=== PATIENT | female | born 1945 | race Caucasian/White ===

== ENCOUNTER → 2017-05-19 10:35 | Outpatient (CLI) | payer MEDICARE, OTHER, SELFPAY ==
[2017-05-19 11:31] LABS: Albumin, Serum 3.4 g/dL (3.2-5.0); BUN 19 mg/dL (7-18); BUN/Creat Ratio 17.6 RATIO (10-20); Calcium,Total 8.8 mg/dL (8.5-10.1); Chloride 105 mmol/L (98-107); Creatinine, Serum 1.08 mg/dL (0.55-1.02); EST Glomerular Filtration Rate 53 mL/min (>60); Est Glom Filt Rate - Afr Amer 64 mL/min (>60); Glucose 89 mg/dL (74-106); Phosphorus 2.8 mg/dL (2.5-4.9); Potassium 3.6 mmol/L (3.5-5.1); Sodium Level 141 mmol/L (136-145)
== END ==
PROVIDERS: Family Provider Family Medicine; PCP Family Medicine; Visit Provider Internal Medicine Nephrology
DX: N18.3 Chronic kidney disease, stage 3 (moderate) (principal)
CPT/HCPCS: 36415; 80069

== ENCOUNTER → 2017-07-27 12:55 | Outpatient (CLI) | payer MEDICARE, OTHER, SELFPAY ==
--- NOTE | 2017-07-27 12:57 | CDU_ITS ---
Reason For Study: Vertigo Rt. Velocities/BP Lt. Velocities/BP Prox CCA 97/12 cm/sec. Prox CCA 133/19 cm/sec. Mid CCA 104/16 cm/sec. Mid CCA 112/21 cm/sec. Dist CCA 87/12 cm/sec. Dist CCA 98/19 cm/sec. Prox ICA 96/22 cm/sec. Prox ICA 87/21 cm/sec. Mid ICA 103/24 cm/sec. Mid ICA 93/21 cm/sec. Dist ICA 129/38 cm/sec. Dist ICA 125/33 cm/sec. Rt. ICA/CCA = 1.24. Lt. ICA/CCA = 1.11. Prox ECA 140/8 cm/sec. Prox ECA 128/14 cm/sec. Rt. Vert. 48/9 cm/sec. Lt. Vert. 79/20 cm/sec. Right Extracranial There is heterogeneous, irregular atherosclerotic plaque noted in the right common carotid artery. There is heterogeneous, irregular atherosclerotic plaque noted in the right internal carotid artery. There is no significant atherosclerotic plaque noted in the right external carotid artery. Antegrade flow is noted in the right vertebral artery. Left Extracranial There is homogeneous, smooth atherosclerotic plaque noted in the left common carotid artery. There is heterogeneous, irregular atherosclerotic plaque noted in the left internal carotid artery. There is no significant atherosclerotic plaque noted in the left external carotid artery. Antegrade flow is noted in the left vertebral artery. Procedure Carotid Duplex [id number]. Exam performed in department. Interpretation Summary Minimal irregular calcific plague at the proximal right internal carotid with 50-69% stenosis, likely closer to 50%. Minimal irregular calcific plague at the proximal left internal carotid with <50% stenosis. Normal flow bilateral external carotids Patent and antegrade vertebrals bilaterally. Ordering Physician: Alexa Jack Referring Physician: Donny Herndon Performed By: Linda Walter, RDCS, RVT
[2017-07-27 15:31] LABS: Anion Gap 8 (5-15); BUN 24 mg/dL (7-18); BUN/Creat Ratio 18.3 RATIO (10-20); Calcium,Total 9.1 mg/dL (8.5-10.1); Chloride 106 mmol/L (98-107); Creatinine, Serum 1.31 mg/dL (0.55-1.02); EST Glomerular Filtration Rate 43 mL/min (>60); Est Glom Filt Rate - Afr Amer 51 mL/min (>60); Glucose 90 mg/dL (74-106); Potassium 3.6 mmol/L (3.5-5.1); Sodium Level 142 mmol/L (136-145)
== END ==
PROVIDERS: Family Provider Family Medicine; PCP Family Medicine; Visit Provider Physician Assistant Medical
DX: R42 Dizziness and giddiness (principal); R94.4 Abnormal results of kidney function studies
CPT/HCPCS: 36415; 80048; 93880

== ENCOUNTER → 2017-08-05 10:29 | Outpatient (CLI) | payer MEDICARE, OTHER, SELFPAY ==
[2017-08-05 10:34] LABS: Bacteria 0 SEEN /hpf (None Seen); Mucous, Urine 0 SEEN /hpf (<or=2+); Red Blood Cells-Urine 0 SEEN /hpf (0-5)
[2017-08-05 11:53] LABS: Color, Urine Yellow (Yellow); Glucose, Dipstick Normal (Normal); Ketone-Dipstick Negative (Negative); Leukocyte Esterase-Dipstick 500 /ul (Negative); Nitrite-Dipstick Negative (Negative); Occult Blood-Urine 10 /ul (Negative); Protein-Dipstick Negative (Negative); Urine Bilirubin Dipstick Negative (Negative); Urine Clarity Clear (Clear); Urine Urobilinogen Normal (Normal); Urine pH 6.5 (5.0 - 8.0)
[2017-08-05 11:56] LABS: Absolute Lymphocyte Count 1.93 X10^3/ul (0.83-4.51); Absolute Neutrophil Count 5.9 X10^3/uL (2.0-7.7); Basophil# 0.02 X10^3/uL; Basophil% 0.2 % (0-1); Eosinophil# 0.23 X10^3/uL; Eosinophils% 2.7 % (0-5); Hematocrit 41.2 % (37-47); Hemoglobin 13.1 g/dl (12.0-15.0); Lymphocyte # 1.93 X10^3/ul (4.0); Lymphocyte % 22.6 % (19-41); Mean Corp Hgb Conc 31.8 g/gl (32-36); Mean Corpuscular Volume 91.4 fL (81-99); Mean Platelet Vol. 9.8 fl (6.2-12.0); Monocyte# 0.41 X10^3/uL; Monocyte% 4.8 % (0-10); Neutrophil # 5.94 X10^3/uL (2.7-7.7); Neutrophil % 69.6 % (47-70); Platelet Count 280 K/mm3 (150-450); RBC Distribution Width CV 13.8 % (11.6-14.6); RBC Distribution Width SD 45.4 fl (35.1-43.9); Red Blood Count 4.51 M/mm3 (4.2-5.4); White Blood Count 8.5 K/mm3 (4.4-11.0)
[2017-08-05 11:58] LABS: POSITIVE COUNT NO; POSITIVE DIFFERENTIAL NO; POSITIVE MORPHOLOGY NO
[2017-08-05 12:14] LABS: Hemoglobin A1c 5.7 % (4.2-6.3)
[2017-08-05 12:19] LABS: Squamous Epithelial Cells - UA 0-5 SEEN /hpf (5-10); White Blood Cells 0-5 SEEN /hpf (0-5)
[2017-08-05 12:28] LABS: ALB/GLOB Ratio 0.9 RATIO (0.9-2.4); AST(SGOT) 11 U/L (15-37); Alanine Aminotransfer ALT/SGPT 21 U/L (13-56); Albumin, Serum 3.5 g/dL (3.2-5.0); Alkaline Phosphatase 111 U/L (45-117); Anion Gap 9 (5-15); BUN 19 mg/dL (7-18); BUN/Creat Ratio 16.2 RATIO (10-20); Calcium,Total 8.8 mg/dL (8.5-10.1); Chloride 107 mmol/L (98-107); Cholesterol 159 mg/dL (200); Creatinine, Serum 1.17 mg/dL (0.55-1.02); EST Glomerular Filtration Rate 48 mL/min (>60); Est Glom Filt Rate - Afr Amer 59 mL/min (>60); Globulin 3.8 g/dL (2.2-4.2); Glucose 89 mg/dL (74-106); High Density Lipoprotein 56 mg/dL; Potassium 3.9 mmol/L (3.5-5.1); Protein, Total 7.3 g/dL (6.4-8.2); Sodium Level 140 mmol/L (136-145); Triglycerides 177 mg/dL; Very Low Density Lipoprotein 35 mg/dL (5-40)
[2017-08-05 12:35] LABS: Protein, Urine (Random) 12.7 mg/dL (<11.9); Protein:Creat Ratio 141 mg/g CRE (0-200)
[2017-08-05 12:47] LABS: Vitamin D,25 Hydroxy 26.7 ng/mL (29.95-100.01)
[2017-08-05 12:49] LABS: Digoxin Level 1.22 ng/mL (0.80-2.00)
== END ==
PROVIDERS: Family Provider Family Medicine; PCP Family Medicine; Visit Provider Family Medicine
DX: I12.9 Hypertensive chronic kidney disease with stage 1 through stage 4 chronic kidney disease, or unspecified chronic kidney disease (principal); N18.3 Chronic kidney disease, stage 3 (moderate); R73.02 Impaired glucose tolerance (oral); E78.5 Hyperlipidemia, unspecified
CPT/HCPCS: 36415; 80053; 80061; 80162; 81001; 82306; 82570; 83036; 84156; 85025

== ENCOUNTER → 2017-11-23 11:08 | Outpatient (CLI) | payer MEDICARE, OTHER, SELFPAY ==
[2017-11-23 12:49] LABS: Protein, Urine (Random) < 6.0 mg/dL (<11.9)
[2017-11-23 13:14] LABS: Albumin, Serum 3.6 g/dL (3.2-5.0); BUN 19 mg/dL (7-18); BUN/Creat Ratio 17.8 RATIO (10-20); Calcium,Total 9.3 mg/dL (8.5-10.1); Chloride 105 mmol/L (98-107); Creatinine, Serum 1.07 mg/dL (0.55-1.02); EST Glomerular Filtration Rate 54 mL/min (>60); Est Glom Filt Rate - Afr Amer 65 mL/min (>60); Glucose 101 mg/dL (74-106); Potassium 3.7 mmol/L (3.5-5.1); Sodium Level 140 mmol/L (136-145)
== END ==
PROVIDERS: Family Provider Family Medicine; PCP Family Medicine; Visit Provider Internal Medicine Nephrology
DX: N18.3 Chronic kidney disease, stage 3 (moderate) (principal)
CPT/HCPCS: 36415; 80069; 82570; 84156

== ENCOUNTER → 2017-12-08 10:28 | Outpatient (CLI) | payer MEDICARE, OTHER, SELFPAY ==
[2017-12-08 10:31] LABS: Bacteria 0 SEEN /hpf (None Seen); Mucous, Urine 0 SEEN /hpf (<or=2+); Red Blood Cells-Urine 0 SEEN /hpf (0-5)
[2017-12-08 12:15] LABS: Glucose, Dipstick Normal (Normal); Ketone-Dipstick Negative (Negative); Leukocyte Esterase-Dipstick 25 /ul (Negative); Nitrite-Dipstick Negative (Negative); Occult Blood-Urine Negative /ul (Negative); Protein-Dipstick Negative (Negative); Urine Bilirubin Dipstick Negative (Negative); Urine Urobilinogen Normal (Normal)
[2017-12-08 12:21] LABS: Color, Urine Yellow (Yellow); Urine Clarity Clear (Clear)
[2017-12-08 12:29] LABS: AST(SGOT) 18 U/L (15-37); Alanine Aminotransfer ALT/SGPT 27 U/L (13-56); Albumin, Serum 3.8 g/dL (3.2-5.0); Alkaline Phosphatase 108 U/L (45-117); Anion Gap 11 (5-15); BUN 23 mg/dL (7-18); BUN/Creat Ratio 17.6 RATIO (10-20); Calcium,Total 9.1 mg/dL (8.5-10.1); Chloride 104 mmol/L (98-107); Cholesterol 144 mg/dL (200); Creatinine, Serum 1.31 mg/dL (0.55-1.02); EST Glomerular Filtration Rate 42 mL/min (>60); Est Glom Filt Rate - Afr Amer 51 mL/min (>60); Globulin 3.9 g/dL (2.2-4.2); Glucose 96 mg/dL (74-106); High Density Lipoprotein 53 mg/dL; Potassium 3.7 mmol/L (3.5-5.1); Protein, Total 7.7 g/dL (6.4-8.2); Sodium Level 138 mmol/L (136-145); Squamous Epithelial Cells - UA 0-5 SEEN /hpf (5-10); Triglycerides 134 mg/dL; Very Low Density Lipoprotein 27 mg/dL (5-40); White Blood Cells 0-5 SEEN /hpf (0-5)
[2017-12-08 12:46] LABS: Hemoglobin A1c 5.4 % (4.2-6.3)
[2017-12-08 15:22] LABS: Absolute Lymphocyte Count 1.66 X10^3/ul (0.83-4.51); Basophil# 0.02 X10^3/uL; Basophil% 0.2 % (0-1); Eosinophil# 0.21 X10^3/uL; Eosinophils% 2.5 % (0-5); Hematocrit 42.3 % (37-47); Hemoglobin 13.7 g/dl (12.0-15.0); Lymphocyte # 1.66 X10^3/ul (4.0); Lymphocyte % 19.9 % (19-41); Mean Corp Hgb Conc 32.4 g/gl (32-36); Mean Corpuscular Hgb 29.6 pg (27.0-32.0); Mean Corpuscular Volume 91.4 fL (81-99); Mean Platelet Vol. 9.9 fl (6.2-12.0); Monocyte# 0.49 X10^3/uL; Monocyte% 5.9 % (0-10); Neutrophil # 5.96 X10^3/uL (2.7-7.7); Neutrophil % 71.4 % (47-70); POSITIVE COUNT NO; POSITIVE DIFFERENTIAL NO; POSITIVE MORPHOLOGY NO; Platelet Count 297 K/mm3 (150-450); RBC Distribution Width CV 14.2 % (11.6-14.6); Red Blood Count 4.63 M/mm3 (4.2-5.4); White Blood Count 8.4 K/mm3 (4.4-11.0)
[2017-12-09 09:53] LABS: Vitamin D,25 Hydroxy 45.3 ng/mL (29.95-100.01)
== END ==
PROVIDERS: Family Provider Family Medicine; PCP Family Medicine; Visit Provider Family Medicine
DX: I10 Essential (primary) hypertension (principal); E55.9 Vitamin D deficiency, unspecified; R73.02 Impaired glucose tolerance (oral); E78.5 Hyperlipidemia, unspecified
CPT/HCPCS: 36415; 80053; 80061; 81001; 82306; 83036; 85025

== ENCOUNTER → 2018-04-07 10:40 | Outpatient (CLI) | payer MEDICARE, OTHER, SELFPAY ==
[2017-07-15 13:31] VITALS: BMI 33.0
[2018-04-07 12:31] LABS: Absolute Lymphocyte Count 1.81 X10^3/ul (0.83-4.51); Absolute Neutrophil Count 5.5 X10^3/uL (2.0-7.7); Basophil# 0.02 X10^3/uL; Basophil% 0.2 % (0-1); Eosinophil# 0.28 X10^3/uL; Eosinophils% 3.5 % (0-5); Hematocrit 42.7 % (37-47); Hemoglobin 13.9 g/dl (12.0-15.0); Lymphocyte # 1.81 X10^3/ul (4.0); Lymphocyte % 22.5 % (19-41); Mean Corp Hgb Conc 32.6 g/gl (32-36); Mean Corpuscular Hgb 29.9 pg (27.0-32.0); Mean Corpuscular Volume 91.8 fL (81-99); Mean Platelet Vol. 9.7 fl (6.2-12.0); Monocyte# 0.44 X10^3/uL; Monocyte% 5.5 % (0-10); Neutrophil # 5.47 X10^3/uL (2.7-7.7); Neutrophil % 68.1 % (47-70); Platelet Count 297 K/mm3 (150-450); RBC Distribution Width CV 14.4 % (11.6-14.6); RBC Distribution Width SD 47.2 fl (35.1-43.9); Red Blood Count 4.65 M/mm3 (4.2-5.4)
[2018-04-07 12:33] LABS: POSITIVE COUNT NO; POSITIVE DIFFERENTIAL NO; POSITIVE MORPHOLOGY NO
[2018-04-07 12:48] LABS: Hemoglobin A1c 5.9 % (4.2-6.3)
[2018-04-07 12:49] LABS: AST(SGOT) 16 U/L (15-37); Alanine Aminotransfer ALT/SGPT 26 U/L (13-56); Albumin, Serum 3.6 g/dL (3.2-5.0); Alkaline Phosphatase 121 U/L (45-117); Anion Gap 9 (5-15); BUN 17 mg/dL (7-18); BUN/Creat Ratio 14.7 RATIO (10-20); Chloride 106 mmol/L (98-107); Cholesterol 206 mg/dL (200); Creatinine, Serum 1.16 mg/dL (0.55-1.02); EST Glomerular Filtration Rate 49 mL/min (>60); Est Glom Filt Rate - Afr Amer 59 mL/min (>60); Globulin 3.6 g/dL (2.2-4.2); Glucose 89 mg/dL (74-106); High Density Lipoprotein 59 mg/dL; Protein, Total 7.2 g/dL (6.4-8.2); Sodium Level 142 mmol/L (136-145); Triglycerides 184 mg/dL; Very Low Density Lipoprotein 37 mg/dL (5-40)
[2018-04-07 13:05] LABS: Vitamin D,25 Hydroxy 39.4 ng/mL (29.95-100.01)
== END ==
PROVIDERS: Family Provider Family Medicine; PCP Family Medicine; Visit Provider Family Medicine
DX: E55.9 Vitamin D deficiency, unspecified (principal); I10 Essential (primary) hypertension; R73.02 Impaired glucose tolerance (oral)
CPT/HCPCS: 36415; 80053; 80061; 82306; 83036; 85025

== ENCOUNTER → 2018-05-06 12:09 | Outpatient (CLI) | payer MEDICARE, OTHER, SELFPAY ==
[2017-07-15 13:31] VITALS: BMI 33.0
== END ==
LOC: MFPLAB 12:10 → LABSPEC 12:10
PROVIDERS: Family Provider Family Medicine; PCP Family Medicine; Visit Provider Family Medicine
DX: N39.0 Urinary tract infection, site not specified (principal)
CPT/HCPCS: 87086; 87088; 87186

== ENCOUNTER → 2018-07-13 09:52 | Outpatient (CLI) | payer MEDICARE, OTHER, SELFPAY ==
[2018-06-21 14:02] VITALS: BMI 36.1
[2018-07-13 11:23] LABS: Albumin, Serum 3.6 g/dL (3.2-5.0); BUN 18 mg/dL (7-18); Calcium,Total 8.9 mg/dL (8.5-10.1); Chloride 105 mmol/L (98-107); Creatinine, Serum 1.06 mg/dL (0.55-1.02); EST Glomerular Filtration Rate 54 mL/min (>60); Est Glom Filt Rate - Afr Amer 66 mL/min (>60); Glucose 91 mg/dL (74-106); Sodium Level 140 mmol/L (136-145)
== END ==
PROVIDERS: Family Provider Family Medicine; PCP Family Medicine; Referring Provider Internal Medicine Nephrology; Visit Provider Internal Medicine Nephrology
DX: N17.9 Acute kidney failure, unspecified (principal)
CPT/HCPCS: 36415; 80069

== ENCOUNTER → 2018-07-29 11:33 | Outpatient (CLI) | payer MEDICARE, OTHER, SELFPAY ==
[2018-06-21 14:02] VITALS: BMI 36.1
[2018-07-29 15:37] LABS: Absolute Lymphocyte Count 1.74 X10^3/ul (0.83-4.51); Absolute Neutrophil Count 6.7 X10^3/uL (2.0-7.7); Basophil# 0.02 X10^3/uL; Basophil% 0.2 % (0-1); Eosinophil# 0.21 X10^3/uL; Eosinophils% 2.3 % (0-5); Hematocrit 44.3 % (37-47); Hemoglobin 14.2 g/dl (12.0-15.0); Lymphocyte # 1.74 X10^3/ul (4.0); Lymphocyte % 18.9 % (19-41); Mean Corp Hgb Conc 32.1 g/gl (32-36); Mean Corpuscular Hgb 29.3 pg (27.0-32.0); Mean Corpuscular Volume 91.3 fL (81-99); Mean Platelet Vol. 9.9 fl (6.2-12.0); Monocyte% 5.4 % (0-10); Neutrophil # 6.69 X10^3/uL (2.7-7.7); Neutrophil % 72.9 % (47-70); Platelet Count 304 K/mm3 (150-450); RBC Distribution Width CV 14.7 % (11.6-14.6); RBC Distribution Width SD 47.9 fl (35.1-43.9); Red Blood Count 4.85 M/mm3 (4.2-5.4); White Blood Count 9.2 K/mm3 (4.4-11.0)
[2018-07-29 15:39] LABS: POSITIVE COUNT NO; POSITIVE DIFFERENTIAL NO; POSITIVE MORPHOLOGY NO
[2018-07-29 15:53] LABS: ALB/GLOB Ratio 1.2 RATIO (0.9-2.4); AST(SGOT) 21 U/L (15-37); Alanine Aminotransfer ALT/SGPT 29 U/L (13-56); Albumin, Serum 3.8 g/dL (3.2-5.0); Alkaline Phosphatase 121 U/L (45-117); Anion Gap 10 (5-15); BUN 21 mg/dL (7-18); BUN/Creat Ratio 17.6 RATIO (10-20); Calcium,Total 9.3 mg/dL (8.5-10.1); Chloride 106 mmol/L (98-107); Cholesterol 176 mg/dL (200); Creatinine, Serum 1.19 mg/dL (0.55-1.02); EST Glomerular Filtration Rate 47 mL/min (>60); Est Glom Filt Rate - Afr Amer 57 mL/min (>60); Globulin 3.1 g/dL (2.2-4.2); Glucose 108 mg/dL (74-106); High Density Lipoprotein 55 mg/dL; Potassium 4.1 mmol/L (3.5-5.1); Protein, Total 6.9 g/dL (6.4-8.2); Sodium Level 143 mmol/L (136-145); Triglycerides 270 mg/dL; Very Low Density Lipoprotein 54 mg/dL (5-40)
[2018-07-29 16:08] LABS: Hemoglobin A1c 5.9 % (4.2-6.3)
[2018-07-29 16:52] LABS: Vitamin D,25 Hydroxy 29.9 ng/mL (29.95-100.01)
== END ==
PROVIDERS: Family Provider Family Medicine; PCP Family Medicine; Referring Provider Family Medicine; Visit Provider Family Medicine
DX: I10 Essential (primary) hypertension (principal); E78.5 Hyperlipidemia, unspecified; E55.9 Vitamin D deficiency, unspecified; R73.02 Impaired glucose tolerance (oral)
CPT/HCPCS: 36415; 80053; 80061; 82306; 83036; 85025

== ENCOUNTER → 2018-10-27 09:34 | Outpatient (CLI) | payer MEDICARE, OTHER, SELFPAY ==
[2018-06-21 14:02] VITALS: BMI 36.1
--- NOTE | 2018-10-27 09:39 | BD_ITS ---
STUDY: DUAL ENERGY X-RAY ABSORPTIOMETRY / DXA REASON FOR EXAM: Female, 73 years old. The patient is postmenopausal. Loss of eye. TECHNIQUE: Bone Mineral Density (BMD) measurements of lumbar spine and bilateral hips were obtained. COMPARISON: None. FINDINGS: Lumbar Spine (L1-L4): g/cm2 (1.088) / T-score (-0.7) / Z-score (1.0) Findings are suggestive of normal bone density with a low fracture risk. Left Femur Total: g/cm2 (0.966) / T-score (-0.3) / Z-score (1.3) Left Femoral Neck: g/cm2 (0.830) / T-score (-1.5) / Z-score (0.3) Right Femur Total: g/cm2 (0.972) / T-score (-0.3) / Z-score (1.3) Right Femoral Neck: g/cm2 (0.869) / T-score (-1.2) / Z-score (0.6) BD/Dexa Bone Density Study IMPRESSION: The patient is considered osteopenic as outlined below according to World [employer] Organization (WHO) criteria with a low fracture risk. Reference Information: The T-score is the number of standard deviations above or below the standard which is normal for young adults at their peak bone mineral density. The World Health Organization (WHO) interprets the T-scores as follows: Above -1 Normal bone density Between -1 and -2.5 Osteopenia Equal to / or below -2.5 Osteoporosis As a practical clinical guideline, osteopenia may be graded as follows: Mild -1 through -1.5 Moderate -1.6 through -2.0 Severe -2.1 through -2.4 The Z-score is the number of standard deviations above or below age-matched controls. A Z-score of less than -1.5 would be considered abnormal. References: 1. NIH Osteoporosis and Related Bone Diseases http://www.osteo.org 2. International Society for Clinical Densitometry http://www.iscd.org 3. National Osteoporosis Foundation http://www.nof.org Electronically Signed: Parish Dhillon, at 11:05 EDT , Service support ,
== END ==
PROVIDERS: Family Provider Family Medicine; PCP Family Medicine; Referring Provider Family Medicine; Visit Provider Family Medicine
DX: Z13.820 Encounter for screening for osteoporosis (principal); Z78.0 Asymptomatic menopausal state
CPT/HCPCS: 77080

== ENCOUNTER → 2018-11-09 15:29 | Outpatient (CLI) | payer MEDICARE, OTHER, SELFPAY ==
[2018-06-21 14:02] VITALS: BMI 36.1
--- NOTE | 2018-11-09 15:31 | BI_ITS ---
MAMMOGRAPHY - BILATERAL SCREENING REASON FOR EXAM: Female, 73 years old. Routine annual screening examination. PERTINENT HISTORY: Non-contributory. TECHNIQUE: Digital bilateral breast brandt (3D mammographic acquisition) in the CC and MLO projections. 2-D mediolateral oblique (MLO) and craniocaudad (CC) views of both breasts were obtained. CAD: Full Field Digital Mammography with Computer Added Detection was performed. COMPARISON: Comparison is made with prior examination dated September 05, 2016. FINDINGS: Breast Composition: The breasts are heterogeneously dense, which may obscure small masses. Stable subcentimeter well-defined nodules in the central aspect of the left breast suggestive of small cysts. Correlation with ultrasound is recommended. Stable appearance of the densely calcified nodule in the inferior medial aspect of the right breast in keeping with a calcifying fibroadenoma. No other significant abnormalities are identified. There has been no significant change since the prior study. BI/SCREEN MAMM (CAD) W/BRANDT BILAT IMPRESSION: Stable bilateral screening mammogram. Correlation with ultrasound of the left breast is recommended to assess the subcentimeters nodules most likely representing cysts. ASSESSMENT CATEGORY: BIRADS Category 0: Incomplete. Need additional imaging evaluation. A letter regarding these results will be sent to the patient by the facility within 30 days. Approximately 10% of breast cancers are not detected by mammography. A normal mammogram should not delay biopsy of a clinically suspicious abnormality. [id number] Electronically Signed: Parish Dhillon, at 9:14 EDT , Service support ,
== END ==
PROVIDERS: Family Provider Family Medicine; PCP Family Medicine; Referring Provider Family Medicine; Visit Provider Family Medicine
DX: Z12.31 Encounter for screening mammogram for malignant neoplasm of breast (principal)
CPT/HCPCS: 77063; 77067

== ENCOUNTER → 2018-11-12 09:54 | Outpatient (CLI) | payer MEDICARE, OTHER, SELFPAY ==
[2018-06-21 14:02] VITALS: BMI 36.1
--- NOTE | 2018-11-12 09:57 | US_ITS ---
STUDY: ULTRASOUND BREAST - LEFT REASON FOR EXAM: Female, 73 years old. Abnormal screening mammogram. TECHNIQUE: Axial and longitudinal images of the LEFT breast were performed with a high resolution ultrasound transducer. COMPARISON: Comparison is made with prior mammogram dated November 09, 2018. FINDINGS: LEFT Breast: The mammographic abnormality correspond to multiple small cysts. The largest cyst measures 7 mm x 6 mm x 5 mm. This is at the 7:00 position of the breast at 3 cm from the nipple. US/Breast Limited Unilateral IMPRESSION: Multiple small cysts. Routine annual mammographic follow-up is recommended. ASSESSMENT CATEGORY: BIRADS Category 2: Benign. A letter regarding these results will be sent to the patient by the facility within 30 days. Electronically Signed: Parish Dhillon, at 11:09 EDT , Service support ,
== END ==
PROVIDERS: Family Provider Family Medicine; PCP Family Medicine; Referring Provider Family Medicine; Visit Provider Family Medicine
DX: R92.8 Other abnormal and inconclusive findings on diagnostic imaging of breast (principal)
CPT/HCPCS: 76642

== ENCOUNTER → 2018-12-14 11:05 | Outpatient (CLI) | payer MEDICARE, OTHER, SELFPAY ==
[2018-06-21 14:02] VITALS: BMI 36.1
[2018-12-14 12:33] LABS: Absolute Lymphocyte Count 1.45 X10^3/uL (0.83-4.51); Absolute Neutrophil Count 7.4 X10^3/uL (2.0-7.7); Basophil# 0.05 X10^3/uL; Basophil% 0.5 % (0-1); Eosinophil# 0.36 X10^3/uL; Eosinophils% 3.6 % (0-5); Hematocrit 42.3 % (37-47); Hemoglobin 13.4 g/dL (12.0-15.0); Lymphocyte # 1.45 X10^3/ul (4.0); Lymphocyte % 14.5 % (19-41); Mean Corp Hgb Conc 31.7 g/dL (32-36); Mean Corpuscular Hgb 29.1 pg (27.0-32.0); Mean Platelet Vol. 9.6 fl (6.2-12.0); Monocyte# 0.65 X10^3/uL; Monocyte% 6.5 % (0-10); NRBC Flagged by Analyzer 0 % (0-5); Neutrophil # 7.44 X10^3/uL (2.7-7.7); Neutrophil % 74.6 % (47-70); Platelet Count 303 K/mm3 (150-450); RBC Distribution Width CV 14.3 % (11.6-14.6); RBC Distribution Width SD 47.8 fl (35.1-43.9)
[2018-12-14 12:45] LABS: Hemoglobin A1c 5.6 % (4.2-6.3)
[2018-12-14 12:50] LABS: ALB/GLOB Ratio 0.9 RATIO (0.9-2.4); AST(SGOT) 18 U/L (15-37); Alanine Aminotransfer ALT/SGPT 24 U/L (13-56); Albumin, Serum 3.5 g/dL (3.2-5.0); Alkaline Phosphatase 112 U/L (45-117); Anion Gap 8 (5-15); BUN 25 mg/dL (7-18); BUN/Creat Ratio 22.5 RATIO (10-20); Calcium,Total 9.4 mg/dL (8.5-10.1); Chloride 106 mmol/L (98-107); Cholesterol 152 mg/dL (200); Creatinine, Serum 1.11 mg/dL (0.55-1.02); EST Glomerular Filtration Rate 51 mL/min (>60); Est Glom Filt Rate - Afr Amer 62 mL/min (>60); Globulin 3.7 g/dL (2.2-4.2); Glucose 89 mg/dL (74-106); High Density Lipoprotein 52 mg/dL; Magnesium 1.9 mg/dL (1.6-2.6); Potassium 3.8 mmol/L (3.5-5.1); Protein, Total 7.2 g/dL (6.4-8.2); Sodium Level 141 mmol/L (136-145); Triglycerides 201 mg/dL; Very Low Density Lipoprotein 40 mg/dL (5-40)
[2018-12-14 13:12] LABS: Vitamin D,25 Hydroxy 49.8 ng/mL (29.95-100.01)
== END ==
PROVIDERS: Family Provider Family Medicine; PCP Family Medicine; Referring Provider Family Medicine; Visit Provider Family Medicine
DX: E55.9 Vitamin D deficiency, unspecified (principal); I10 Essential (primary) hypertension; E78.5 Hyperlipidemia, unspecified; R73.02 Impaired glucose tolerance (oral); I47.1 Supraventricular tachycardia
CPT/HCPCS: 36415; 80053; 80061; 82306; 83036; 83735; 85025

== ENCOUNTER → 2018-12-28 09:08 | Outpatient (CLI) | payer MEDICARE, OTHER, SELFPAY ==
[2018-06-21 14:02] VITALS: BMI 36.1
--- NOTE | 2018-12-28 09:09 | RAD_ITS ---
STUDY: X-RAY - ESOPHAGUS (BARIUM SWALLOW) WITH FLUOROSCOPY REASON FOR EXAM: Female, 73 years old. Worsening dysphagia in the lower esophagus. TECHNIQUE: 15 view(s) of the esophagus were obtained following swallowing of barium. FLUOROSCOPY TIME (if supplied): (0:30) minutes/seconds COMPARISON: None. FINDINGS: There is no demonstrated esophageal foreign body. There is no demonstrated stricture or mucosal abnormality. There is a small hiatal hernia of the fundus of the stomach. Mild degree of gastroesophageal reflux. The patient ingested a 12 mm tablet of barium. The tablet history at the gastroesophageal junction. There is atherosclerotic calcification of the aortic arch with tortuosity of the descending aorta. Normal visualized pulmonary parenchyma. There are diffuse degenerative changes of the visualized thoracic spine. RAD/Esophagus Only IMPRESSION: Small sliding hiatal hernia with mild degree of gastroesophageal reflux. The ingested 12 mm tablet of barium is trapped at the gastroesophageal junction. Electronically Signed: Parish Dhillon, at 9:32 EDT , Service support ,
== END ==
PROVIDERS: Family Provider Family Medicine; PCP Family Medicine; Referring Provider Family Medicine; Visit Provider Family Medicine
DX: R13.10 Dysphagia, unspecified (principal)
CPT/HCPCS: 74220

== ENCOUNTER → 2019-02-01 13:34 | Outpatient (CLI) | payer MEDICARE, OTHER, SELFPAY ==
[2019-01-04 13:00] VITALS: BMI 36.2
== END ==
PROVIDERS: Family Provider Family Medicine; PCP Family Medicine; Referring Provider Family Medicine; Visit Provider Family Medicine
DX: N39.0 Urinary tract infection, site not specified (principal)
CPT/HCPCS: 87086; 87088; 87186

== ENCOUNTER 2019-02-04 08:49 | Day surgery (SDC) | payer MEDICARE, OTHER, SELFPAY ==
--- NOTE | 2019-02-02 01:35 | HP_ITS ---
Intake Vital Signs 02/02/19 Body Mass Index (BMI) 36.2 02/02/19 Height 5 ft 5 in 02/02/19 Weight: 210 lb 02/02/19 Body Mass Index (BMI) 34.9 02/02/19 Blood Pressure 154/80 H 02/02/19 Blood Pressure Location Rt brachial 02/02/19 Blood Pressure Position Sitting 02/02/19 Respiratory Rate 18 Intake Visit Reasons: Dysphagia Service Planner Required: No Is patient in pain?: No Allergies No Known Allergies Allergy (Verified 02/02/19 10:04) Medications lactobacillus combination no.8 3 billion cell capsule 3,000 mmu cells PO QDAY 04/20/17 [History Confirmed 02/02/19] magnesium 400 mg (as magnesium oxide) capsule 400 mg PO QDAY cap 04/20/17 [History Confirmed 02/02/19] metoprolol succinate ER 100 mg tablet,extended release 24 hr 100 mg PO QDAY tab 04/20/17 [History Confirmed 02/02/19] multivitamin tablet 1 tab PO QDAY 04/20/17 [History Confirmed 02/02/19] triamterene 37.5 mg-hydrochlorothiazide 25 mg capsule 1 cap PO QDAY 04/20/17 [History Confirmed 02/02/19] aspirin 81 mg tablet,delayed release 81 mg PO QDAY 11/25/17 [History Confirmed 02/02/19] coenzyme Q10 100 mg capsule 100 mg PO QDAY #1 cap 11/25/17 [Rx Confirmed 02/02/19] cholecalciferol (vitamin D3) 4,000 unit capsule 4,000 unit PO DAILY 06/21/18 [History Confirmed 02/02/19] omega-3 fatty acids 1,000 mg capsule 1,000 mg PO DAILY 06/21/18 [History Confirmed 02/02/19] turmeric 400 mg capsule mg PO BID cap 06/21/18 [History Confirmed 02/02/19] flecainide 50 mg tablet 50 mg PO Q12H #180 tab 12/31/18 [Rx Confirmed 02/02/19] calcium carbonate 600 mg calcium (1,500 mg) tablet 600 mg PO DAILY 01/04/19 [History Confirmed 02/02/19] digoxin 125 mcg tablet 125 mcg PO QDAY #90 tab 01/04/19 [Rx Confirmed 02/02/19] potassium chloride ER 10 mEq tablet,extended release(part/cryst) 10 meq PO .every other day #15 tab 01/10/19 [Rx Confirmed 02/02/19] rosuvastatin 10 mg tablet 20 mg PO QDAY tab 02/02/19 [History Confirmed 02/02/19] PFSH Medical History Hypertension (Chronic) Paroxysmal SVT (supraventricular tachycardia) (Chronic) Hyperlipidemia (Acute) Obesity (Acute) CKD (chronic kidney disease) stage 3, GFR 30-59 ml/min (Chronic) Surgical History History of cholecystectomy (Resolved) Hx of appendectomy (Resolved) Family History Mother CAD (coronary artery disease) Brother Aortic aneurysm Father CAD (coronary artery disease) Social History (Updated 02/02/19 @ 13:35 by Rubén Hansen MD) Smoking Status: Former smoker alcohol intake: current alcohol intake frequency: holidays/special occasions only Alcohol type: hard liquor substance use type: does not use caffeine: Yes Type: tea what type of physical activity do you participate in: none seatbelt use: always do you feel safe at home: Yes HPI HPI HPI: KEERTHI CONDE, is a 73 F who presents to the office today for HPI HPI Surgical H&P: Yes HPI: KEERTHI CONDE, is a 73 F who presents to the office today for surgical consultation regarding intermittent esophageal food bolus obstruction.. The patient is referred by Dr. Donny Moncada and a written copy of my surgical consult recommendations will be returned to him. The patient states that occasionally intermittently when she eats particular foods she will get a horrible pain in her retrosternal area and will have saliva and bubbles until it passes. She says sometimes taking sugar and lemon will help break up the lodging. She has not had an upper endoscopy for this problem. For over 10 years she had has the symptoms. She states her brother who is now had to take pills 30 minutes before meals to relax muscles. She has a past history of heavy tobacco use a 2 pack/day. She claims she quit 20 years ago. She denies personal family history of Vásquez's esophagus. She states that she does not experience reflux symptoms. She has not been taking any type of acid reducing medication. She denies bright red blood per rectum or melena. She has not had any weight loss and actually slightly progressive weight gain. Her most recent colonoscopy was in 2011. She was told next routine exam in 10 years. She does see Dr. Prabhjot Krishnamurthy because she has paroxysmal supraventricular tachycardia. She also notes that she has a known history of extracranial carotid artery occlusive disease. We have records dated July 18, 2016 carotid duplex exam performed at the [facility] demonstrating 20 to 39% stenosis of the right internal carotid. Bidirectional flow in the right vertebral consistent with incomplete subclavian steal. 50 to 99% stenosis of the right subclavian. 40 to 59% stenosis of the left internal carotid. Patent antegrade left vertebral. To help evaluate her swallowing problems on December 28, 2018 at the [facility] the patient had barium swallow. This demonstrated no foreign body at that time. Small hiatal hernia. Mild degree of reflux. The 12 mm barium tablet became lodged at the EG junction. As of July 29, 2018 hemoglobin was 14.2 with hematocrit of 44.3 and platelet count 304,000. BUN is 21 creatinine 1.19. ROS General General: Yes weight change; no appetite, fatigue, colon cancer, breast cancer or weakness HEENT HEENT: Yes difficulty swallowing; no eye injury, eye surgery, swollen glands or hoarseness Endo Endocrine: No thyroid disease, diabetes mellitus, thyroid cancer, Hair loss, heat intolerance or cold intolerance Skin Skin: No rash or changing moles Breast Breast: No left breast lump, right breast lump, nipple discharge, breast pain, abnormal mammogram, abnormal US or breast enlargement Musc Musculoskeletal: Yes arthritis; no back problems, rheumatoid arthritis, gout or joint pain Cardio Cardiovascular: Yes murmur, atrial fibrillation and high blood pressure; no pacemaker, heart disease, heart attack, heart stent, palpitations, shortness of breat with exertion or chest pain Psych Psychiatric: No depression, anxiety or hearing voices Resp Respiratory: No shortness of breath, No sleep apnea, No cough, No COPD, No asthma, No emphysema, No wheezing Gastro Gastrointestinal: No abdominal pain, No nausea or vomiting, No diarrhea, No constipation, No blood in stool, No acid reflux, No hemorrhoids, No ulcers, Yes gallbladder problem, No black,tarry stools Tan Hematologic: No blood thinners, No blood disorders, No bleeding, No anemia, No blood clots Neuro Neurologic: No system reviewed and no additional complaints, except as docu, No as per HPI, No abnormal walking, No abnormal hearing, No abnormal movements, No abnormal speech, No behavioral changes, No burning sensations, No confusion, No seizure-like activity, No unsteadiness, No dizziness, No localized weakness, No frequent falls, No headache(s), No lack of coordination, No loss of vision, No memory loss, No numbness, No other visual disturbances, No radiating pain, No restless legs, No sensory deficit, No fainting, No tingling, No tremor(s), No weakness, No other Exam Const General: cooperative, comfortable, no acute distress Nutritional Appearance: obese Orientation: alert, awake HENNE Head: normal to inspection Chest Breast Palpation: No nipple discharge Other: Mild kyphosis noted Resp Effort & Inspection: normal respiratory effort Auscultation: clear to auscultation bilaterally Cardio Rhythm: regular rhythm Heart Sounds: murmur Other: Bilateral radials and brachials are 3+ Bilateral carotids 3+. Soft 1/6 bruit inferior right neck occasional ectopic beat noted GI Inspection: obesity Palpation: soft, no hepatosplenomegaly Auscultation: normal bowel sounds Skin General: no rashes or lesions noted Neuro Cognition: normal cognition Extrem General: no calf tenderness bilaterally Psych Affect: normal affect Assessment & Plan Problems 1. Hiatal hernia with gastroesophageal reflux K21.9; K44.9 2. 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 T18.108A 3. Stenosis of left carotid artery I65.22 Plan Findings are consistent with episodes of distal esophageal food bolus esophageal obstruction. Adarsh appears to be a primary culprit. Barium swallow demonstrates a small hiatal hernia with reflux disease. She may very well have silent reflux problems. She may have a Schatzki ring I am recommending the patient a esophagogastroduodenoscopy with biopsy and if need be distal esophageal dilatation. In great detail with her present I have described the technique, benefits, risks, alternatives. She has had an opportunity to ask and have questions answered. We will utilize monitored anesthesia care. Regarding her asymptomatic extracranial carotid artery occlusive disease we will obtain carotid duplex imaging. It appears from previous imaging that the patient had evolving right subclavian steal phenomena I very much appreciate the kind opportunity of assisting with her surgical care. CC: Dr Donny Hansen M.D., F.A.C.S. Coding Level of Care Code 87428 Diagnoses Hiatal hernia with gastroesophageal reflux K21.9; K44.9 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 T18.108A Stenosis of left carotid artery I65.22 ??Carotid artery disease type: stenosis 02/02/19 1335 <Electronically signed by Rubén mayo MD> Date _ Rubén Hansen MD I have re-examined the patient. There are no clinical changes since date of exam.
[2019-02-02 10:05] VITALS: BMI 36.2
--- NOTE | 2019-02-04 | IMM_PTH ---
PATIENT: KEERTHI CONDE LOC: EN U#:[id number] AGE/SX: 73/F ROOM: RE02/04/[address]: Dr. Rubén Hansen MD : 1945 BED: DIS: 02/04/2019 SPEC #: [id number] RECD: 02/07/19 10:22 STATUS: ARMANDO REQ #: [id number] LEBRON: 02/04/19 00:[address]: Rubén Hansen DEPT: IMMUNOHISTOCHEMISTRY RECD BY: Emely Wilde ENTERED: 02/07/19 10:22 SP TYPE: IMMUNO OTHR DR: Dr. Donny Herndon MD Tissues: A - Stomach, NOS Procedures: H Pylori (initial) PHYSICIAN & INSTITUTION [place] [id number] SPECIMEN INFORMATION: Tissue Source: A - Antrum biopsy Clinical Info: Dysphagia Specimen Number: [id number] CPT code: 37510 METHODOLOGY: Deparaffinized sections of prefer/formalin-fixed tissue or PAP/DQ stained slides are incubated with monoclonal/polyclonal antibodies/oligonucleotide probes. Localization is made via biotin free immunoperoxidase method. Appropriate controls are performed and reacted as expected. Results on target cell population are indicated in the following table: RESULTS: ANTIBODY / CLONE RESULT Block A H Pylori (polyclonal) negative These tests were developed and their performance characteristics determined by [facility]. They may not have been cleared or approved by the U.S. Food and Drug Administration. The FDA has determined that such clearance or approval is not necessary. The above immunohistochemical/dualISH markers are ordered and reviewed by the Pathologist. INTERPRETATION: A. Antrum biopsy: Negative for Helicobacter pylori organisms. SJ:janice 02/07/19
[2019-02-04 09:24] VITALS: BP 137/48; PULSE 66; RESP 16; TEMP 36.3; O2SAT 96; BMI 36.3
[2019-02-04] MEDS: Lactated Ringers 1,000 ML 100 ML IV (09:35)
--- NOTE | 2019-02-04 10:00 | EGD_PTH ---
PATIENT: KEERTHI CONDE LOC: EN U#:[id number] AGE/SX: 73/F ROOM: RE02/04/[address]: Dr. Rubén Hansen MD : 1945 BED: DIS: 02/04/2019 SPEC #: [id number] RECD: 02/04/19 12:43 STATUS: ARMANDO CHRYSTAL #: [id number] LEBRON: 02/04/19 10:[address]: Rubén Hansen DEPT: SURGICAL PATHOLOGY RECD BY: Isael Graf ENTERED: 02/04/19 13:10 SP TYPE: EGD BIOPSY OT DR: Dr. Donny Herndon MD Tissues: A - Gastric mucous membrane B - Esophageal mucous membrane Procedures: Special Stain Group II Surgery Specimen Level IV Alcian Blue/PAS (control) HEADER OPERATION: EGD ([facility] [place]), possible dilation PRE-OP DIAGNOSIS: Dysphagia TISSUE SUBMITTED: A - Antrum biopsy, B - Schatzki ring biopsy MICROSCOPIC DIAGNOSIS A. Antrum biopsy: Mild gastritis. See microscopic description and comment. B. Schatzki ring biopsy: A fragment of gastroesophageal mucosa with moderate chronic inflammation and changes consistent with gastroesophageal reflux disease. Intestinal metaplasia (goblet cell metaplasia) is not identified. See comment. SJ:rg 02/07/19 COMMENT A. The results of immunohistochemistry for Helicobacter pylori will be reported separately ([id number]). B. Alcian blue/PAS stain with matched control is used in the evaluation of the specimen. MICROSCOPIC DESCRIPTION Slides are reviewed. A. The specimen shows fragments of gastric mucosa with chronic inflammatory cell infiltrates in the lamina propria consisting of lymphocytes and plasma cells, consistent with mild chronic gastritis. GROSS DESCRIPTION A - Received in fixative is one container labeled with the patient's name and designated antrum biopsy. The specimen consists of two irregular fragments of light rod soft tissue that in aggregate measure 0.6 x 0.5 x 0.2 cm. The specimen is totally submitted in one cassette. B - Received in fixative is one container labeled with the patient's name and designated Schatzki ring biopsy. The specimen consists of one irregular fragment of light rod soft tissue that measures 0.6 x 0.3 x 0.1 cm. The specimen is totally submitted in one cassette. / ROSEANNE:janice 02/04/19 TC:3 CPT: 61927 x2, 11548
[2019-02-04 10:46] VITALS: BP 137/48; BP 90/39; PULSE 59; RESP 16; TEMP 36.3; O2SAT 92
--- NOTE | 2019-02-04 10:48 | OP.ENDO_ITS ---
02/04/2019 Donny Herndon [address] [place] [address] Re : Upper GI endoscopy procedure for Catherine Cabral Dear Dr. Herndon This procedure was performed on Monday, February 04, 2019. My impressions and recommendations are as follows: Impressions : Recommendations : - Discharge patient to home. - Resume previous diet. - Continue present medications. - Use Prilosec (omeprazole) 40 mg PO daily. - Return to my office in 2 weeks. My findings are described in the full procedure note, which is enclosed. If I can be of further assistance, please feel free to contact me at Doctor phone number(s): Work: . Sincerely, Rubén Hansen MD 02/04/2019 10:48:06 AM This report has been signed electronically.
[2019-02-04 10:50] VITALS: BP 116/50; BP 137/48; PULSE 54; RESP 16; O2SAT 95
[2019-02-04 10:55] VITALS: BP 119/47; BP 137/48; PULSE 52; RESP 16; O2SAT 95
[2019-02-04 11:12] VITALS: BP 117/42; BP 137/48; PULSE 56; RESP 18; TEMP 36.6; O2SAT 95
[2019-02-04 11:49] VITALS: BP 137/48
== END 2019-02-04 11:52 | disposition home or self-care (01) ==
LOC: EN 08:49 → AC 09:09
PROVIDERS: Family Provider Family Medicine; PCP Family Medicine; Referring Provider Family Medicine; Visit Provider Surgery
PROC: 0DJ08ZZ Inspection of Upper Intestinal Tract, Via Natural or Artificial Opening Endoscopic (ICD-10-PCS; CPT 43235; principal; 2019-02-04 09:55)
DX: K29.50 Unspecified chronic gastritis without bleeding (principal); R13.10 Dysphagia, unspecified; T18.108A Unspecified foreign body in esophagus causing other injury, initial encounter; I47.1 Supraventricular tachycardia; K21.9 Gastro-esophageal reflux disease without esophagitis; K44.9 Diaphragmatic hernia without obstruction or gangrene; I65.22 Occlusion and stenosis of left carotid artery; E78.5 Hyperlipidemia, unspecified; N18.3 Chronic kidney disease, stage 3 (moderate); I12.9 Hypertensive chronic kidney disease with stage 1 through stage 4 chronic kidney disease, or unspecified chronic kidney disease; Z90.49 Acquired absence of other specified parts of digestive tract; Z79.82 Long term (current) use of aspirin; Z87.891 Personal history of nicotine dependence; Z79.899 Other long term (current) drug therapy
CPT/HCPCS: 43239; 43249; 88305; 88313; 88342; J7120; J2405

== ENCOUNTER → 2019-02-15 09:42 | Outpatient (CLI) | payer MEDICARE, OTHER, SELFPAY ==
[2019-02-02 10:05] VITALS: BMI 36.2
[2019-02-04 09:24] VITALS: BMI 36.3
--- NOTE | 2019-02-15 09:43 | CDU_ITS ---
Reason For Study: carotid stenosis Rt. Velocities/BP Lt. Velocities/BP Prox CCA 104.7/12.1 cm/sec. Prox CCA 113.4/15.1 cm/sec. Mid CCA 94.3/13.4 cm/sec. Mid CCA 108.4/18.8 cm/sec. Dist CCA 83.9/17.3 cm/sec. Dist CCA 103.5/20.0 cm/sec. Prox ICA 100.8/18.6 cm/sec. Prox ICA 91.3/18.8 cm/sec. Mid ICA 93.0/21.3 cm/sec. Mid ICA 119.3/27.9 cm/sec. Dist ICA 123.1/10.8 cm/sec. Dist ICA 127.9/20.6 cm/sec. Rt. ICA/CCA = 1.3. Lt. ICA/CCA = 1.2. Prox ECA 117.8/10.8 cm/sec. Prox ECA 143/20.6 cm/sec. Rt. Vert. 28.9/6.9 cm/sec. Lt. Vert. 93.7/17.0 cm/sec. Right Extracranial There is homogeneous, smooth atherosclerotic plaque noted in the right common carotid artery. There is heterogeneous, irregular atherosclerotic plaque noted in the right internal carotid artery. The right internal carotid artery is very tortuous. There is intimal thickening but no significant atherosclerotic plaque noted in the right external carotid artery. Abnormal waveform morphology noted in the right vertebral artery. Left Extracranial There is homogeneous, smooth atherosclerotic plaque noted in the left common carotid artery. There is heterogeneous, irregular atherosclerotic plaque noted in the left internal carotid artery. The left internal carotid artery is very tortuous. There is intimal thickening but no significant atherosclerotic plaque noted in the left external carotid artery. Antegrade flow is noted in the left vertebral artery. Procedure Carotid Duplex [id number]. The exam was diagnostic. Exam performed in department. Interpretation Summary Mild irregular plague at the proximal right internal carotid artery with <50% stenosis <50% stenosis right external carotid Mild irregular plague at the proximal left internal carotid with 50-69% stenosis, far closer to 50%. <50% stenosis left external carotid Patent, antegrade vertebrals bilaterally. Velocity on the left slightly elevated. No significant change since 07/27/17 Ordering Physician: Rubén Hansen Performed By: Calos Stokes RVT
== END ==
PROVIDERS: Family Provider Family Medicine; PCP Family Medicine; Referring Provider Surgery; Visit Provider Surgery
DX: I65.22 Occlusion and stenosis of left carotid artery (principal)
CPT/HCPCS: 93880

== ENCOUNTER → 2019-04-18 10:27 | Outpatient (CLI) | payer MEDICARE, OTHER, SELFPAY ==
[2019-04-18 12:58] LABS: Hemoglobin A1c 5.6 % (4.2-6.3); Vitamin D,25 Hydroxy 59.8 ng/mL (29.95-100.01)
[2019-04-18 13:11] LABS: ALB/GLOB Ratio 1.1 RATIO (0.9-2.4); AST(SGOT) 21 U/L (15-37); Alanine Aminotransfer ALT/SGPT 34 U/L (13-56); Albumin, Serum 3.9 g/dL (3.2-5.0); Alkaline Phosphatase 114 U/L (45-117); Anion Gap 8 (5-15); BUN 26 mg/dL (7-18); BUN/Creat Ratio 22.6 RATIO (10-20); Calcium,Total 9.3 mg/dL (8.5-10.1); Chloride 101 mmol/L (98-107); Creatinine, Serum 1.15 mg/dL (0.55-1.02); EST Glomerular Filtration Rate 49 mL/min (>60); Est Glom Filt Rate - Afr Amer 60 mL/min (>60); Globulin 3.7 g/dL (2.2-4.2); Glucose 101 mg/dL (74-106); Phosphorus 3.1 mg/dL (2.5-4.9); Potassium 3.5 mmol/L (3.5-5.1); Protein, Total 7.6 g/dL (6.4-8.2); Sodium Level 136 mmol/L (136-145)
== END ==
PROVIDERS: Family Provider Family Medicine; PCP Family Medicine; Visit Provider Family Medicine
DX: I10 Essential (primary) hypertension (principal); E55.9 Vitamin D deficiency, unspecified; R73.02 Impaired glucose tolerance (oral); M85.80 Other specified disorders of bone density and structure, unspecified site
CPT/HCPCS: 36415; 80053; 82306; 83036; 84100

== ENCOUNTER → 2019-10-06 09:21 | Outpatient (CLI) | payer MEDICARE, OTHER, SELFPAY ==
[2019-06-24 11:01] VITALS: BMI 38.0
--- NOTE | 2019-10-06 09:27 | BI_ITS ---
MAMMOGRAPHY - BILATERAL DIAGNOSTIC REASON FOR EXAM: Female, 74 years old. BILAT DX FOR RT DISCHARGE - NO FA M HX - NO PREV AMITA G''S - DISCHARGE 10/01/19 RED-BROWN IN COLOR PERTINENT HISTORY: Right nipple discharge TECHNIQUE: Digital examination. Mediolateral oblique (MLO) and craniocaudad (CC) views of both breasts were obtained, along with 3-D tomosynthesis. CAD: CAD was performed on this study. COMPARISON: 11/09/2018 FINDINGS: Breast Composition: The breasts are heterogeneously dense, which may obscure small masses. Multiple stable appearing subcentimeter nodules in both breasts with partially calcified likely fibroadenoma in the lower inner right breast. No suspicious mammographic findings. However, because the patient complains of right nipple discharge, further evaluation of the right breast with ultrasound is recommended. BI/DIAG MAMM W/CAD, BILAT IMPRESSION: Further ultrasonographic evaluation recommended, as described above. Recall Side: Right Breast ASSESSMENT CATEGORY: BIRADS Category 0: Incomplete. Need additional imaging evaluation. A letter regarding these results will be sent to the patient by the facility within 30 days. FOLLOW UP RECOMMENDATION: Ultrasound Recommended. (I) Approximately 10% of breast cancers are not detected by mammography. A normal mammogram should not delay biopsy of a clinically suspicious abnormality. Electronically Signed: Chuck Livingston MD at 10:43 EDT , Service support ,
--- NOTE | 2019-10-06 09:27 | US_ITS ---
STUDY: ULTRASOUND BREAST - RIGHT REASON FOR EXAM: Female, 74 years old. Nipple discharge TECHNIQUE: Axial and longitudinal images of the RIGHT breast were performed with a high resolution ultrasound transducer. # OF IMAGES: 51 COMPARISON: None. FINDINGS: RIGHT Breast: Sonographic evaluation of the upper outer and inner quadrants of the right breast shows normal dense fibroglandular tissue. There are a few scattered dilated ducts but no sonographic evidence of papilloma or inflammatory process. No suspicious shadowing solid lesion or architectural distortion. US/Breast Limited Unilateral IMPRESSION: No suspicious sonographic findings, nonspecifically dilated retroareolar ducts noted. ASSESSMENT CATEGORY: BIRADS Category 2: Benign. A letter regarding these results will be sent to the patient by the facility within 30 days. Electronically Signed: Chuck Livingston MD at 11:20 EDT , Service support ,
== END ==
PROVIDERS: PCP Family Medicine; Referring Provider Family Medicine; Visit Provider Family Medicine
DX: N64.52 Nipple discharge (principal)
CPT/HCPCS: 76642; 77062; 77066; G0279

== ENCOUNTER → 2019-10-21 11:01 | Outpatient (CLI) | payer MEDICARE, OTHER, SELFPAY ==
[2019-10-13 14:19] VITALS: BMI 36.3
[2019-10-21 12:58] LABS: Absolute Lymphocyte Count 1.74 X10^3/uL (0.83-4.51); Absolute Neutrophil Count 6.1 X10^3/uL (2.0-7.7); Basophil# 0.04 X10^3/uL; Basophil% 0.5 % (0-1); Eosinophil# 0.22 X10^3/uL; Eosinophils% 2.5 % (0-5); Hematocrit 43.1 % (37-47); Hemoglobin 13.8 g/dL (12.0-15.0); Lymphocyte # 1.74 X10^3/ul (4.0); Lymphocyte % 20.1 % (19-41); Mean Corpuscular Hgb 30.5 pg (27.0-32.0); Mean Corpuscular Volume 95.1 fL (81-99); Mean Platelet Vol. 9.7 fl (6.2-12.0); Monocyte# 0.47 X10^3/uL; Monocyte% 5.4 % (0-10); NRBC Flagged by Analyzer 0 % (0-5); Neutrophil # 6.14 X10^3/uL (2.7-7.7); Neutrophil % 71.2 % (47-70); Platelet Count 278 K/mm3 (150-450); RBC Distribution Width CV 14.4 % (11.6-14.6); RBC Distribution Width SD 49.1 fl (35.1-43.9); Red Blood Count 4.53 M/mm3 (4.2-5.4); White Blood Count 8.6 K/mm3 (4.4-11.0)
[2019-10-21 13:00] LABS: Vitamin D,25 Hydroxy 73.2 ng/mL
[2019-10-21 13:01] LABS: AST(SGOT) 18 U/L (15-37); Alanine Aminotransfer ALT/SGPT 26 U/L (13-56); Albumin, Serum 3.5 g/dL (3.2-5.0); Alkaline Phosphatase 105 U/L (45-117); Anion Gap 6 (5-15); BUN 21 mg/dL (7-18); BUN/Creat Ratio 18.3 RATIO (10-20); Calcium,Total 9.2 mg/dL (8.5-10.1); Chloride 106 mmol/L (98-107); Cholesterol 143 mg/dL (200); Creatinine, Serum 1.15 mg/dL (0.55-1.02); EST Glomerular Filtration Rate 49 mL/min (>60); Est Glom Filt Rate - Afr Amer 59 mL/min (>60); Globulin 3.4 g/dL (2.2-4.2); Glucose 97 mg/dL (74-106); High Density Lipoprotein 52 mg/dL; Potassium 3.9 mmol/L (3.5-5.1); Protein, Total 6.9 g/dL (6.4-8.2); Sodium Level 139 mmol/L (136-145); Triglycerides 146 mg/dL; Very Low Density Lipoprotein 29 mg/dL (5-40)
[2019-10-21 13:38] LABS: Hemoglobin A1c 5.8 % (3.8-5.6)
== END ==
PROVIDERS: PCP Family Medicine; Referring Provider Family Medicine; Visit Provider Family Medicine
DX: E78.5 Hyperlipidemia, unspecified (principal); I10 Essential (primary) hypertension; R73.02 Impaired glucose tolerance (oral); E83.42 Hypomagnesemia; E55.9 Vitamin D deficiency, unspecified
CPT/HCPCS: 36415; 80053; 80061; 82306; 83036; 83735; 85025

== ENCOUNTER → 2019-11-16 09:57 | Outpatient (CLI) | payer MEDICARE, OTHER, SELFPAY ==
[2019-10-13 14:19] VITALS: BMI 36.3
[2019-11-16 12:17] LABS: Albumin, Serum 3.6 g/dL (3.2-5.0); BUN 22 mg/dL (7-18); BUN/Creat Ratio 21.4 RATIO (10-20); Calcium,Total 9.3 mg/dL (8.5-10.1); Chloride 108 mmol/L (98-107); Creatinine, Serum 1.03 mg/dL (0.55-1.02); EST Glomerular Filtration Rate 56 mL/min (>60); Est Glom Filt Rate - Afr Amer 67 mL/min (>60); Glucose 102 mg/dL (74-106); Phosphorus 3.3 mg/dL (2.5-4.9); Potassium 3.7 mmol/L (3.5-5.1); Sodium Level 141 mmol/L (136-145)
[2019-11-16 12:22] LABS: AST(SGOT) 16 U/L (15-37); Alanine Aminotransfer ALT/SGPT 27 U/L (13-56); Albumin, Serum 3.6 g/dL (3.2-5.0); Alkaline Phosphatase 96 U/L (45-117); Bilirubin, Direct 0.17 mg/dL (0.00-0.30); Cholesterol 133 mg/dL (200); Globulin 3.6 g/dL (2.2-4.2); High Density Lipoprotein 53 mg/dL; Protein, Total 7.2 g/dL (6.4-8.2); Triglycerides 147 mg/dL; Very Low Density Lipoprotein 29 mg/dL (5-40)
[2019-11-16 12:22] LABS: Protein, Urine (Random) 10.6 mg/dL (<11.9); Protein:Creat Ratio 149 mg/g CRE (0-200)
== END ==
PROVIDERS: Internal Medicine Nephrology; PCP Family Medicine; Referring Provider Family Medicine; Visit Provider Internal Medicine Cardiovascular Disease
DX: N18.3 Chronic kidney disease, stage 3 (moderate) (principal); E78.00 Pure hypercholesterolemia, unspecified
CPT/HCPCS: 36415; 80061; 80069; 80076; 82570; 84156

== ENCOUNTER → 2020-02-20 09:52 | Outpatient (CLI) | payer MEDICARE, OTHER, SELFPAY ==
[2019-12-27 11:12] VITALS: BMI 38.2
--- NOTE | 2020-02-20 09:53 | CDU_ITS ---
Reason For Study: CAROTID STENOSIS Rt. Velocities/BP Lt. Velocities/BP Prox CCA 116.4/20.0 cm/sec. Prox CCA 100.3/21.7 cm/sec. Mid CCA 119.1/18.6 cm/sec. Mid CCA 100.3/16.3 cm/sec. Dist CCA 95.6/14.7 cm/sec. Dist CCA 131.3/19.9 cm/sec. Prox ICA 121.0/31.6 cm/sec. Prox ICA 123.3/28.5 cm/sec. Mid ICA 112.4/24.8 cm/sec. Mid ICA 103.3/24.8 cm/sec. Dist ICA 183.0/48.0 cm/sec. Dist ICA 257.2/44.8 cm/sec. Rt. ICA/CCA = 183.0/119.1=1.5. Lt. ICA/CCA = 257.2/131.3=1.9. Prox ECA 143.0/13.3 cm/sec. Prox ECA 256.3/10.7 cm/sec. Rt. Vert. 23.3/11.2 cm/sec. Lt. Vert. 84.2/21.5 cm/sec. Right Extracranial There is homogeneous, smooth atherosclerotic plaque noted in the right common carotid artery. There is heterogeneous, irregular atherosclerotic plaque noted in the right internal carotid artery. There is homogeneous, smooth atherosclerotic plaque noted in the right external carotid artery. The right external carotid artery is tortuous. Abnormal waveform morphology noted in the right vertebral artery. There is heterogeneous, irregular atherosclerotic plaque noted in the right bulb. Left Extracranial There is homogeneous, smooth atherosclerotic plaque noted in the left common carotid artery. There is heterogeneous, irregular atherosclerotic plaque noted in the left internal carotid artery. The tortuous nature of the left internal carotid artery may result in flow velocities overestimating the degree of stenosis. There is homogeneous, smooth atherosclerotic plaque noted in the left external carotid artery. Antegrade flow is noted in the left vertebral artery. There is homogeneous, smooth atherosclerotic plaque noted in the left bulb. Procedure Carotid Duplex 53665. The exam was diagnostic. The study was technically difficult. Exam performed in department. Interpretation Summary Irregular calcific plaque with shadowing at the proximal right internal carotid with 50 to 69% stenosis. <50% stenosis right external carotid Irregular calcific plaque with shadowing at the proximal left internal and external carotid arteries. Less than 50% stenosis of the proximal left internal carotid. Velocities are elevated in the distal left internal carotid at 257.2 cm/s peak systolic flow however this is an area of significant tortuosity and likely is artificially elevated. >50% stenosis left external carotid Prestenotic flow right vertebral. Patent antegrade flow left vertebral. Possible progression of disease bilaterally compared to February 15, 2019. Challenging examination. Ordering Physician: Rubén Hansen Referring Physician: Donny Herndon Performed By: Syl Mora, JACINTO, RVT
== END ==
PROVIDERS: PCP Family Medicine; Referring Provider Surgery; Visit Provider Surgery
DX: I65.23 Occlusion and stenosis of bilateral carotid arteries (principal)
CPT/HCPCS: 93880

== ENCOUNTER → 2020-05-07 10:41 | Outpatient (CLI) | payer MEDICARE, OTHER, SELFPAY ==
[2020-03-13 14:28] VITALS: BMI 38.2
[2020-05-07 12:44] LABS: Absolute Lymphocyte Count 1.75 X10^3/uL (0.83-4.51); Absolute Neutrophil Count 5.7 X10^3/uL (2.0-7.7); Basophil# 0.04 X10^3/uL; Basophil% 0.5 % (0-1); Eosinophil# 0.66 X10^3/uL; Eosinophils% 7.7 % (0-5); Hematocrit 45.8 % (37-47); Hemoglobin 14.9 g/dL (12.0-15.0); Lymphocyte # 1.75 X10^3/ul (4.0); Lymphocyte % 20.4 % (19-41); Mean Corp Hgb Conc 32.5 g/dL (32-36); Mean Corpuscular Volume 92.2 fL (81-99); Mean Platelet Vol. 10.2 fl (6.2-12.0); Monocyte# 0.41 X10^3/uL; Monocyte% 4.8 % (0-10); NRBC Flagged by Analyzer 0 % (0-5); Neutrophil % 66.4 % (47-70); Platelet Count 285 K/mm3 (150-450); RBC Distribution Width CV 14.1 % (11.6-14.6); RBC Distribution Width SD 47.7 fl (35.1-43.9); Red Blood Count 4.97 M/mm3 (4.2-5.4); White Blood Count 8.6 K/mm3 (4.4-11.0)
[2020-05-07 12:52] LABS: Vitamin D,25 Hydroxy 56.8 ng/mL
[2020-05-07 12:53] LABS: Hemoglobin A1c 5.6 % (3.8-5.6)
[2020-05-07 12:55] LABS: AST(SGOT) 14 U/L (15-37); Alanine Aminotransfer ALT/SGPT 25 U/L (13-56); Albumin, Serum 3.5 g/dL (3.2-5.0); Alkaline Phosphatase 120 U/L (45-117); Anion Gap 9 (5-15); BUN 22 mg/dL (7-18); BUN/Creat Ratio 18.2 RATIO (10-20); Calcium,Total 8.9 mg/dL (8.5-10.1); Chloride 105 mmol/L (98-107); Cholesterol 126 mg/dL (200); Creatinine, Serum 1.21 mg/dL (0.55-1.02); EST Glomerular Filtration Rate 46 mL/min (>60); Est Glom Filt Rate - Afr Amer 56 mL/min (>60); Globulin 3.5 g/dL (2.2-4.2); Glucose 120 mg/dL (74-106); High Density Lipoprotein 55 mg/dL; Potassium 3.6 mmol/L (3.5-5.1); Sodium Level 140 mmol/L (136-145); Triglycerides 167 mg/dL; Very Low Density Lipoprotein 33 mg/dL (5-40)
[2020-05-07 13:52] LABS: Protein, Urine (Random) 11.8 mg/dL (<11.9); Protein:Creat Ratio 109 mg/g CRE (0-200)
== END ==
PROVIDERS: PCP Family Medicine; Visit Provider Family Medicine
DX: N18.30 Chronic kidney disease, stage 3 unspecified (principal); E78.5 Hyperlipidemia, unspecified; R73.02 Impaired glucose tolerance (oral); E83.42 Hypomagnesemia
CPT/HCPCS: 36415; 80053; 80061; 82306; 82570; 83036; 83735; 84156; 85025

== ENCOUNTER 2020-06-19 08:23 | Outpatient (RCR) | payer MEDICARE, OTHER, SELFPAY ==
[2020-03-13 14:28] VITALS: BMI 38.2
[2020-06-19] MEDS: COVID-19 VACC, MRNA(PFIZER)/PF 30 MCG/0.3 ML SYRINGE IM (10:51)
[2020-07-10] MEDS: COVID-19 VACC, MRNA(PFIZER)/PF 30 MCG/0.3 ML SYRINGE IM (10:39)
== END 2020-09-18 23:59 ==
LOC: IMMUN 08:23
PROVIDERS: PCP Family Medicine; Visit Provider Family Medicine
DX: Z23 Encounter for immunization (principal)
CPT/HCPCS: 0001A; 0002A; 91300

== ENCOUNTER 2020-06-26 06:23 | Day surgery (SDC) | payer MEDICARE, OTHER, SELFPAY ==
[2020-03-13 14:28] VITALS: BMI 38.2
[2020-06-26] VITALS (7 sets, daily range): BP systolic 106–144; BP diastolic 43–55; PULSE 60–65; RESP 16; TEMP 37.1–37.6; O2SAT 92–97; BMI 36.8
--- NOTE | 2020-06-26 | EGD_PTH ---
PATIENT: KEERTHI CONDE LOC: EN U#:[id number] AGE/SX: 75/F ROOM: RE06/26/[address]: Dr. Rubén Hansen MD : 1945 BED: DIS: 06/26/2020 SPEC #: [id number] RECD: 06/26/20 11:40 STATUS: ARMANDO REBrigida #: [id number] LEBRON: 06/26/20 00:[address]: Rubén Hansen DEPT: SURGICAL PATHOLOGY RECD BY: Isael Graf ENTERED: 06/26/20 11:40 SP TYPE: EGD BIOPSY OT DR: Dr. Donny Herndon MD Tissues: A - Duodenum, NOS B - Gastric mucous membrane C - Gastric mucous membrane D - Esophageal mucous membrane Procedures: Special Stain Group II Surgery Specimen Level IV Alcian Blue/PAS (control) HEADER OPERATION: EGD ([facility] [place]) PRE-OP DIAGNOSIS: Hiatal hernia with GERD and esophagitis TISSUE SUBMITTED: A - Biopsy of duodenum, B - Biopsy of antrum for H. pylori and path, C - Biopsy of GE junction, D - Mid esophagus biopsy MICROSCOPIC DIAGNOSIS A. Duodenum, biopsy: No pathologic change. B. Gastric antrum, biopsy: Mild chronic gastritis. C. Gastroesophageal junction, biopsy: Chronic inflammation. Focal changes of reflux. No evidence of goblet cell metaplasia. D. Mid esophagus, biopsy: Fragment of benign squamous mucosa. No evidence of inflammation. AM:janice 06/27/2020 COMMENT B. The results of immunohistochemistry for Helicobacter pylori will be reported separately ([id number]). C. Alcian blue/PAS stain with matched control supports the above diagnosis. MICROSCOPIC DESCRIPTION Slides are reviewed. GROSS DESCRIPTION A - Received in fixative is one container labeled with the patient's name and designated duodenum biopsy. The specimen consists of one irregular fragment of light rod soft tissue that measures 0.3 x 0.3 x 0.1 cm. The specimen is totally submitted in one cassette. B - Received in fixative is one container labeled with the patient's name and designated gastric antrum biopsy. The specimen consists of one irregular fragment of light rod soft tissue that measures 0.3 x 0.3 x 0.1 cm. The specimen is totally submitted in one cassette. C - Received in fixative is one container labeled with the patient's name and designated GE junction biopsy. The specimen consists of multiple irregular fragments of light rod soft tissue that in aggregate measure 1 x 0.2 x 0.1 cm. The specimen is totally submitted in one cassette. D - Received in fixative is one container labeled with the patient's name and designated mid esophagus biopsy. The specimen consists of one irregular fragment of light rod soft tissue that measures 0.6 x 0.2 x <0.1 cm. The specimen is totally submitted in one cassette. / AM:janice 06/26/20 TC:3 CPT: 57434 x4, 42541
[2020-06-26] MEDS: Lactated Ringers 1,000 ML 100 ML IV (06:51)
--- NOTE | 2020-06-26 06:59 | PCM.HP.STD ---
Problem List (1) Hiatal hernia with GERD and esophagitis Status: Acute History of Present Illness Date of Admission: 06/26/20 The patient is a 75 year old F who presents for evaluation of medication dependent gastroesophageal reflux disease and hiatal hernia. The patient recently has been seen for extracranial carotid artery occlusive disease. Fortunately that remains asymptomatic and stable. She does require famotidine for her reflux. She intermittently has breakthrough. Past Medical History Past Medical History (Chronic Problems): Chronic Problems (Last Reviewed 03/13/20 @ 14:28 by Sandy Israel) Essential hypertension (Chronic) Left-sided carotid artery disease (Chronic) Paroxysmal SVT (supraventricular tachycardia) (Chronic) Hyperlipidemia (Chronic) Medical History: Medical History (Last Reviewed 03/13/20 @ 14:28 by Sandy Israel) Bilateral carotid artery stenosis without cerebral infarction (Acute) I65.23 Essential hypertension (Chronic) I10 Hiatal hernia with GERD and esophagitis (Acute) K44.9, K21.0 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 (Acute) T18.108A Hiatal hernia with gastroesophageal reflux (Acute) K21.9, K44.9 Dizziness (Resolved) R42 Paroxysmal SVT (supraventricular tachycardia) (Chronic) I47.1 Hyperlipidemia (Chronic) E78.5 Obesity E66.9 CKD (chronic kidney disease) stage 3, GFR 30-59 ml/min N18.3 Allergies No Known Allergies Allergy (Verified 06/26/20 06:27) Home Medications: Ambulatory Orders Medication Instructions Recorded magnesium oxide 400 mg PO QDAY cap 04/20/17 triamterene 37.5 1 cap PO QDAY 04/20/17 mg-hydrochlorothiazide 25 mg capsule aspirin 81 mg tablet,delayed 81 mg PO QDAY 11/25/17 release coenzyme Q10 100 mg capsule 100 mg PO QDAY #1 cap 11/25/17 turmeric 400 mg capsule 2,250 mg PO BID cap 06/21/18 rosuvastatin 10 mg tablet 20 mg PO QDAY tab 02/02/19 Calcium Carbonate/Vitamin D3 1 ea PO DAILY 02/03/19 [Calcium 600 + Vit D 400 Tablet] Cholecalciferol (Vitamin D3) 5,000 unit PO DAILY 02/03/19 [Vitamin D3] cyanocobalamin (vitamin B-12) 5,000 mcg PO DAILY 06/24/19 5,000 mcg capsule estradiol 1 g VAGINAL QWEEK 06/24/19 famotidine 20 mg tablet See Rx Instructions .ROUTE 06/27/19 .COMPLEX #60 tab digoxin 125 mcg (0.125 mg) tablet 125 mcg PO QDAY #90 tab 12/12/19 flecainide 50 mg tablet 50 mg PO Q12H #180 tab 01/13/20 metoprolol succinate 100 mg 100 mg PO QDAY #90 tab 06/06/20 tablet,extended release 24 hr potassium chloride 10 mEq 10 meq PO .every other day #45 tab 06/06/20 tablet,extended release(part/cryst) Surgical History: Surgical History (Last Reviewed 03/13/20 @ 14:28 by Sandy Israel) History of cholecystectomy Z98.890, Z90.49 Hx of appendectomy Z98.890, Z90.49 Smoking Status: Former smoker Review of Systems Constitutional: Denies: Fever Cardiovascular: Denies: Chest Pain Respiratory: Denies: Shortness of Breath Gastrointestinal: Denies: Abdominal Pain, Hematochezia, Melena Endocrine: Denies: Change in Body Habitus VTE Information - Inpt Only VTE Present on Admission: No - Physical Exam Vitals/I&O's: Vital Signs Temp Pulse Resp BP Pulse Ox 98.7 F 63 16 144/52 H 97 06/26/20 06:47 06/26/20 06:47 06/26/20 06:47 06/26/20 06:47 06/26/20 06:47 Oxygen Delivery Method Room Air Weight: 221 lb 9.033 oz Body Mass Index (BMI) 36.8 General: Alert, Oriented x3, Cooperative, No apparent distress HEENT: Atraumatic Oral: Moist Mucosa Lungs: Clear to auscultation, Normal air movement Cardiovascular: Regular rate, Regular Rhythm Abdomen: Bowel Sounds Present, Soft, Non Tender Extremities: No Calf Tenderness Psych/Mental Status: Normal Affect Microbiology Past 72 Hours 06/25/20 10:00 Interface Orders SARS-CoV-2 Antigen (Rapid) - Final Current Medications Lactated Ringer's () 1,000 mls @ 100 mls/hr IV .Q10H DANIEL Last Admin: 06/26/20 06:51 Dose: 100 mls/hr Documented by: Assessment/Plan All Active Problems (Last Reviewed 03/13/20 @ 14:28 by Sandy Israel) Bilateral carotid artery stenosis without cerebral infarction (Acute) Hiatal hernia with GERD and esophagitis (Acute) 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 (Acute) Hiatal hernia with gastroesophageal reflux (Acute) Dizziness (Resolved) Plan to proceed with a esophagogastroduodenoscopy with possible biopsy or polypectomy as indicated. The patient is aware of the technique benefits risk complications alternatives. We will proceed as noted. The patient presents via open access. Rubén Hansen M.D., F.A.C.S.
--- NOTE | 2020-06-26 07:30 | IMM_PTH ---
PATIENT: KEERTHI CONDE LOC: EN U#:[id number] AGE/SX: 75/F ROOM: RE06/26/[address]: Dr. Rubén Hansen MD : 1945 BED: DIS: 06/26/2020 SPEC #: [id number] RECD: 06/26/20 12:44 STATUS: ARMANDO REQ #: [id number] LEBRON: 06/26/20 07:[address]: Rubén Hansen DEPT: IMMUNOHISTOCHEMISTRY RECD BY: Emely Wilde ENTERED: 06/26/20 12:44 SP TYPE: IMMUNO OTHR DR: Dr. Donny Herndon MD Tissues: B - Stomach, NOS Procedures: H Pylori (initial) PHYSICIAN & INSTITUTION [facility] [id number] SPECIMEN INFORMATION: Tissue Source: B - Antrum Clinical Info: Hiatal hernia, GERD, esophagitis Specimen Number: [id number] CPT code: 29960 METHODOLOGY: Deparaffinized sections of prefer/formalin-fixed tissue or PAP/DQ stained slides are incubated with monoclonal/polyclonal antibodies/oligonucleotide probes. Localization is made via biotin free immunoperoxidase method. Appropriate controls are performed and reacted as expected. Results on target cell population are indicated in the following table: RESULTS: ANTIBODY / CLONE RESULT Block B H Pylori (polyclonal) negative These tests were developed and their performance characteristics determined by [facility]. They may not have been cleared or approved by the U.S. Food and Drug Administration. The FDA has determined that such clearance or approval is not necessary. INTERPRETATION: B. Antrum, biopsy: Negative for Helicobacter pylori organisms. AM:janice 06/27/2020
--- NOTE | 2020-06-26 07:50 | OP.CCLET_ITS ---
06/26/2020 Donny Herndon [address] [place] [address] Re : Upper GI endoscopy procedure for Catherine Cabral Dear Dr. Herndon This procedure was performed on Friday, June 26, 2020. My impressions and recommendations are as follows: Impressions : - LA Grade A reflux esophagitis. Biopsied. - Mild Schatzki ring. - Medium-sized hiatal hernia. - Erythematous mucosa in the antrum. Biopsied. - Normal examined duodenum. Biopsied. - Normal middle third of esophagus. Biopsied. Recommendations : - Discharge patient to home. - Resume previous diet. - Continue present medications. - Telephone my office for pathology results in 1 week. Schatzki ring non-obstructing. Hiatal hernia. Reflux. Ongoing medical treatment My findings are described in the full procedure note, which is enclosed. If I can be of further assistance, please feel free to contact me at Doctor phone number(s): Work: . Sincerely, Rubén Hansen MD 06/26/2020 7:49:46 AM This report has been signed electronically.
--- NOTE | 2020-06-26 07:50 | OP.EGD_ITS ---
Patient Name: Catherine Cabral Procedure Date: 06/26/2020 7:29 AM Date of : 1945 Age: 75 Procedure: Upper GI endoscopy Indications: Esophageal reflux Providers: Rubén Hansen MD Referring MD: Donny Herndon Medicines: See the Anesthesia note for documentation of the administered medications Complications: No immediate complications. Procedure: Pre-Anesthesia Assessment: - Prior to the procedure, a History and Physical was performed, and patient medications and allergies were reviewed. The patient's tolerance of previous anesthesia was also reviewed. The risks and benefits of the procedure and the sedation options and risks were discussed with the patient. All questions were answered, and informed consent was obtained. Prior Anticoagulants: The patient has taken no previous anticoagulant or antiplatelet agents. ASA Grade Assessment: II - A patient with mild systemic disease. After reviewing the risks and benefits, the patient was deemed in satisfactory condition to undergo the procedure. After obtaining informed consent, the endoscope was passed under direct vision. Throughout the procedure, the patient's blood pressure, pulse, and oxygen saturations were monitored continuously. The gastroscope was introduced through the mouth, and advanced to the second part of duodenum. The upper GI endoscopy was accomplished without difficulty. The patient tolerated the procedure well. Scope In: 7:38:08 AM Scope Out: 7:44:23 AM Total Procedure Duration Time 0 hours 6 minutes 15 seconds Findings: LA Grade A (one or more mucosal breaks less than 5 mm, not extending between tops of 2 mucosal folds) esophagitis with no bleeding was found 38 cm from the incisors. Biopsies were taken with a cold forceps for histology. A mild Schatzki ring was found at the gastroesophageal junction. A medium-sized hiatal hernia was present. Diffuse mildly erythematous mucosa without bleeding was found in the gastric antrum. Biopsies were taken with a cold forceps for histology. The examined duodenum was normal. Biopsies were taken with a cold forceps for histology. The middle third of the esophagus was normal. Biopsies were taken with a cold forceps for histology. Impression: - LA Grade A reflux esophagitis. Biopsied. - Mild Schatzki ring. - Medium-sized hiatal hernia. - Erythematous mucosa in the antrum. Biopsied. - Normal examined duodenum. Biopsied. - Normal middle third of esophagus. Biopsied. Recommendation: - Discharge patient to home. - Resume previous diet. - Continue present medications. - Telephone my office for pathology results in 1 week. Schatzki ring non-obstructing. Hiatal hernia. Reflux. Ongoing medical treatment Procedure Code(s): --- Professional --- 96805, Esophagogastroduodenoscopy, flexible, transoral; with biopsy, single or multiple Diagnosis Code(s): --- Professional --- K21.0, Gastro-esophageal reflux disease with esophagitis K22.2, Esophageal obstruction K44.9, Diaphragmatic hernia without obstruction or gangrene K31.89, Other diseases of stomach and duodenum CPT copyright 2017 [employer]. All rights reserved. The codes documented in this report are preliminary and upon mechanical project manager review may be revised to meet current compliance requirements. Rubén Hansen MD 06/26/2020 7:49:46 AM This report has been signed electronically. Number of Addenda: 0 Note Initiated On: 06/26/2020 7:29 AM
== END 2020-06-26 08:26 | disposition home or self-care (01) ==
LOC: EN 06:24 → AC 06:24
PROVIDERS: PCP Family Medicine; Referring Provider Family Medicine; Visit Provider Surgery
PROC: 0DJ08ZZ Inspection of Upper Intestinal Tract, Via Natural or Artificial Opening Endoscopic (ICD-10-PCS; CPT 43235; principal; 2020-06-26 07:25)
DX: K21.00 Gastro-esophageal reflux disease with esophagitis, without bleeding (principal); K22.2 Esophageal obstruction; K44.9 Diaphragmatic hernia without obstruction or gangrene; K31.89 Other diseases of stomach and duodenum; K29.50 Unspecified chronic gastritis without bleeding; E78.5 Hyperlipidemia, unspecified; I12.9 Hypertensive chronic kidney disease with stage 1 through stage 4 chronic kidney disease, or unspecified chronic kidney disease; N18.30 Chronic kidney disease, stage 3 unspecified; E66.9 Obesity, unspecified; I65.23 Occlusion and stenosis of bilateral carotid arteries; Z79.82 Long term (current) use of aspirin; Z87.891 Personal history of nicotine dependence; Z79.899 Other long term (current) drug therapy
CPT/HCPCS: 43239; 87426; 88305; 88313; 88342; C9803; J7120

== ENCOUNTER → 2020-09-04 14:59 | Outpatient (CLI) | payer MEDICARE, OTHER, SELFPAY ==
[2020-07-09 15:41] VITALS: BMI 37.3
[2020-09-04 11:39] LABS: Mucous, Urine 0 SEEN /hpf (<or=2+); Red Blood Cells-Urine 0 SEEN /hpf (0-5)
[2020-09-04 16:00] LABS: Color, Urine Yellow (Yellow); Glucose, Dipstick Normal (Normal); Ketone-Dipstick Negative (Negative); Leukocyte Esterase-Dipstick 500 /ul (Negative); Nitrite-Dipstick Negative (Negative); Occult Blood-Urine 50 /ul (Negative); Protein-Dipstick 30 mg/dl (Negative); Urine Bilirubin Dipstick Negative (Negative); Urine Clarity Cloudy (Clear); Urine Urobilinogen Normal (Normal)
[2020-09-04 16:15] LABS: Absolute Lymphocyte Count 2.34 X10^3/uL (0.83-4.51); Absolute Neutrophil Count 8.1 X10^3/uL (2.0-7.7); Basophil# 0.05 X10^3/uL; Basophil% 0.4 % (0-1); Eosinophil# 0.31 X10^3/uL; Eosinophils% 2.7 % (0-5); Hematocrit 44.6 % (37-47); Hemoglobin 14.4 g/dL (12.0-15.0); Lymphocyte # 2.34 X10^3/ul (0.83-4.51); Lymphocyte % 20.3 % (19-41); Mean Corp Hgb Conc 32.3 g/dL (32-36); Mean Corpuscular Hgb 29.8 pg (27.0-32.0); Mean Corpuscular Volume 92.3 fL (81-99); Mean Platelet Vol. 10.3 fl (6.2-12.0); Monocyte% 6.1 % (0-10); NRBC Flagged by Analyzer 0 % (0-5); Neutrophil # 8.06 X10^3/uL (2.7-7.7); Neutrophil % 70.2 % (47-70); Platelet Count 304 K/mm3 (150-450); RBC Distribution Width CV 14.2 % (11.6-14.6); RBC Distribution Width SD 47.8 fl (35.1-43.9); Red Blood Count 4.83 M/mm3 (4.2-5.4); White Blood Count 11.5 K/mm3 (4.4-11.0)
[2020-09-04 16:23] LABS: AST(SGOT) 19 U/L (15-37); Alanine Aminotransfer ALT/SGPT 23 U/L (13-56); Albumin, Serum 3.7 g/dL (3.2-5.0); Alkaline Phosphatase 106 U/L (45-117); Anion Gap 6 (5-15); BUN 23 mg/dL (7-18); BUN/Creat Ratio 20.9 RATIO (10-20); Calcium,Total 9.4 mg/dL (8.5-10.1); Chloride 106 mmol/L (98-107); Cholesterol 157 mg/dL (200); EST Glomerular Filtration Rate 52 mL/min (>60); Est Glom Filt Rate - Afr Amer 62 mL/min (>60); Globulin 3.7 g/dL (2.2-4.2); Glucose 106 mg/dL (74-106); High Density Lipoprotein 62 mg/dL; Magnesium 2.1 mg/dL (1.6-2.6); Potassium 3.9 mmol/L (3.5-5.1); Protein, Total 7.4 g/dL (6.4-8.2); Sodium Level 138 mmol/L (136-145); Triglycerides 195 mg/dL; Very Low Density Lipoprotein 39 mg/dL (5-40)
[2020-09-04 16:37] LABS: Protein, Urine (Random) 25.4 mg/dL (<11.9); Protein:Creat Ratio 330 mg/g CRE (0-200)
[2020-09-04 16:43] LABS: Bacteria 1+ /hpf (None Seen); Squamous Epithelial Cells - UA 0-5 SEEN /hpf (5-10); White Blood Cells >100 SEEN /hpf (0-5)
[2020-09-04 17:15] LABS: Hemoglobin A1c 5.7 % (3.8-5.6)
[2020-09-05 08:10] LABS: PTHIN 89.3 pg/mL (18.4-80.1)
[2020-09-06 12:57] LABS: Vitamin D,25 Hydroxy 66.6 ng/mL
== END ==
PROVIDERS: PCP Family Medicine; Referring Provider Family Medicine; Visit Provider Family Medicine
DX: N18.30 Chronic kidney disease, stage 3 unspecified (principal); E78.5 Hyperlipidemia, unspecified; E55.9 Vitamin D deficiency, unspecified; I47.1 Supraventricular tachycardia; R73.02 Impaired glucose tolerance (oral)
CPT/HCPCS: 36415; 80053; 80061; 81001; 82306; 82570; 83036; 83735; 83970; 84100; 84156; 85025

== ENCOUNTER → 2020-09-05 17:37 | Outpatient (CLI) | payer MEDICARE, OTHER, SELFPAY ==
[2020-07-09 15:41] VITALS: BMI 37.3
== END ==
PROVIDERS: PCP Family Medicine; Referring Provider Family Medicine; Visit Provider Family Medicine
DX: N39.0 Urinary tract infection, site not specified (principal)
CPT/HCPCS: 87086; 87088; 87186

== ENCOUNTER → 2020-11-15 11:39 | Outpatient (CLI) | payer MEDICARE, OTHER, SELFPAY ==
[2019-10-13 14:19] VITALS: BMI 36.3
[2020-07-09 15:41] VITALS: BMI 37.3
[2020-11-15 11:46] LABS: Bacteria 0 SEEN /hpf (None Seen); Mucous, Urine 0 SEEN /hpf (<or=2+); Red Blood Cells-Urine 0 SEEN /hpf (0-5)
[2020-11-15 15:03] LABS: Absolute Lymphocyte Count 2.03 X10^3/uL (0.83-4.51); Absolute Neutrophil Count 6.5 X10^3/uL (2.0-7.7); Basophil# 0.04 X10^3/uL; Basophil% 0.4 % (0-1); Eosinophil# 0.23 X10^3/uL; Eosinophils% 2.5 % (0-5); Hematocrit 44.3 % (37-47); Hemoglobin 14.2 g/dL (12.0-15.0); Lymphocyte # 2.03 X10^3/ul (0.83-4.51); Lymphocyte % 21.7 % (19-41); Mean Corp Hgb Conc 32.1 g/dL (32-36); Mean Corpuscular Volume 93.7 fL (81-99); Mean Platelet Vol. 10.1 fl (6.2-12.0); Monocyte# 0.52 X10^3/uL; Monocyte% 5.6 % (0-10); NRBC Flagged by Analyzer 0 % (0-5); Neutrophil % 69.4 % (47-70); Platelet Count 309 K/mm3 (150-450); RBC Distribution Width CV 14.2 % (11.6-14.6); RBC Distribution Width SD 48.9 fl (35.1-43.9); Red Blood Count 4.73 M/mm3 (4.2-5.4); White Blood Count 9.4 K/mm3 (4.4-11.0)
[2020-11-15 15:23] LABS: Color, Urine Yellow (Yellow); Glucose, Dipstick Normal (Normal); Ketone-Dipstick Negative (Negative); Leukocyte Esterase-Dipstick 25 /ul (Negative); Nitrite-Dipstick Negative (Negative); Occult Blood-Urine Negative /ul (Negative); Protein-Dipstick 15 mg/dl (Negative); Urine Bilirubin Dipstick Negative (Negative); Urine Clarity Clear (Clear); Urine Urobilinogen Normal (Normal)
[2020-11-15 15:29] LABS: AST(SGOT) 18 U/L (15-37); Alanine Aminotransfer ALT/SGPT 32 U/L (13-56); Albumin, Serum 3.6 g/dL (3.2-5.0); Alkaline Phosphatase 106 U/L (45-117); Anion Gap 10 (5-15); BUN 24 mg/dL (7-18); BUN/Creat Ratio 17.9 RATIO (10-20); Calcium,Total 9.1 mg/dL (8.5-10.1); Chloride 105 mmol/L (98-107); Cholesterol 156 mg/dL (200); Creatinine, Serum 1.34 mg/dL (0.55-1.02); EST Glomerular Filtration Rate 41 mL/min (>60); Est Glom Filt Rate - Afr Amer 50 mL/min (>60); Globulin 3.6 g/dL (2.2-4.2); Glucose 116 mg/dL (74-106); High Density Lipoprotein 54 mg/dL; Magnesium 2.1 mg/dL (1.6-2.6); Phosphorus 3.9 mg/dL (2.5-4.9); Potassium 3.7 mmol/L (3.5-5.1); Protein, Total 7.2 g/dL (6.4-8.2); Sodium Level 140 mmol/L (136-145); Triglycerides 242 mg/dL; Very Low Density Lipoprotein 48 mg/dL (5-40)
[2020-11-15 15:30] LABS: Hemoglobin A1c 5.6 % (3.8-5.6)
[2020-11-15 15:34] LABS: Vitamin D,25 Hydroxy 64.7 ng/mL
[2020-11-15 15:42] LABS: Squamous Epithelial Cells - UA 10-25 SEEN /hpf (5-10)
[2020-11-15 15:43] LABS: Renal Epithelial Cells 0-5 SEEN /hpf (0-5); White Blood Cells 0-5 SEEN /hpf (0-5)
[2020-11-16 07:38] LABS: PTHIN 103.7 pg/mL (18.4-80.1)
== END ==
PROVIDERS: PCP Family Medicine; Visit Provider Internal Medicine Nephrology
DX: N18.30 Chronic kidney disease, stage 3 unspecified (principal); E55.9 Vitamin D deficiency, unspecified; I47.1 Supraventricular tachycardia; E78.5 Hyperlipidemia, unspecified; R73.02 Impaired glucose tolerance (oral)
CPT/HCPCS: 36415; 80053; 80061; 81001; 82306; 83036; 83735; 83970; 84100; 85025

== ENCOUNTER → 2020-12-31 11:00 | Outpatient (CLI) | payer MEDICARE, OTHER, SELFPAY ==
[2020-12-31 15:21] LABS: Albumin, Serum 3.7 g/dL (3.2-5.0); Anion Gap 8 (5-15); BUN 18 mg/dL (7-18); BUN/Creat Ratio 16.4 RATIO (10-20); Calcium,Total 9.6 mg/dL (8.5-10.1); Chloride 105 mmol/L (98-107); EST Glomerular Filtration Rate 52 mL/min (>60); Est Glom Filt Rate - Afr Amer 62 mL/min (>60); Glucose 82 mg/dL (74-106); Phosphorus 3.3 mg/dL (2.5-4.9); Potassium 3.9 mmol/L (3.5-5.1); Sodium Level 138 mmol/L (136-145)
== END ==
PROVIDERS: PCP Family Medicine; Referring Provider Internal Medicine Nephrology; Visit Provider Internal Medicine Nephrology
DX: N18.30 Chronic kidney disease, stage 3 unspecified (principal)
CPT/HCPCS: 36415; 80048; 82040; 84100

== ENCOUNTER → 2021-02-14 12:46 | Outpatient (CLI) | payer MEDICARE, OTHER, SELFPAY ==
--- NOTE | 2021-02-14 12:48 | CDU_ITS ---
Reason For Study: Carotid stenosis, bilateral Rt. Velocities/BP Lt. Velocities/BP Prox CCA 111.2/20 cm/sec. Prox CCA 90/16.3 cm/sec. Mid CCA 116.5/16 cm/sec. Mid CCA 94.9/16.3 cm/sec. Dist CCA 86.5/18.6 cm/sec. Dist CCA 85.1/13.9 cm/sec. Prox ICA 102.8/18.8 cm/sec. Prox ICA 113.8/18.8 cm/sec. Mid ICA 93.7/18.8 cm/sec. Mid ICA 119.3/15.2 cm/sec. Dist ICA 115.6/22.5 cm/sec. Dist ICA 79.2/13.6 cm/sec. Rt. ICA/CCA = 1.04. Lt. ICA/CCA = 1.26. Prox ECA 144.8/11.5 cm/sec. Prox ECA 172.2/13.3 cm/sec. Rt. Vert. 26.4/6.5 cm/sec. Lt. Vert. 71.8/16.8 cm/sec. Right Extracranial There is homogeneous, smooth atherosclerotic plaque noted in the right common carotid artery. There is heterogeneous, irregular atherosclerotic plaque noted in the right internal carotid artery. There is homogeneous, smooth atherosclerotic plaque noted in the right external carotid artery. Bidirectional flow is noted in the right vertebral artery. Left Extracranial There is homogeneous, smooth atherosclerotic plaque noted in the left common carotid artery. There is heterogeneous, irregular atherosclerotic plaque noted in the left internal carotid artery. There is heterogeneous, irregular atherosclerotic plaque noted in the left external carotid artery. Antegrade flow is noted in the left vertebral artery. Procedure Carotid Duplex 63809. This is a Carotid Duplex examination using B-mode, color flow and specral Doppler. Exam performed in department. VL/Carotid Duplex Ultrasound Interpretation Summary Calcific plaque with shadowing at the proximal right internal carotid artery wi th less than 50% stenosis Less than 50% stenosis right external carotid artery Irregular calcific plaque at the proximal left internal carotid artery with a l ess than 50% stenosis Less than 50% stenosis left external carotid artery Patent antegrade vertebral arteries bilaterally Elevated velocities noted in bilateral distal internal carotid arteries on the previous examination of February 20, 2020 are not duplicated on today's examination Ordering Physician: Rubén Hansen Referring Physician: Donny Herndon Performed By: Audra Zabala RVT
== END ==
PROVIDERS: PCP Family Medicine; Referring Provider Surgery; Visit Provider Surgery
DX: I65.23 Occlusion and stenosis of bilateral carotid arteries (principal)
CPT/HCPCS: 93880

== ENCOUNTER → 2021-03-14 11:52 | Outpatient (CLI) | payer MEDICARE, OTHER, SELFPAY ==
--- NOTE | 2021-03-14 11:56 | BI_ITS ---
MAMMOGRAPHY - BILATERAL SCREENING REASON FOR EXAM: Female, 76 years old. Routine annual screening examination. PERTINENT HISTORY: Non-contributory. TECHNIQUE: Digital bilateral breast brandt (3D mammographic acquisition) in the CC and MLO projections. 2-D mediolateral oblique (MLO) and craniocaudad (CC) views of both breasts were obtained. CAD: Full Field Digital Mammography with Computer Added Detection was performed. COMPARISON: Comparison is made with prior study dated 10/06/2019 and 11/09/2018. FINDINGS: Breast Composition: The breasts are heterogeneously dense, which may obscure small masses. There are no dominant masses or suspicious calcifications. Stable calcified fibroadenoma in the lower inner aspect of the right breast. No other significant abnormalities are identified. There has been no significant change since the prior study. BI/SCRN MAMM (CAD)W/BRANDT BILAT IMPRESSION: Stable bilateral screening mammogram. Yearly follow-up mammogram recommended. (A) ASSESSMENT CATEGORY: BIRADS Category 2: Benign. A letter regarding these results will be sent to the patient by the facility within 30 days. Approximately 10% of breast cancers are not detected by mammography. A normal mammogram should not delay biopsy of a clinically suspicious abnormality. [id number] Electronically Signed: Parish Dhillon MD at 13:26 EST , Service support ,
--- NOTE | 2021-03-14 12:20 | BD_ITS ---
STUDY: DUAL ENERGY X-RAY ABSORPTIOMETRY / DXA REASON FOR EXAM: Female, 76 years old. 733.90OsteopeniaBONE DENSITY REASON FOR EXAM TECHNIQUE: Bone Mineral Density (BMD) measurements of lumbar spine and bilateral hips were obtained. COMPARISON: Comparison is made with prior study dated 10/27/2018. FINDINGS: Lumbar Spine (L1-L4): g/cm2 (0.974) / T-score (-0.5) / Z-score (1.8) Findings are suggestive of normal bone density with a low fracture risk. Left Femur Total: g/cm2 (0.853) / T-score (-0.7) / Z-score (1.1) Left Femoral Neck: g/cm2 (0.673) / T-score (-1.6) / Z-score (0.5) Right Femur Total: g/cm2 (0.892) / T-score (-0.4) / Z-score (1.4) Right Femoral Neck: g/cm2 (0.655) / T-score (-1.7) / Z-score (0.3) The T-Scores on the most recent prior examination were: Lumbar Spine (L1-L4): There has been improvement of bone density since the previous examination. Left Femur Total: which represents a worsening of 5.3%. Right Femur Total: which represents a worsening of 1.6%. BD/Dexa Bone Density Study IMPRESSION: The patient is considered osteopenic as outlined below according to World [employer] Organization (WHO) criteria with a moderate fracture risk. There has been worsening of bone density since the previous examination. Reference Information: The T-score is the number of standard deviations above or below the standard which is normal for young adults at their peak bone mineral density. The World Health Organization (WHO) interprets the T-scores as follows: Above -1 Normal bone density Between -1 and -2.5 Osteopenia Equal to / or below -2.5 Osteoporosis As a practical clinical guideline, osteopenia may be graded as follows: Mild -1 through -1.5 Moderate -1.6 through -2.0 Severe -2.1 through -2.4 The Z-score is the number of standard deviations above or below age-matched controls. A Z-score of less than -1.5 would be considered abnormal. References: 1. NIH Osteoporosis and Related Bone Diseases www osteo.org 2. International Society for Clinical Densitometry www iscd.org 3. National Osteoporosis Foundation www nof.org Electronically Signed: Parish Dhillon MD at 8:36 EST , Service support ,
== END ==
PROVIDERS: PCP Family Medicine; Visit Provider Family Medicine
DX: Z12.31 Encounter for screening mammogram for malignant neoplasm of breast (principal); M85.862 Other specified disorders of bone density and structure, left lower leg; M85.861 Other specified disorders of bone density and structure, right lower leg; M85.88 Other specified disorders of bone density and structure, other site; M81.0 Age-related osteoporosis without current pathological fracture
CPT/HCPCS: 77063; 77067; 77080

== ENCOUNTER 2021-05-22 10:13 | Outpatient (CLI) | payer MEDICARE, OTHER, SELFPAY ==
[2021-05-22 10:25] LABS: Mucous, Urine 0 SEEN /hpf (<or=2+); Red Blood Cells-Urine 0 SEEN /hpf (0-5); White Blood Cells 0 SEEN /hpf (0-5)
[2021-05-22 12:26] LABS: Absolute Lymphocyte Count 1.75 X10^3/uL (0.83-4.51); Absolute Neutrophil Count 6.1 X10^3/uL (2.0-7.7); Basophil# 0.05 X10^3/uL; Basophil% 0.6 % (0-1); Eosinophil# 0.28 X10^3/uL; Eosinophils% 3.2 % (0-5); Hematocrit 44.3 % (37-47); Hemoglobin 14.8 g/dL (12.0-15.0); Lymphocyte # 1.75 X10^3/ul (0.83-4.51); Lymphocyte % 19.8 % (19-41); Mean Corp Hgb Conc 33.4 g/dL (32-36); Mean Corpuscular Hgb 31.2 pg (27.0-32.0); Mean Corpuscular Volume 93.3 fL (81-99); Mean Platelet Vol. 9.8 fl (6.2-12.0); Monocyte% 6.8 % (0-10); NRBC Flagged by Analyzer 0 % (0-5); Neutrophil # 6.11 X10^3/uL (2.7-7.7); Neutrophil % 69.3 % (47-70); Platelet Count 277 K/mm3 (150-450); RBC Distribution Width CV 13.9 % (11.6-14.6); RBC Distribution Width SD 47.3 fl (35.1-43.9); Red Blood Count 4.75 M/mm3 (4.2-5.4); White Blood Count 8.8 K/mm3 (4.4-11.0)
[2021-05-22 12:31] LABS: Color, Urine Yellow (Yellow); Glucose, Dipstick Normal (Normal); Ketone-Dipstick Negative (Negative); Leukocyte Esterase-Dipstick Negative /ul (Negative); Nitrite-Dipstick Negative (Negative); Occult Blood-Urine Negative /ul (Negative); Protein-Dipstick Negative (Negative); Urine Bilirubin Dipstick Negative (Negative); Urine Clarity Clear (Clear); Urine Urobilinogen Normal (Normal)
[2021-05-22 12:44] LABS: Bacteria RARE /hpf (None Seen); Squamous Epithelial Cells - UA 0-5 SEEN /hpf (5-10)
[2021-05-22 12:46] LABS: Vitamin D,25 Hydroxy 58.9 ng/mL
[2021-05-22 13:00] LABS: AST(SGOT) 16 U/L (15-37); Alanine Aminotransfer ALT/SGPT 24 U/L (13-56); Albumin, Serum 3.6 g/dL (3.2-5.0); Alkaline Phosphatase 103 U/L (45-117); Anion Gap 8 (5-15); BUN 20 mg/dL (7-18); BUN/Creat Ratio 17.1 RATIO (10-20); Calcium,Total 9.5 mg/dL (8.5-10.1); Chloride 106 mmol/L (98-107); Cholesterol 134 mg/dL (200); Creatinine, Serum 1.17 mg/dL (0.55-1.02); EST Glomerular Filtration Rate 48 mL/min (>60); Est Glom Filt Rate - Afr Amer 58 mL/min (>60); Globulin 3.6 g/dL (2.2-4.2); Glucose 107 mg/dL (74-106); High Density Lipoprotein 57 mg/dL; Phosphorus 3.1 mg/dL (2.5-4.9); Potassium 3.9 mmol/L (3.5-5.1); Protein, Total 7.2 g/dL (6.4-8.2); Sodium Level 139 mmol/L (136-145); Triglycerides 172 mg/dL; Very Low Density Lipoprotein 34 mg/dL (5-40)
[2021-05-22 13:01] LABS: PTHIN 75.8 pg/mL (18.4-80.1)
[2021-05-22 13:11] LABS: Protein, Urine (Random) 13.9 mg/dL (<11.9); Protein:Creat Ratio 138 mg/g CRE (0-200)
[2021-05-23 10:09] LABS: MG Sendout 1.9 mg/dL (1.6-2.3)
== END 2021-05-22 23:59 | disposition home or self-care (01) ==
LOC: MFPLAB 10:14
PROVIDERS: PCP Family Medicine; Referring Provider Family Medicine; Visit Provider Family Medicine
DX: N18.30 Chronic kidney disease, stage 3 unspecified (principal); I47.1 Supraventricular tachycardia; M85.80 Other specified disorders of bone density and structure, unspecified site; E78.5 Hyperlipidemia, unspecified
CPT/HCPCS: 36415; 80053; 80061; 81001; 82306; 82570; 83735; 83970; 84100; 84156; 85025

== ENCOUNTER → 2021-09-23 | Outpatient (CLI) | payer MEDICARE, OTHER, SELFPAY ==
[2021-09-23 15:23] LABS: Mucous, Urine 0 SEEN /hpf (<or=2+); Red Blood Cells-Urine 0 SEEN /hpf (0-5)
[2021-09-23 17:44] LABS: Absolute Lymphocyte Count 1.73 X10^3/uL (0.83-4.51); Absolute Neutrophil Count 6.7 X10^3/uL (2.0-7.7); Basophil# 0.03 X10^3/uL; Basophil% 0.3 % (0-1); Eosinophil# 0.29 X10^3/uL; Eosinophils% 3.1 % (0-5); Hematocrit 43.9 % (37-47); Lymphocyte # 1.73 X10^3/ul (0.83-4.51); Lymphocyte % 18.4 % (19-41); Mean Corp Hgb Conc 31.9 g/dL (32-36); Mean Corpuscular Hgb 30.1 pg (27.0-32.0); Mean Corpuscular Volume 94.4 fL (81-99); Mean Platelet Vol. 9.9 fl (6.2-12.0); Monocyte# 0.59 X10^3/uL; Monocyte% 6.3 % (0-10); NRBC Flagged by Analyzer 0 % (0-5); Neutrophil # 6.74 X10^3/uL (2.7-7.7); Neutrophil % 71.6 % (47-70); Platelet Count 290 K/mm3 (150-450); RBC Distribution Width SD 48.4 fl (35.1-43.9); Red Blood Count 4.65 M/mm3 (4.2-5.4); White Blood Count 9.4 K/mm3 (4.4-11.0)
[2021-09-23 17:57] LABS: ALB/GLOB Ratio 1.1 RATIO (0.9-2.4); AST(SGOT) 20 U/L (15-37); Alanine Aminotransfer ALT/SGPT 28 U/L (13-56); Albumin, Serum 3.9 g/dL (3.2-5.0); Alkaline Phosphatase 101 U/L (45-117); Anion Gap 6 (5-15); BUN 31 mg/dL (7-18); BUN/Creat Ratio 24.4 RATIO (10-20); Calcium,Total 9.6 mg/dL (8.5-10.1); Chloride 106 mmol/L (98-107); Cholesterol 151 mg/dL (200); Creatinine, Serum 1.27 mg/dL (0.55-1.02); EST Glomerular Filtration Rate 44 mL/min (>60); Est Glom Filt Rate - Afr Amer 53 mL/min (>60); Globulin 3.4 g/dL (2.2-4.2); Glucose 92 mg/dL (74-106); High Density Lipoprotein 61 mg/dL; Magnesium 1.9 mg/dL (1.6-2.6); Potassium 4.2 mmol/L (3.5-5.1); Protein, Total 7.3 g/dL (6.4-8.2); Sodium Level 139 mmol/L (136-145); Thyroid Stim Hormone (TSH) 2.31 uIU/mL (0.358-3.74); Triglycerides 154 mg/dL; Very Low Density Lipoprotein 31 mg/dL (5-40)
[2021-09-23 18:07] LABS: Hemoglobin A1c 5.7 % (3.8-5.6)
[2021-09-23 18:16] LABS: Color, Urine Yellow (Yellow); Glucose, Dipstick Normal (Normal); Ketone-Dipstick Negative (Negative); Leukocyte Esterase-Dipstick 100 /ul (Negative); Nitrite-Dipstick Negative (Negative); Occult Blood-Urine Negative /ul (Negative); Protein-Dipstick Negative (Negative); Specific Gravity, Urine 1.015 (1.002-1.030); Urine Bilirubin Dipstick Negative (Negative); Urine Clarity Clear (Clear); Urine Urobilinogen Normal (Normal)
[2021-09-23 18:26] LABS: Squamous Epithelial Cells - UA 0-5 SEEN /hpf (5-10); White Blood Cells 5-10 SEEN /hpf (0-5)
[2021-09-23 18:27] LABS: Bacteria 2+ /hpf (None Seen)
[2021-09-23 19:22] LABS: PTHIN 76.8 pg/mL (18.4-80.1)
[2021-09-23 20:02] LABS: Vitamin D,25 Hydroxy 62.2 ng/mL
== END | disposition home or self-care (01) ==
LOC: MFPLAB 15:19
PROVIDERS: PCP Family Medicine; Visit Provider Family Medicine
DX: I12.9 Hypertensive chronic kidney disease with stage 1 through stage 4 chronic kidney disease, or unspecified chronic kidney disease (principal); N18.30 Chronic kidney disease, stage 3 unspecified; R73.02 Impaired glucose tolerance (oral); E78.5 Hyperlipidemia, unspecified; E55.9 Vitamin D deficiency, unspecified
CPT/HCPCS: 36415; 80053; 80061; 81001; 82306; 83036; 83735; 83970; 84443; 85025

== ENCOUNTER → 2022-02-07 | Outpatient (CLI) | payer MEDICARE, OTHER, SELFPAY ==
--- NOTE | 2022-02-07 10:02 | RAD_ITS ---
EXAM: XR RIGHT KNEE, 3 VIEWS CLINICAL INDICATION: KNEE CREPITUS TECHNIQUE: Three views of the right knee. This report was created using [employer] report generation technology. COMPARISON: None. FINDINGS: BONES/JOINTS: Mild bony spurring of the knee joint. No significant joint space narrowing. No fracture, subluxation or joint effusion. SOFT TISSUES: Normal. No soft tissue swelling or gas. No radiopaque foreign body. RAD/Knee 3 Views IMPRESSION: No acute abnormality. Mild DJD. Electronically Signed: Denny Pereira MD at 10:30 EDT ,
--- NOTE | 2022-02-07 10:03 | RAD_ITS ---
EXAM: XR LEFT KNEE, 3 VIEWS CLINICAL INDICATION: KNEE CREPITUS TECHNIQUE: Three views of the left knee. This report was created using [employer] report generation technology. COMPARISON: None. FINDINGS: BONES/JOINTS: Mild narrowing of the medial knee joint compartment. Minor osteophytosis. No acute fracture, subluxation or joint effusion. SOFT TISSUES: Normal. No soft tissue swelling or gas. No radiopaque foreign body. RAD/Knee 3 Views IMPRESSION: No acute abnormality. Mild DJD. Electronically Signed: Denny Pereira MD at 10:25 EDT ,
== END | disposition home or self-care (01) ==
LOC: MTRAD 09:59
PROVIDERS: PCP Family Medicine; Referring Provider Family Medicine; Visit Provider Family Medicine
DX: M23.8X9 Other internal derangements of unspecified knee (principal)
CPT/HCPCS: 73562

== ENCOUNTER → 2022-03-18 | Outpatient (CLI) | payer MEDICARE, OTHER, SELFPAY ==
--- NOTE | 2022-03-18 10:39 | BI_ITS ---
MAMMOGRAPHY - BILATERAL SCREENING REASON FOR EXAM: Female, 77 years old. Routine annual screening examination. PERTINENT HISTORY: Non-contributory. TECHNIQUE: Digital bilateral breast brandt (3D mammographic acquisition) in the CC and MLO projections. 2-D mediolateral oblique (MLO) and craniocaudad (CC) views of both breasts were obtained. CAD: Full Field Digital Mammography with Computer Added Detection was performed. COMPARISON: Comparison is made with prior study dated 03/14/2021 and 10/06/2019. FINDINGS: Breast Composition: The breasts are heterogeneously dense, which may obscure small masses. There are no dominant masses or suspicious calcifications. Stable partially calcified nodule in the inferior anterior medial aspect of the right breast. Stable benign-appearing bilateral axillary lymph nodes. No other significant abnormalities are identified. There has been no significant change since the prior study. BI/SCRN MAMM (CAD)W/BRANDT BILAT IMPRESSION: Stable bilateral screening mammogram. Yearly follow-up mammogram recommended. (A) ASSESSMENT CATEGORY: BIRADS Category 2: Benign. A letter regarding these results will be sent to the patient by the facility within 30 days. Approximately 10% of breast cancers are not detected by mammography. A normal mammogram should not delay biopsy of a clinically suspicious abnormality. [id number] Electronically Signed: Parish Dhillon MD at 13:47 EST ,
== END | disposition home or self-care (01) ==
LOC: OPBI 10:37
PROVIDERS: PCP Family Medicine; Referring Provider Family Medicine; Visit Provider Family Medicine
DX: Z12.31 Encounter for screening mammogram for malignant neoplasm of breast (principal); N63.14 Unspecified lump in the right breast, lower inner quadrant
CPT/HCPCS: 77063; 77067

== ENCOUNTER → 2022-05-30 | Outpatient (CLI) | payer MEDICARE, SELFPAY ==
--- NOTE | 2022-05-30 14:37 | VDLE_ITS ---
Reason For Study: LEG SWELLING RIGHT LEFT GSV is normal. CFV is compressible, spontaneous, phasic, CFV is compressible, spontaneous, continuous, competent, and demonstrates normal competent and demonstrates augmentation. augmentation. FV is compressible, spontaneous, continuous, competent and demonstrates augmentation. POP V is compressible, spontaneous and continuous. T/P Trunk is compressible. PTV is compressible. RT PerV is compressible. Acute deep vein thrombosis is noted in the right soleus vein. Procedure This is a venous duplex using B-mode, color flow and spectral Doppler. Exam performed in department. The exam was diagnostic. A preliminary report was called and/or faxed to [facility] Phone deputy harbormaster. VL/Venous Duplex US, Unilateral Interpretation Summary Acute deep venous thrombosis right soleus vein Patent and compressible right great saphenous vein Normal flow patterns left common femoral vein Ordering Physician: Donny Herndon Referring Physician: Donny Herndon Performed By: Gurmeet Stewart RVT
== END | disposition home or self-care (01) ==
LOC: CVS 14:35
PROVIDERS: PCP Family Medicine; Referring Provider Family Medicine; Visit Provider Family Medicine
DX: M79.89 Other specified soft tissue disorders (principal)
CPT/HCPCS: 93971

== ENCOUNTER → 2022-06-10 | Outpatient (CLI) | payer MEDICARE, SELFPAY ==
--- NOTE | 2022-06-10 09:55 | RAD_ITS ---
STUDY: XR Knee 3 Views 06/10/2022 4:59 PM REASON FOR EXAM: Female, 77 years old. KNEE PAIN TECHNIQUE: XR Knee 3 Views RIGHT COMPARISON: None FINDINGS: Normal visualized distal femur. Normal visualized proximal tibia and fibula. Normal proximal tibiofibular articulation. There is mild degenerative arthrosis of the medial femorotibial compartment. There is mild degenerative arthrosis of the lateral femorotibial compartment. There is mild degenerative arthrosis of the patellofemoral articulation. The soft tissue structures are unremarkable. RAD/Knee 3 Views IMPRESSION: Degenerative arthrosis. Electronically Signed: Bharat Sandoval MD at 17:00 EST ,
== END | disposition home or self-care (01) ==
LOC: MTRAD 09:54
PROVIDERS: PCP Family Medicine; Referring Provider Family Medicine; Visit Provider Family Medicine
DX: M25.561 Pain in right knee (principal)
CPT/HCPCS: 73562

== ENCOUNTER → 2022-07-03 | Outpatient (CLI) | payer MEDICARE, SELFPAY ==
[2022-07-03 11:34] LABS: Bacteria 0 SEEN /hpf (None Seen); Mucous, Urine 0 SEEN /hpf (<or=2+); Red Blood Cells-Urine 0 SEEN /hpf (0-5); White Blood Cells 0 SEEN /hpf (0-5)
[2022-07-03 15:11] LABS: Absolute Lymphocyte Count 1.94 X10^3/uL (0.83-4.51); Basophil# 0.04 X10^3/uL; Basophil% 0.5 % (0-1); Color, Urine Yellow (Yellow); Eosinophil# 0.27 X10^3/uL; Eosinophils% 3.1 % (0-5); Glucose, Dipstick Normal (Normal); Hematocrit 44.4 % (37-47); Ketone-Dipstick Negative (Negative); Leukocyte Esterase-Dipstick 25 /ul (Negative); Lymphocyte # 1.94 X10^3/ul (0.83-4.51); Lymphocyte % 22.2 % (19-41); Mean Corp Hgb Conc 31.5 g/dL (32-36); Mean Corpuscular Hgb 29.6 pg (27.0-32.0); Mean Corpuscular Volume 93.9 fL (81-99); Mean Platelet Vol. 9.6 fl (6.2-12.0); Monocyte# 0.48 X10^3/uL; Monocyte% 5.5 % (0-10); NRBC Flagged by Analyzer 0 % (0-5); Neutrophil # 5.96 X10^3/uL (2.7-7.7); Neutrophil % 68.4 % (47-70); Nitrite-Dipstick Negative (Negative); Occult Blood-Urine Negative /ul (Negative); Platelet Count 302 K/mm3 (150-450); Protein-Dipstick Negative (Negative); RBC Distribution Width CV 13.4 % (11.6-14.6); RBC Distribution Width SD 45.9 fl (35.1-43.9); Red Blood Count 4.73 M/mm3 (4.2-5.4); Specific Gravity, Urine 1.005 (1.002-1.030); Urine Bilirubin Dipstick Negative (Negative); Urine Clarity Clear (Clear); Urine Urobilinogen Normal (Normal); White Blood Count 8.7 K/mm3 (4.4-11.0)
[2022-07-03 15:21] LABS: Squamous Epithelial Cells - UA 0-5 SEEN /hpf (5-10)
[2022-07-03 15:59] LABS: Vitamin D,25 Hydroxy 64.2 ng/mL
[2022-07-03 16:01] LABS: Hemoglobin A1c 5.6 % (3.8-5.6)
[2022-07-03 16:09] LABS: ALB/GLOB Ratio 1.1 RATIO (0.9-2.4); AST(SGOT) 17 U/L (15-37); Alanine Aminotransfer ALT/SGPT 25 U/L (13-56); Albumin, Serum 3.5 g/dL (3.2-5.0); Alkaline Phosphatase 93 U/L (45-117); Anion Gap 8 (5-15); BUN 24 mg/dL (7-18); BUN/Creat Ratio 21.2 RATIO (10-20); Calcium,Total 9.3 mg/dL (8.5-10.1); Chloride 106 mmol/L (98-107); Cholesterol 147 mg/dL (200); Creatinine, Serum 1.13 mg/dL (0.55-1.02); EST Glomerular Filtration Rate 50 mL/min (>60); Est Glom Filt Rate - Afr Amer 60 mL/min (>60); Globulin 3.2 g/dL (2.2-4.2); Glucose 117 mg/dL (74-106); High Density Lipoprotein 55 mg/dL; Magnesium 1.8 mg/dL (1.6-2.6); Phosphorus 2.8 mg/dL (2.5-4.9); Potassium 3.7 mmol/L (3.5-5.1); Protein, Total 6.7 g/dL (6.4-8.2); Sodium Level 139 mmol/L (136-145); Triglycerides 183 mg/dL; Very Low Density Lipoprotein 37 mg/dL (5-40)
[2022-07-03 16:10] LABS: Protein, Urine (Random) 10.3 mg/dL (<11.9); Protein:Creat Ratio 122 mg/g CRE (0-200)
[2022-07-04 07:32] LABS: PTHIN 78.2 pg/mL (18.4-80.1)
== END | disposition home or self-care (01) ==
LOC: MFPLAB 11:26
PROVIDERS: PCP Family Medicine; Referring Provider Family Medicine; Visit Provider Family Medicine
DX: I12.9 Hypertensive chronic kidney disease with stage 1 through stage 4 chronic kidney disease, or unspecified chronic kidney disease (principal); N18.30 Chronic kidney disease, stage 3 unspecified; R73.02 Impaired glucose tolerance (oral); E83.42 Hypomagnesemia
CPT/HCPCS: 36415; 80053; 80061; 81001; 82306; 82570; 83036; 83735; 83970; 84100; 84156; 85025

== ENCOUNTER → 2022-09-17 | Outpatient (CLI) | payer MEDICARE, SELFPAY ==
[2022-09-17 10:18] LABS: Albumin, Serum 3.7 g/dL (3.2-5.0); BUN 23 mg/dL (7-18); BUN/Creat Ratio 18.3 RATIO (10-20); Calcium,Total 9.4 mg/dL (8.5-10.1); Chloride 108 mmol/L (98-107); Creatinine, Serum 1.26 mg/dL (0.55-1.02); EST Glomerular Filtration Rate 44 mL/min (>60); Est Glom Filt Rate - Afr Amer 53 mL/min (>60); Glucose 96 mg/dL (74-106); Phosphorus 2.5 mg/dL (2.5-4.9); Potassium 3.7 mmol/L (3.5-5.1); Sodium Level 137 mmol/L (136-145)
== END | disposition home or self-care (01) ==
LOC: LAB 09:28
PROVIDERS: PCP Family Medicine; Referring Provider Internal Medicine Nephrology; Visit Provider Internal Medicine Nephrology
DX: N18.30 Chronic kidney disease, stage 3 unspecified (principal)
CPT/HCPCS: 36415; 80069

== ENCOUNTER → 2022-10-07 | Outpatient (CLI) | payer MEDICARE, SELFPAY ==
--- NOTE | 2022-10-07 12:54 | ECHOD_ITS ---
Reason For Study: MURMUR Procedure This was a 2D Doppler, Color Flow transthoracic echocardiogram. Exam performed in department. Left Ventricle Normal LV size. Left ventricular systolic function is normal. The estimated ejection fraction is 65 %. Stage 1 diastolic dysfunction. No regional wall motion abnormalities noted. Right Ventricle Normal RV size. Normal systolic function. Atria Normal right atrium. Prominent eustachian valve. Mitral Valve Normal mitral valve. Moderate (2+) eccentric mitral valve insufficiency. Tricuspid Valve Normal tricuspid valve. Mild to moderate (1-2+) tricuspid valve insufficiency. Pulmonary artery systolic pressure is 40 mmHg. Pulmonic Valve Normal pulmonic valve. Great Vessels Normal aortic root. The pulmonary artery is normal size. Inferior vena cava collapse with respiration. Pericardium/Pleural No pericardial effusion. MMode/2D Measurements & Calculations LVIDd: 5.0 cm IVSd: 0.89 cm Ao root diam: 3.6 cm LVIDs: 3.3 cm LVPWd: 1.2 cm RVDd: 4.5 cm FS: 34.7 % LAV(MOD-bp): 122.0 ml LVAd ap4: 31.8 cm2 SV(MOD-sp4): 74.1 ml LAV(MOD-bp) Indexed: 59.2 ml/m2 LVLd ap4: 7.3 cm LAV(MOD-sp2): 115.2 ml EDV(MOD-sp4): 111.6 ml LAV(MOD-sp4): 110.3 ml EDV(sp4-el): 117.2 ml LVAs ap4: 16.5 cm2 LVLs ap4: 6.0 cm ESV(MOD-sp4): 37.5 ml ESV(sp4-el): 38.5 ml EF(MOD-sp4): 66.4 % EF(sp4-el): 67.1 % SV(sp4-el): 78.7 ml LA dimension(2D): 4.5 cm LA A4 area: 31.3 cm2 RA A4 area: 17.6 cm2 Time Measurements MV dec time: 0.23 sec Doppler Measurements & Calculations MV E max carlitos: 99.6 cm/sec Lat Peak E' Carlitos: 14.0 cm/sec Med Peak E' Carlitos: 9.5 cm/sec MV A max carlitos: 104.4 cm/sec E/E' lat: 7.1 E/E' med: 10.5 MV E/A: 0.95 MV V2 max: 115.0 cm/sec Ao V2 max: 174.5 cm/sec MV max P.3 mmHg MV dec slope: 430.1 cm/sec2 Ao max P.2 mmHg MV V2 mean: 75.4 cm/sec Ao V2 mean: 128.7 cm/sec MV mean P.7 mmHg Ao mean P.4 mmHg MV V2 VTI: 42.8 cm Ao V2 VTI: 41.6 cm AV (velocity ratio): 0.72 LV V1 max: 124.3 cm/sec MR max carlitos: 561.1 cm/sec PA V2 max: 124.7 cm/sec LV V1 max P.2 mmHg MR max P.9 mmHg PA V2 mean: 87.3 cm/sec LV V1 mean P.1 mmHg MR mean carlitos: 450.5 cm/sec LV V1 mean: 96.1 cm/sec MR mean P.0 mmHg LV V1 VTI: 30.0 cm MR VTI: 208.6 cm TR max carlitos: 307.3 cm/sec TR max P.8 mmHg ECHO/Echo Complete Interpretation Summary Normal LV size. Left ventricular systolic function is normal. The estimated ejection fraction is 65 %. Stage 1 diastolic dysfunction. Pulmonary artery systolic pressure is 40 mmHg. Moderate (2+) eccentric mitral valve insufficiency. Ordering Physician: Elaina Aldridge Referring Physician: Elaina Aldridge Performed By: Suzanna Brown RCS
== END | disposition home or self-care (01) ==
LOC: CVS 12:54
PROVIDERS: PCP Family Medicine; Referring Provider Nurse Practitioner Gerontology; Visit Provider Nurse Practitioner Gerontology
DX: R01.1 Cardiac murmur, unspecified (principal)
CPT/HCPCS: 93306

== ENCOUNTER → 2022-10-10 | Outpatient (CLI) | payer MEDICARE, SELFPAY | END | disposition home or self-care (01) | PROVIDERS: PCP Family Medicine; Visit Provider Family Medicine | DX: R30.0 Dysuria (principal) | CPT/HCPCS: 87077; 87086; 87088; 87186 ==

== ENCOUNTER → 2022-10-30 | Outpatient (CLI) | payer MEDICARE, SELFPAY ==
[2022-10-30 08:52] LABS: Mucous, Urine 0 SEEN /hpf (<or=2+); Red Blood Cells-Urine 0 SEEN /hpf (0-5)
[2022-10-30 10:17] LABS: Absolute Lymphocyte Count 1.66 X10^3/uL (0.83-4.51); Absolute Neutrophil Count 6.1 X10^3/uL (2.0-7.7); Basophil# 0.04 X10^3/uL; Basophil% 0.5 % (0-1); Eosinophil# 0.27 X10^3/uL; Eosinophils% 3.1 % (0-5); Hematocrit 44.3 % (37-47); Hemoglobin 14.8 g/dL (12.0-15.0); Lymphocyte # 1.66 X10^3/ul (0.83-4.51); Lymphocyte % 19.2 % (19-41); Mean Corp Hgb Conc 33.4 g/dL (32-36); Mean Corpuscular Hgb 30.8 pg (27.0-32.0); Mean Corpuscular Volume 92.3 fL (81-99); Monocyte# 0.54 X10^3/uL; Monocyte% 6.3 % (0-10); NRBC Flagged by Analyzer 0 % (0-5); Neutrophil # 6.11 X10^3/uL (2.7-7.7); Neutrophil % 70.7 % (47-70); Platelet Count 291 K/mm3 (150-450); RBC Distribution Width CV 13.7 % (11.6-14.6); RBC Distribution Width SD 46.4 fl (35.1-43.9); White Blood Count 8.6 K/mm3 (4.4-11.0)
[2022-10-30 10:23] LABS: Color, Urine Yellow (Yellow); Glucose, Dipstick Normal (Normal); Ketone-Dipstick Negative (Negative); Leukocyte Esterase-Dipstick 25 /ul (Negative); Nitrite-Dipstick Negative (Negative); Occult Blood-Urine Negative /ul (Negative); Protein-Dipstick 15 mg/dl (Negative); Specific Gravity, Urine 1.015 (1.002-1.030); Urine Bilirubin Dipstick Negative (Negative); Urine Clarity Clear (Clear); Urine Urobilinogen Normal (Normal)
[2022-10-30 10:31] LABS: Protein, Urine (Random) 19.4 mg/dL (<11.9); Protein:Creat Ratio 113 mg/g CRE (0-200)
[2022-10-30 10:33] LABS: Bacteria RARE /hpf (None Seen); Squamous Epithelial Cells - UA 0-5 SEEN /hpf (5-10); White Blood Cells 0-5 SEEN /hpf (0-5)
[2022-10-30 10:35] LABS: Vitamin D,25 Hydroxy 73.9 ng/mL
[2022-10-30 10:41] LABS: Hemoglobin A1c 5.6 % (3.8-5.6)
[2022-10-30 10:45] LABS: ALB/GLOB Ratio 1.1 RATIO (0.9-2.4); AST(SGOT) 17 U/L (15-37); Alanine Aminotransfer ALT/SGPT 22 U/L (13-56); Albumin, Serum 3.8 g/dL (3.2-5.0); Alkaline Phosphatase 105 U/L (45-117); Anion Gap 7 (5-15); BUN 23 mg/dL (7-18); BUN/Creat Ratio 19.3 RATIO (10-20); Calcium,Total 9.4 mg/dL (8.5-10.1); Chloride 106 mmol/L (98-107); Cholesterol 153 mg/dL (200); Creatinine, Serum 1.19 mg/dL (0.55-1.02); EST Glomerular Filtration Rate 47 mL/min (>60); Est Glom Filt Rate - Afr Amer 57 mL/min (>60); Globulin 3.6 g/dL (2.2-4.2); Glucose 108 mg/dL (74-106); High Density Lipoprotein 76 mg/dL; Magnesium 1.9 mg/dL (1.6-2.6); Phosphorus 3.4 mg/dL (2.5-4.9); Protein, Total 7.4 g/dL (6.4-8.2); Sodium Level 139 mmol/L (136-145); Thyroid Stim Hormone (TSH) 2.42 uIU/mL (0.358-3.74); Triglycerides 125 mg/dL; Very Low Density Lipoprotein 25 mg/dL (5-40)
[2022-10-30 10:58] LABS: PTHIN 121.5 pg/mL (18.4-80.1)
== END | disposition home or self-care (01) ==
LOC: MTLAB 08:39
PROVIDERS: PCP Family Medicine; Visit Provider Family Medicine
DX: I12.9 Hypertensive chronic kidney disease with stage 1 through stage 4 chronic kidney disease, or unspecified chronic kidney disease (principal); N18.30 Chronic kidney disease, stage 3 unspecified; R73.02 Impaired glucose tolerance (oral); E55.9 Vitamin D deficiency, unspecified
CPT/HCPCS: 36415; 80053; 80061; 81001; 82306; 82570; 83036; 83735; 83970; 84100; 84156; 84443; 85025

== ENCOUNTER → 2023-01-05 | Outpatient (CLI) | payer MEDICARE, SELFPAY ==
--- NOTE | 2023-01-05 09:37 | CDU_ITS ---
Reason For Study: carotid stenosis Rt. Velocities/BP Lt. Velocities/BP Prox CCA 77.8/14.5 cm/sec. Prox CCA 100.3/21.2 cm/sec. Mid CCA 89.1/22.0 cm/sec. Mid CCA 97.1/22.3 cm/sec. Dist CCA 72.1/12.6 cm/sec. Dist CCA 96.0/16.8 cm/sec. Prox ICA 91.2/22.5 cm/sec. Prox ICA 113.3/36.0 cm/sec. Mid ICA 96.1/24.9 cm/sec. Mid ICA 139.4/27.9 cm/sec. Dist ICA 97.9/25.5 cm/sec. Dist ICA 96.9/19.6 cm/sec. Rt. ICA/CCA = 1.1. Lt. ICA/CCA = 1.4. Prox ECA 117.0/17.6 cm/sec. Prox ECA 154.0/17.0 cm/sec. Rt. Vert. 20.1/8.0 cm/sec. Lt. Vert. 76.5/20.0 cm/sec. Right Extracranial There is intimal thickening but no significant atherosclerotic plaque noted in the right common carotid artery. There is heterogeneous, irregular atherosclerotic plaque noted in the right internal carotid artery. There is homogeneous, smooth atherosclerotic plaque noted in the right external carotid artery. Bidirectional flow is noted in the right vertebral artery. Left Extracranial There is homogeneous, smooth atherosclerotic plaque noted in the left common carotid artery. There is heterogeneous, irregular atherosclerotic plaque noted in the left internal carotid artery. There is heterogeneous, irregular atherosclerotic plaque noted in the left external carotid artery. Antegrade flow is noted in the left vertebral artery. Procedure Carotid Duplex 61822. This is a Carotid Duplex examination using B-mode, color flow and specral Doppler. The exam was diagnostic. Exam performed in department. VL/Carotid Duplex Ultrasound Interpretation Summary Irregular calcific plaque at the proximal right internal carotid artery with le ss than 50% stenosis Less than 50% stenosis right external carotid artery Irregular calcific plaque at the proximal left internal carotid artery with 50 to 69% stenosis. Tortuosity noted. Less than 50% stenosis left external carotid artery Patent and antegrade vertebral arteries bilaterally Possible progression of left carotid disease from the previous examination of N ovember 2020 but interestingly no change from the previous examination of March 01, 2020. Lik marcus no clinically significant change. Ordering Physician: Rubén Hansen Performed By: Calos Stokes RVT
== END | disposition home or self-care (01) ==
LOC: CVS 09:37
PROVIDERS: PCP Family Medicine; Referring Provider Surgery; Visit Provider Surgery
DX: I65.23 Occlusion and stenosis of bilateral carotid arteries (principal)
CPT/HCPCS: 93880

== ENCOUNTER → 2023-02-03 | Outpatient (CLI) | payer MEDICARE, SELFPAY ==
--- NOTE | 2023-02-03 08:52 | AAAS_ITS ---
Reason For Study: Pulsatile mass Aorta Measurements Aorta Doppler Measurements Proximal aorta measures1.74 x 1.74cm. in cross- Peak systolic flow velocities within the proximal sectional axis. aorta measure 124.9 cm/sec. Proximal aorta measures1.68cm. in longitudinal Peak systolic flow velocities within the mid aorta axis. measure 92 cm/sec. Mid aorta measures1.63 x 1.61cm. in cross- Peak systolic flow velocities within the distal sectional axis. aorta measure 157.8 cm/sec. Mid aorta measures1.63cm. in longitudinal axis. Distal aorta measures1.16 x 1.16cm. in cross- sectional axis. Distal aorta measures1.18cm. in longitudinal axis. Left Iliac Artery Left iliac artery measures 0.83 x 0.84 cm. in the cross-sectional axis. Left iliac artery measures 0.82 cm. in the longitudinal axis. Peak systolic velocity in the left iliac artery measures 175.4 cm/sec. Right Iliac Artery Right iliac artery measures 0.70 x 0.68 cm. in the cross-sectional axis. Right iliac artery measures 0.70 cm. in the longitudinal axis. Peak systolic velocity in the right iliac artery measures 118.3 cm/sec. Procedure Aorta IVC Iliac vasculature or bypass grafts 67972. Exam performed in department. VL/AAA Screening Interpretation Summary Maximal aortic diameter approximately at 1.74 x 1.74 cm in diameter with no giselle dence for aortic aneurysm Slightly elevated peak systolic velocity within the proximal and distal abdomin al aorta at 124.9 cm/s and 157.8 cm/s respectively of undetermined significance. Left common iliac artery measuring 0.83 x 0.84 cm in diameter which is normal Right common iliac 0.7 x 0.68 cm in diameter which is normal Ordering Physician: Rubén Hansen Referring Physician: Donny Herndon Performed By: Audra Zabala RVT
== END | disposition home or self-care (01) ==
LOC: CVS 08:51
PROVIDERS: PCP Family Medicine; Referring Provider Surgery; Visit Provider Surgery
DX: R19.00 Intra-abdominal and pelvic swelling, mass and lump, unspecified site (principal)
CPT/HCPCS: 76706

== ENCOUNTER → 2023-03-19 | Outpatient (CLI) | payer MEDICARE, SELFPAY ==
--- NOTE | 2023-03-19 11:00 | BI_ITS ---
MAMMOGRAPHY - BILATERAL SCREENING REASON FOR EXAM: Female, 78 years old. Routine annual screening examination. PERTINENT HISTORY: Non-contributory. TECHNIQUE: Digital bilateral breast anival (3D mammographic acquisition) in the CC and MLO projections. 2-D mediolateral oblique (MLO) and craniocaudad (CC) views of both breasts were obtained. CAD: Full Field Digital Mammography with Computer Added Detection was performed. COMPARISON: Comparison is made with prior study of March 18, 2022 and March 14, 2021. FINDINGS: Breast Composition: The breasts are heterogeneously dense, which may obscure small masses. There are no dominant masses or suspicious calcifications. Stable densely calcified nodule in the slightly inferior medial aspect of the right breast. Stable small benign-appearing right axillary lymph nodes. No other significant abnormalities are identified. There has been no significant change since the prior study. BI/SCREENING MAMM (CAD), BILAT IMPRESSION: Stable bilateral screening mammogram. Yearly follow-up mammogram recommended. (A) ASSESSMENT CATEGORY: BIRADS Category 2: Benign. A letter regarding these results will be sent to the patient by the facility within 30 days. Approximately 10% of breast cancers are not detected by mammography. A normal mammogram should not delay biopsy of a clinically suspicious abnormality. [id number] Electronically Signed: Parish Dhillon MD at 13:00 EST ,
--- NOTE | 2023-03-19 11:03 | BD_ITS ---
STUDY: DUAL ENERGY X-RAY ABSORPTIOMETRY / DXA REASON FOR EXAM: Female, 78 years old. 733.90OsteopeniaBONE DENSITY REASON FOR EXAM TECHNIQUE: Bone Mineral Density (BMD) measurements of lumbar spine and bilateral hips were obtained. COMPARISON: Comparison is made with prior study dated March 14, 2021. FINDINGS: Lumbar Spine (L1-L4): g/cm2 (1.023) / T-score (-0.2) / Z-score (2.3) Findings are suggestive of normal bone density with a low fracture risk. Left Femur Total: g/cm2 (0.815) / T-score (-1.0) / Z-score (0.9) Left Femoral Neck: g/cm2 (0.665) / T-score (-1.7) / Z-score (0.5) Right Femur Total: g/cm2 (0.871) / T-score (-0.6) / Z-score (1.3) Right Femoral Neck: g/cm2 (0.703) / T-score (-1.3) / Z-score (0.9) The T-Scores on the most recent prior examination were: Lumbar Spine (L1-L4): There has been improvement of bone density since the previous examination. Left Femur Total: which represents a worsening of 4.5%. Right Femur Total: which represents a worsening of 2.4%. BD/Dexa Bone Density Study IMPRESSION: The patient is considered osteopenic as outlined below according to World [employer] Organization (WHO) criteria with a moderate fracture risk. There has been worsening of bone density since the previous examination. Reference Information: The T-score is the number of standard deviations above or below the standard which is normal for young adults at their peak bone mineral density. The World Health Organization (WHO) interprets the T-scores as follows: Above -1 Normal bone density Between -1 and -2.5 Osteopenia Equal to / or below -2.5 Osteoporosis As a practical clinical guideline, osteopenia may be graded as follows: Mild -1 through -1.5 Moderate -1.6 through -2.0 Severe -2.1 through -2.4 The Z-score is the number of standard deviations above or below age-matched controls. A Z-score of less than -1.5 would be considered abnormal. References: 1. NIH Osteoporosis and Related Bone Diseases www osteo.org 2. International Society for Clinical Densitometry www iscd.org 3. National Osteoporosis Foundation www nof.org Electronically Signed: Parish Dhillon MD at 13:41 EST ,
== END | disposition home or self-care (01) ==
LOC: OPBI 10:59
PROVIDERS: PCP Family Medicine; Referring Provider Family Medicine; Visit Provider Family Medicine
DX: Z12.31 Encounter for screening mammogram for malignant neoplasm of breast (principal); M85.89 Other specified disorders of bone density and structure, multiple sites
CPT/HCPCS: 77067; 77080

== ENCOUNTER → 2023-04-14 | Outpatient (CLI) | payer MEDICARE, SELFPAY ==
--- OUTSIDE RECORDS SUMMARY | 2023-04-14 10:29 | XMS RPT_ITS | CCD ---
Author Name Unknown Address [address] [place] [address] Organization [facility] Care Team Providers Care Thermoplastic Technician Name Role Phone Prabhjot Krishnamurthy MD Unavailable Cliff Núñez Unavailable Unavailable ROCCO Mar, Rani Santiago Unavailable Unavailable ROCCO Mar, Rani Santiago Unavailable Unavailable Cliff Núñez Unavailable Unavailable Prabhjot Krishnamurthy MD Unavailable ROCCO Palacios, Kalee Santiago Unavailable Unavailabl e Medications Completed/Discontinued Medications Medication Drug Class(es) Dates Sig (Normalized) Sig (Original) aspirin 81 mg delayed release oral tablet (7 sources) Nonsteroidal Anti-inflammatory Drug Start: 11-26-2016 take 1 tablet by mouth once daily ASPIRIN EC 81 MG TBEC One tablet by mouth daily ASPIRIN [id number] Rani Mar RN digoxin 0.125 mg oral tablet (7 sources) Cardiac Glycoside Start: 11-26-2016 take 1 tablet by mouth once daily DIGOXIN 125 MCG TABS One tablet by mouth daily DIGOXIN [id number] Rani Mar RN estradiol 0.1 mg/ml vaginal cream (7 sources) Estrogen Start: 11-26-2016 ESTRACE 0.1 MG/GM CREA Take as directed ESTRADIOL [id number] Rani Mar RN Problems Problem Classification Problem Date Documented Date Episodic/Chronic Cardiac dysrhythmias (7 sources) Paroxysmal supraventricular tachycardia; Translations: [Supraventricular tachycardia] Onset: 11-26-2016 11-26-2016 Chronic Disorders of lipid metabolism (7 sources) Hyperlipidemia; Translations: [Hyperlipidemia, unspecified] Onset: 11-26-2016 11-26-2016 Chronic Hypertension with complications and secondary hypertension (7 sources) Essential (primary) hypertension; Translations: [Essential (primary) hypertension] Onset: 11-26-2016 11-26-2016 Chronic Other nutritional; endocrine; and metabolic disorders (7 sources) Obesity; Translations: [Obesity, unspecified] Onset: 11-26-2016 11-26-2016 Chronic Results Test Name Value Interpretation Reference Range Facil ity Vital Signs Date Time Vital Sign Value Performing Clinician Pratima neal 11-27-2016 13:52-0400 Heart rate 69 /min Prabhjot Krishnamurthy MD [facility] Work Phone: 11-27-2016 10:06-0400 BMI (Body Mass Index) 34.38 kg/m2 Harumi DeFinis [facility] Work Phone: 11-27-2016 10:06-0400 BP Diastolic 80 mm[Hg] Harumi DeFinis [facility] Work Phone: 11-27-2016 10:06-0400 BP Systolic 118 mm[Hg] Harumi DeFinis [facility] Work Phone: 11-27-2016 10:06-0400 Height 167.64 cm Harumi DeFinis [facility] Work Phone: 11-27-2016 10:06-0400 Pulse (Heart Rate) 64 /min Harumi DeFinis [facility] Work Phone: 11-27-2016 10:06-0400 Respiratory Rate 16 /min Harumi DeFinis [facility] Work Phone: 11-27-2016 10:06-0400 Weight 96.62 kg Harumi DeFinis [facility] Work Phone: Procedures Date Procedure Procedure Detail Performing Clinician Start: 11-27-2016 End: 11-28-2016 Digoxin Prabhjot Krishnamurthy MD Start: 11-27-2016 End: 11-27-2016 Electrocardiogram, complete Prabhjot Krishnamurthy MD Start: 11-27-2016 End: 11-27-2016 Follow Up Appt 6 months Prabhjot Krishnamurthy MD Start: 11-27-2016 End: 11-27-2016 Magnesium Prabhjot Krishnamurthy MD Start: 11-27-2016 End: 11-27-2016 PFM Prabhjot Krishnamurthy MD Plan of Treatment Date Care Activity Detail Author Start: 07-02-2017 End: 07-02-2017 Appointment Appointment [facility] Work Phone: Start: 11-27-2016 End: 11-27-2016 Appointment Appointment [facility] Work Phone: Start: 11-27-2016 End: 11-28-2016 Digoxin *Digoxin (Drug Assay) [facility] Work Phone: Start: 11-27-2016 End: 11-27-2016 Electrocardiogram, complete EKG (In office) [facility] Work Phone: Start: 11-27-2016 End: 11-27-2016 Follow Up Appt 6 months Follow Up Appt 6 months [facility] Work Phone: Start: 11-27-2016 End: 11-27-2016 Magnesium *Magnesium [facility] Work Phone: Start: 11-27-2016 End: 11-27-2016 PFM PFM [facility] Work Phone: Additional Source Comments FOR RECORDS PERTAINING TO PATIENTS WHO ARE OR HAVE BEEN ENROLLED IN A CHEMICAL DEPENDENCY/SUBSTANCEABUSE PROGRAM, SOME INFORMATION MAY BE OMITTED. This clinical summary was aggregated from multiple sources. Caution should be exercised in using it in the provision of clinical care. This summary normalizes information from multiple sources, and as a consequence, information in this document may materially change the coding, format and clinical context of patient data. In addition, data may be omitted in some cases. CLINICAL DECISIONS SHOULD BE BASED ON THE PRIMARY CLINICAL RECORDS. [employer] provides no warranty or guarantee of the accuracy or completeness of information in this document.
== END | disposition home or self-care (01) ==
LOC: PSN 09:58
PROVIDERS: PCP Family Medicine; Referring Provider Nurse Practitioner Gerontology; Visit Provider Nurse Practitioner Gerontology
DX: I47.10 Supraventricular tachycardia, unspecified (principal)
CPT/HCPCS: 93225; 93226

== ENCOUNTER 2023-05-05 14:41 | Observation (INO) | payer MEDICARE, SELFPAY ==
--- NOTE | 2023-04-27 09:35 | RAD_ITS ---
STUDY: X-RAY CHEST REASON FOR EXAM: Female, 78 years old. for PPM implant on 05/04/23 TECHNIQUE: PA and lateral COMPARISON: None. FINDINGS: The lungs are clear and expanded. Tiny calcified granuloma in left lower lobe. There is no demonstrated pleural abnormality. Normal size heart. Normal mediastinum and [place]. Normal visualized pulmonary arteries. Mildly calcified aortic arch and descending thoracic aorta. Dorsal spine demonstrates mild scoliosis and degenerative change. Normal visualized ribs, clavicles, and shoulders. There is no demonstrated abnormality of the visualized soft tissue structures of the upper abdomen. RAD/Chest PA and Lateral IMPRESSION: No acute cardiopulmonary pathology. Electronically Signed: Olvin Brown MD at 19:48 EST ,
[2023-04-27 09:45] LABS: Mucous, Urine 0 SEEN /hpf (<or=2+); Red Blood Cells-Urine 0 SEEN /hpf (0-5)
[2023-04-27 10:52] LABS: Color, Urine Yellow (Yellow); Glucose, Dipstick Normal (Normal); Ketone-Dipstick Negative (Negative); Leukocyte Esterase-Dipstick 25 /ul (Negative); Nitrite-Dipstick Negative (Negative); Occult Blood-Urine Negative /ul (Negative); Protein-Dipstick 15 mg/dl (Negative); Specific Gravity, Urine 1.015 (1.002-1.030); Urine Bilirubin Dipstick Negative (Negative); Urine Clarity Sl. Cloudy (Clear); Urine Urobilinogen Normal (Normal)
[2023-04-27 10:54] LABS: Hematocrit 44.9 % (37-47); Hemoglobin 14.3 g/dL (12.0-15.0); Mean Corp Hgb Conc 31.8 g/dL (32-36); Mean Corpuscular Hgb 29.6 pg (27.0-32.0); Platelet Count 272 K/mm3 (150-450); RBC Distribution Width CV 13.8 % (11.6-14.6); RBC Distribution Width SD 46.8 fl (35.1-43.9); Red Blood Count 4.83 M/mm3 (4.2-5.4); White Blood Count 7.7 K/mm3 (4.4-11.0)
[2023-04-27 10:56] LABS: Prothrombin Time (Protime)PT. 12.8 SECONDS (11.7-14.9)
[2023-04-27 10:58] LABS: White Blood Cells 5-10 SEEN /hpf (0-5)
[2023-04-27 10:59] LABS: Bacteria 1+ /hpf (None Seen); Squamous Epithelial Cells - UA 0-5 SEEN /hpf (5-10); Transitional Epithelial - Ur 0-5 SEEN /hpf (0-5)
[2023-04-27 11:45] LABS: Anion Gap 7 (5-15); BUN 19 mg/dL (7-18); BUN/Creat Ratio 18.4 RATIO (10-20); Calcium,Total 9.4 mg/dL (8.5-10.1); Chloride 110 mmol/L (98-107); Creatinine, Serum 1.03 mg/dL (0.55-1.02); EST Glomerular Filtration Rate 55 mL/min (>60); Est Glom Filt Rate - Afr Amer 67 mL/min (>60); Glucose 93 mg/dL (74-106); Potassium 3.8 mmol/L (3.5-5.1); Sodium Level 142 mmol/L (136-145)
[2023-05-01 08:11] VITALS: BMI 34.4
[2023-05-05] VITALS (9 sets, daily range): BP systolic 142–162; BP diastolic 51–85; PULSE 59–71; RESP 16; TEMP 36–36.7; O2SAT 92–98
--- OUTSIDE RECORDS SUMMARY | 2023-05-05 11:03 | XMS RPT_ITS | CCD ---
Author Name Unknown Address [address] [place] [address] Organization [facility] Care Team Providers Care Bottle Inspector Name Role Phone Prabhjot Krishnamurthy MD Unavailable [...] TBEC One tablet by mouth daily ASPIRIN [id number] Rani Mar RN digoxin 0.125 mg oral tablet (7 sources) Cardiac Glycoside Start: 11-26-2016 take 1 tablet by mouth once daily DIGOXIN 125 MCG TABS One tablet by mouth daily DIGOXIN [id number] Rani Mar RN estradiol 0.1 mg/ml vaginal cream (7 sources) Estrogen Start: 11-26-2016 ESTRACE 0.1 MG/GM CREA Take as directed ESTRADIOL [id number] Rani Mar RN Problems Problem Classification Problem [...] Heart rate 69 /min Prabhjot Krishnamurthy MD [facility] Work Phone: 11-27-2016 10:06-0400 BMI (Body Mass Index) 34.38 kg/m2 Harumi DeFinis [facility] Work Phone: 11-27-2016 10:06-0400 BP Diastolic 80 mm[Hg] Harumi DeFinis [facility] Work Phone: 11-27-2016 10:06-0400 BP Systolic 118 mm[Hg] Harumi DeFinis [facility] Work Phone: 11-27-2016 10:06-0400 Height 167.64 cm Harumi DeFinis [facility] Work Phone: 11-27-2016 10:06-0400 Pulse (Heart Rate) 64 /min Harumi DeFinis [facility] Work Phone: 11-27-2016 10:06-0400 Respiratory Rate 16 /min Harumi DeFinis [facility] Work Phone: 11-27-2016 10:06-0400 Weight 96.62 kg Harumi DeFinis [facility] Work Phone: Procedures Date Procedure [...] Author Start: 07-02-2017 End: 07-02-2017 Appointment Appointment [facility] Work Phone: Start: 11-27-2016 End: 11-27-2016 Appointment Appointment [facility] Work Phone: Start: 11-27-2016 End: 11-28-2016 Digoxin *Digoxin (Drug Assay) [facility] Work Phone: Start: 11-27-2016 End: 11-27-2016 Electrocardiogram, complete EKG (In office) [facility] Work Phone: Start: 11-27-2016 End: 11-27-2016 Follow Up Appt 6 months Follow Up Appt 6 months [facility] Work Phone: Start: 11-27-2016 End: 11-27-2016 Magnesium *Magnesium [facility] Work Phone: Start: 11-27-2016 End: 11-27-2016 PFM PFM [facility] Work Phone: Additional Source Comments [...] BE BASED ON THE PRIMARY CLINICAL RECORDS. [employer] provides no warranty or guarantee of the accuracy or completeness of information in this document.
--- NOTE | 2023-05-05 14:25 | CL.IE_ITS ---
Patient: KEERTHI CONDE Study Date: 05/05/2023 Performing: Constantine Mccarty MD : 1945 Age: 78 Gender: female PROCEDURES PERFORMED [id number])INITIAL PACER INSERT+DUAL LEADS INDICATIONS Sinoatrial node dysfunction/Sick sinus syndrome PROCEDURE DETAILS The patient was brought to the Catheterization Lab in the postabsorptive nonsedated state. Informed consent was obtained prior to the procedure. Local anesthetic was given subcutaneously to the left upper chest area with Lidocaine 2%. Access was achieved and a guidewire was advanced into the left subclavian vein. PPM ventricular lead was inserted / positioned to right ventricular apex. The sheath was then removed. PPM ventricular lead testing performed. PPM ventricular lead testing performed. PPM atrial lead was inserted / positioned to the right atrial appendage. The sheath was then removed. The wire was then removed. PPM atrial lead testing performed. The Atrial lead sutured in place with 2-0 Silk. The Ventricular PM lead sutured in place with 2-0 Silk. Device pocket was irrigated with antibiotic. PPM generator was attached to the lead(s) and inserted into the pocket. Subcutaneous closure was completed with 3-0 Vicryl. Skin closure was completed with 4-0 Vicryl. Steri-strips applied to left subclavicular incision. The patient tolerated the procedure well. Estimated Blood Loss: 15 ml's IMPLANTED / EX-PLANTED DEVICES IMPLANTED DEVICE(S): PPM Generator - Garment Fitter: [employer], Model # [id number], Serial # [id number] PPM Atrial lead - Garment Fitter: [employer], Model # [id number] , Serial # [id number] PPM Ventricular lead - Garment Fitter: [employer], Model # [id number] , Serial # [id number] DEVICE PARAMETERS ATRIAL LEAD PARAMETERS: P wave- 3.2 (mV) threshold- 0.9 (V) impedence- 454 (OHMS) VENTRICULAR LEAD PARAMETERS: R wave- 7.2 (mV) threshold- 0.7 (V) impedence- 919 (OHMS) DEVICE PARAMETERS: Mode- DDDR Lower rate- 60 Upper rate- 120 CONCLUSIONS / RECOMMENDATIONS Device Conclusions: Successful implantation of a dual chamber pacemaker Device Recommendations: Follow up with Primary Care Physician PROCEDURE MEDICATIONS Versed 1 mg IV Fentanyl 50 mcg IV Versed 1 mg IV Versed 1 mg IV Oxygen: 2 L/min via nasal cannula Antibiotic given in appropriate timeframe. Ancef 2 Gm IV @ 05/05/2023 13:06:03 Signed By Constantine Mccarty MD On 05/05/2023 14:25:32 Constantine Mccarty MD
--- OUTSIDE RECORDS SUMMARY | 2023-05-05 15:31 | XMS RPT_ITS | CCD ---
Author Name Unknown Address [address] [place] [address] Organization [facility] Care Team Providers Care Finish Inspector Name Role Phone Prabhjot Krishnamurthy MD Unavailable Cliff Núñez Unavailable Unavailable ROCCO Mar, Rani Santiago Unavailable Unavailable ROCCO Mar, Rani Santiago Unavailable Unavailable Cliff Núñez Unavailable Unavailable Prabhjot Krishnamurthy MD Unavailable [phone] ROCCO Palacios, Kalee Santiago Unavailable Unavailabl e Medications Completed/Discontinued Medications Medication Drug Class(es) Dates Sig (Normalized) Sig (Original) aspirin 81 mg delayed release oral tablet (7 sources) Nonsteroidal Anti-inflammatory Drug Start: 11-26-2016 take 1 tablet by mouth once daily ASPIRIN EC 81 MG TBEC One tablet by mouth daily ASPIRIN [id number] Rani Mar RN digoxin 0.125 mg oral tablet (7 sources) Cardiac Glycoside Start: 11-26-2016 take 1 tablet by mouth once daily DIGOXIN 125 MCG TABS One tablet by mouth daily DIGOXIN [id number] Rani Mar RN estradiol 0.1 mg/ml vaginal cream (7 sources) Estrogen Start: 11-26-2016 ESTRACE 0.1 MG/GM CREA Take as directed ESTRADIOL [id number] Rani Mar RN Problems Problem Classification Problem [...] 10:06-0400 BP Systolic 118 mm[Hg] Harumi DeFinis [facility] Work Phone: 11-27-2016 10:06-0400 Height 167.64 cm Harumi DeFinis [facility] Work Phone: 11-27-2016 10:06-0400 Pulse (Heart Rate) 64 /min Harumi DeFinis [facility] Work Phone: 11-27-2016 10:06-0400 Respiratory Rate 16 /min Harumi DeFinis [facility] Work Phone: 11-27-2016 10:06-0400 Weight 96.62 kg Harumi DeFinis [facility] Work Phone: Procedures Date Procedure [...] Author Start: 07-02-2017 End: 07-02-2017 Appointment Appointment [facility] Work Phone: Start: 11-27-2016 End: 11-27-2016 Appointment Appointment [facility] Work Phone: Start: 11-27-2016 End: 11-28-2016 Digoxin *Digoxin (Drug Assay) [facility] Work Phone: Start: 11-27-2016 End: 11-27-2016 Electrocardiogram, complete EKG (In office) [facility] Work Phone: Start: 11-27-2016 End: 11-27-2016 Follow Up Appt 6 months Follow Up Appt 6 months [facility] Work Phone: Start: 11-27-2016 End: 11-27-2016 Magnesium *Magnesium [facility] Work Phone: Start: 11-27-2016 End: 11-27-2016 PFM PFM [facility] Work Phone: Additional Source Comments [...] BE BASED ON THE PRIMARY CLINICAL RECORDS. [employer] provides no warranty or guarantee of the accuracy or completeness of information in this document.
[2023-05-05] MEDS: Acetaminophen 325 MG Tablet 650 MG PO (19:57)
[2023-05-05] MEDS: Flecainide 100 MG Tablet 50 MG PO (21:04)
[2023-05-06 03:07] VITALS: BP 149/68; PULSE 63; RESP 16; TEMP 36.4; O2SAT 92
[2023-05-06] MEDS: Acetaminophen 325 MG Tablet 650 MG PO ×2 (03:48→09:16)
--- NOTE | 2023-05-06 04:12 | RAD_ITS ---
INDICATION: Post permanant ICD/Pacemaker -- inspiration/expiration. Arms Down. Wet read to MD EXAMINATION/TECHNIQUE: X-RAY - XR Chest 3 Views COMPARISON: None. FINDINGS: LINES/DEVICES: Cardiac pacer with 2 leads. LUNGS: Mild interstitial edema. No focal infiltrate and no evidence of a pleural effusion or a pneumothorax. MEDIASTINUM AND CARDIOVASCULAR STRUCTURES: Mild cardiomegaly. Mediastinum is unremarkable. BONES AND SOFT TISSUES: No acute abnormality. RAD/Chest 3 View IMPRESSION: 1. No evidence of a pneumothorax. 2. Mild interstitial edema. Electronically Signed: Olvin Bah DO at 4:29 EST ,
--- NOTE | 2023-05-06 08:14 | PCM.PN.CARD ---
Subjective Subjective Patient seen and evaluated. She did well overnight. Minimal pain. Objective Data Vital Signs: Vital Signs Temp Pulse Resp BP Pulse Ox O2 Del Method 97.6 F L 63 16 149/68 H 92 Room Air 05/06/23 03:07 05/06/23 03:07 05/06/23 03:07 05/06/23 03:07 05/06/23 03:07 05/06/23 03:59 Oxygen Delivery Method Room Air Weight: 207 lb Body Mass Index (BMI) 34.4 Intake & Output: Intake and Output for Last 24 Hours 05/04/23 05/05/23 05/06/23 23:59 23:59 23:59 Intake Total 440 / 440 440 / 440 Output Total 300 / 300 300 / 300 Balance 140 / 140 140 / 140 Lab / Micro Data 04/27/23 09:44 04/27/23 09:44 Cardiology Labs/Tests Rhythm: EKG: ECHO: Stress Test: Cardiac Cath: PCI: CT Surgery: Holter monitor: EPS: PPM: CXR: Chest CT Scan: Radiography Diagnostic Testing: Radiology Impression Chest X-Ray 05/06/23 04:12 IMPRESSION: 1. No evidence of a pneumothorax. 2. Mild interstitial edema. Electronically Signed: Olvin BahDO at 4:29 EST , Physical Exam Const alert, oriented x3 and no apparent distress General Appearance: cooperative HEENT hearing grossly normal bilaterally Head and Scalp: atraumatic Eyes EOMs intact bilaterally Neck General: normal visual inspection Chest inspection of chest normal and palpation of chest normal Resp normal respiratory effort Auscultation: clear to auscultation bilaterally Cardio regular rate, regular rhythm, S1 normal heart sound and S2 normal heart sound Jugular Venous Distention: JVD GI normal to inspection, nondistended, normoactive bowel sounds Extremity normal capillary refill and no pedal edema Peripheral Pulses: Yes pulses 2+ throughout and femoral pulses present Skin no rashes or lesions noted Neuro oriented x3 and CN's II-XII intact bilaterally Psych Appearance: grossly normal and appropriate Assessment & Plan Assessment/Plan (1) Sick sinus syndrome: PLAN: Patient has a history of sick sinus syndrome. She is status post pacemaker placement yesterday. She is doing well. Chest x-ray today demonstrated adequate positioning of the pacer leads with no evidence of pneumothorax. Patient will be discharged for outpatient follow-up in the device clinic.
--- NOTE | 2023-05-06 08:16 | DCINST_ITS ---
Discharge Instructions Diet Discharge Diet: No restrictions (as you feel able. No excessive stretching. No lifting your arm over your head (keep elbow below shoulder level) until seen for your pacemaker check. Do not lift your elbow away from your side until you are seen for your first visit. Keep the arm sling on if it helps remind you not to lift your arm.) Activity Discharge Activity: May Not Drive May shower in (days): 2 Additional Activity Instructions:: May shower or bathe on [day 3]. Do not scrub the incision or soak in the tub. Just wash with soap and let the water run over the incision. Gently pat dry with towel. Medications: Take your pain medication as directed. Refer to your discharge instruction sheet for a list of medications you are to take. Dressing / Incision Call your doctor if your incision/area has: Continuous Slow Oozing, Sudden Increased Bleeding, Increased Pain/ Swelling, Increased Redness, Foul Smelling Discharge and Swelling at the incision site Call your doctor if you observe: Fever of 101 or Higher, Shortness of breath, Dizziness, Fainting spells, Swelling in the ankles, Chest pain, Prolonged hiccupping and Increased palpitations (irregular heartbeat) Suture Line Care: Avoid Pulling/Pushing and Avoid Pinching/Bending Cleanse incision/area with: Keep Dressing Clean & Dry Additional Dressing/Incision Instructions:: When dressing is removed, wash and dry incision. Keep covered with a light bandage if it is rubbing against your clothing. Do not cover the incision with an airtight bandage. Change the bandage daily. Do not remove steri strips. The strips will fall off on their own. Follow Up Care Please Follow Up With: Constantine Mccarty MD When: Pacer follow-up on May 12 at 10 AM Test Results: Test results from this visit will be discussed in further detail at your follow- up appointment, if applicable. Discharge Plan Admission Admit Date/Time: 05/05/23 14:41 Attending Provider: Constantine Mccarty Primary Care Provider: Donny Herndon Discharge Orders/Prescriptions Prescriptions: No Action estradiol [Estrace] 0.01 % (0.1 mg/gram) cream 1 g VAGINAL 2XW rosuvastatin 20 mg tablet 20 mg PO DAILY Centrum Silver Women 8 mg iron-400 mcg-300 mcg tablet 1 tab PO DAILY ascorbic acid (vitamin C) 1,000 mg tablet 1 g PO DAILY vitamin B complex Tablet 1 tab PO DAILY turmeric root extract 1,053 mg tablet 1,053 mg PO BID magnesium glycinate 100 mg magnesium capsule 400 mg PO DAILY amlodipine 2.5 mg tablet 2.5 mg PO DAILY metoprolol succinate 25 mg tablet extended release 24 hr 25 mg PO QDAY Qty: 30 11RF cholecalciferol (vitamin D3) 5,000 UNIT tablet 5,000 unit PO DAILY aspirin 81 mg tablet,delayed release (DR/EC) 81 mg PO QDAY coenzyme Q10 [Co Q-10] 100 mg capsule 100 mg PO QDAY Qty: 1 0RF flecainide 50 mg tablet 50 mg PO Q12H Referrals / Follow Up: Donny Herndon MD [Primary Care Provider] - Disposition Disposition (needs filled in before D/C Order can be placed): Home, Self Care
[2023-05-06 08:55] VITALS: BP 170/71; PULSE 68; RESP 16; TEMP 36.4; O2SAT 96
[2023-05-06] MEDS: Aspirin E.C. 81 MG Tablet PO (09:11)
[2023-05-06] MEDS: amLODIPine 2.5 MG Tablet PO (09:12)
[2023-05-06] MEDS: Flecainide 100 MG Tablet 50 MG PO (09:13)
[2023-05-06 09:15] VITALS: PULSE 69
[2023-05-06] MEDS: Metoprolol(XL)Succ 25 MG Tablet PO (09:15)
[2023-05-06 09:50] VITALS: BP 139/89; PULSE 73
--- NOTE | 2023-05-06 10:39 | PHA.DC.MR.R ---
Pharmacy [place] Med Reconciliation Pharmacy Service has performed discharge medication reconciliation for this patient. The patient's discharge medication list was reviewed for discrepancies and discrepancies were resolved. Medications at Discharge Home Medications aspirin 81 mg tablet,delayed release 81 mg PO QDAY 11/25/17 coenzyme Q10 100 mg capsule (Co Q-10) 100 mg PO QDAY #1 cap 11/25/17 cholecalciferol (vitamin D3) 125 mcg (5,000 unit) tablet 5,000 unit PO DAILY 02/03/19 ascorbic acid (vitamin C) 1,000 mg tablet 1 g PO DAILY 07/15/21 estradiol 0.01% (0.1 mg/gram) vaginal cream (Estrace) 1 g vaginal 2XW 07/15/21 [id number] 8 mg-folic 400 mcg-K 50 mcg-lutein 300 mcg tablet (Centrum Silver Women) 1 tab PO DAILY 07/15/21 rosuvastatin 20 mg tablet 20 mg PO DAILY 07/15/21 turmeric root extract 1,053 mg tablet 1,053 mg PO BID 02/17/22 vitamin B complex 1 tab PO DAILY 02/17/22 amlodipine 2.5 mg tablet 2.5 mg PO DAILY 09/29/22 magnesium glycinate 400 mg PO DAILY 09/29/22 metoprolol succinate 25 mg tablet,extended release 24 hr 25 mg PO QDAY #30 tabs 04/01/23 flecainide 50 mg tablet 50 mg PO Q12H 04/23/23
--- NOTE | 2023-05-06 10:56 | CASEMGMT ---
Patient has order for discharge. RN CM in to discuss needs at discharge. Patient denies needs or help at discharge. Patient had no further questions or concerns.
== END 2023-05-06 08:16 | disposition home or self-care (01) ==
LOC: PCU 15:05
PROVIDERS: Nurse Practitioner Gerontology; Physician Assistant Medical; Admitting Provider Internal Medicine Cardiovascular Disease; PCP Family Medicine; Referring Provider Internal Medicine Cardiovascular Disease; Visit Provider Internal Medicine Cardiovascular Disease
DX: Z45.018 Encounter for adjustment and management of other part of cardiac pacemaker (principal); I49.5 Sick sinus syndrome; N18.30 Chronic kidney disease, stage 3 unspecified; I12.9 Hypertensive chronic kidney disease with stage 1 through stage 4 chronic kidney disease, or unspecified chronic kidney disease; E78.5 Hyperlipidemia, unspecified; I44.0 Atrioventricular block, first degree; Z79.82 Long term (current) use of aspirin; Z79.899 Other long term (current) drug therapy; K44.9 Diaphragmatic hernia without obstruction or gangrene; K21.9 Gastro-esophageal reflux disease without esophagitis; I47.19 Other supraventricular tachycardia; Z87.891 Personal history of nicotine dependence
CPT/HCPCS: 33208; 36415; 71046; 71047; 80048; 81001; 85027; 85610; 99152; 99153; 99221; J7040; J7050; C1894; G0378

== ENCOUNTER → 2023-06-04 | Outpatient (CLI) | payer MEDICARE, SELFPAY ==
--- OUTSIDE RECORDS SUMMARY | 2023-06-04 11:20 | XMS RPT_ITS | CCD ---
Author Name Unknown Address [address] [place] [address] Organization [facility] Care Team Providers Care Ordnance Technician Name Role Phone Prabhjot Krishnamurthy MD Unavailable Cliff Núñez Unavailable Unavailable ROCCO Mar, Rani Santiago Unavailable Unavailable ROCCO Mar, Rani Santiago Unavailable Unavailable Cliff Núñez Unavailable Unavailable Prabhjot Krishnamurthy MD Unavailable [phone] ROCCO Palacios, Kalee Santiago Unavailable Unavailabl e Medications Completed/Discontinued Medications Medication Drug Class(es) Dates Sig (Normalized) Sig (Original) aspirin 81 mg delayed release oral tablet (7 sources) Nonsteroidal Anti-inflammatory Drug Start: 11-26-2016 take 1 tablet by mouth once daily ASPIRIN EC 81 MG TBEC One tablet by mouth daily ASPIRIN [id number] Rani Mar RN digoxin 0.125 mg oral tablet (7 sources) Cardiac Glycoside Start: 11-26-2016 take 1 tablet by mouth once daily DIGOXIN 125 MCG TABS One tablet by mouth daily DIGOXIN [id number] Rani Mar RN estradiol 0.1 mg/ml vaginal cream (7 sources) Estrogen Start: 11-26-2016 ESTRACE 0.1 MG/GM CREA Take as directed ESTRADIOL [id number] Rani Mar RN Problems Problem Classification Problem [...] 10:06-0400 BP Diastolic 80 mm[Hg] Harumi DeFinis [facility] Work Phone: 11-27-2016 10:06-0400 BP Systolic 118 mm[Hg] Harumi DeFinis [facility] Work Phone: 11-27-2016 10:06-0400 Height 167.64 cm Harumi DeFinis [facility] Work Phone: 11-27-2016 10:06-0400 Pulse [...] Author Start: 07-02-2017 End: 07-02-2017 Appointment Appointment [facility] Work Phone: Start: 11-27-2016 End: 11-27-2016 Appointment Appointment [facility] Work Phone: Start: 11-27-2016 End: 11-28-2016 Digoxin *Digoxin (Drug Assay) [facility] Work Phone: Start: 11-27-2016 End: 11-27-2016 Electrocardiogram, complete EKG (In office) [facility] Work Phone: Start: 11-27-2016 End: 11-27-2016 Follow Up Appt 6 months Follow Up Appt 6 months [facility] Work Phone: Start: 11-27-2016 End: 11-27-2016 Magnesium *Magnesium [facility] Work Phone: Start: 11-27-2016 End: [...] BE BASED ON THE PRIMARY CLINICAL RECORDS. [employer] provides no warranty or guarantee of the accuracy or completeness of information in this document.
--- NOTE | 2023-06-04 11:40 | RAD_ITS ---
STUDY: X-RAY CHEST REASON FOR EXAM: Female, 78 years old. CXR 05/06/23 mild interstitial edema, SOB worse TECHNIQUE: Frontal and lateral views of the chest. COMPARISON: 05/06/2023. FINDINGS: There is hyperinflation of the lungs consistent with chronic obstructive lung disease (COPD). No infiltrates or effusions. There is no demonstrated pleural abnormality. Normal size heart. Pacemaker is seen with leads terminating in the right atrium and right ventricle. Normal mediastinum and [place]. Normal visualized pulmonary arteries. Normal visualized aortic arch and descending thoracic aorta. Normal visualized thoracic spine. Normal visualized ribs, clavicles, and shoulders. There is no demonstrated abnormality of the visualized soft tissue structures of the upper abdomen. RAD/Chest PA and Lateral IMPRESSION: There are findings consistent with COPD. There is no evidence of acute chest disease. Electronically Signed: Jer Nation MD at 21:51 EST ,
[2023-06-04 12:03] LABS: Absolute Lymphocyte Count 1.57 X10^3/uL (0.83-4.51); Absolute Neutrophil Count 6.4 X10^3/uL (2.0-7.7); Basophil# 0.03 X10^3/uL; Basophil% 0.3 % (0-1); Eosinophil# 0.23 X10^3/uL; Eosinophils% 2.6 % (0-5); Hematocrit 41.3 % (37-47); Hemoglobin 13.3 g/dL (12.0-15.0); Lymphocyte # 1.57 X10^3/ul (0.83-4.51); Mean Corp Hgb Conc 32.2 g/dL (32-36); Mean Corpuscular Hgb 29.9 pg (27.0-32.0); Mean Corpuscular Volume 92.8 fL (81-99); Mean Platelet Vol. 9.5 fl (6.2-12.0); Monocyte# 0.52 X10^3/uL; NRBC Flagged by Analyzer 0 % (0-5); Neutrophil # 6.37 X10^3/uL (2.7-7.7); Platelet Count 266 K/mm3 (150-450); RBC Distribution Width CV 14.2 % (11.6-14.6); RBC Distribution Width SD 47.8 fl (35.1-43.9); Red Blood Count 4.45 M/mm3 (4.2-5.4); White Blood Count 8.7 K/mm3 (4.4-11.0)
[2023-06-04 12:26] LABS: BNP,B-Type NATRIURETIC PEPTIDE 493.5 pg/mL (0-100)
[2023-06-04 12:32] LABS: ALB/GLOB Ratio 1.1 RATIO (0.9-2.4); AST(SGOT) 17 U/L (15-37); Alanine Aminotransfer ALT/SGPT 20 U/L (13-56); Albumin, Serum 3.6 g/dL (3.2-5.0); Alkaline Phosphatase 108 U/L (45-117); Anion Gap 3 (5-15); BUN 20 mg/dL (7-18); Calcium,Total 9.2 mg/dL (8.5-10.1); Chloride 111 mmol/L (98-107); Creatinine, Serum 1.11 mg/dL (0.55-1.02); EST Glomerular Filtration Rate 51 mL/min (>60); Est Glom Filt Rate - Afr Amer 61 mL/min (>60); Globulin 3.4 g/dL (2.2-4.2); Glucose 102 mg/dL (74-106); Potassium 4.2 mmol/L (3.5-5.1); Sodium Level 141 mmol/L (136-145)
== END | disposition home or self-care (01) ==
PROVIDERS: PCP Family Medicine; Referring Provider Nurse Practitioner Gerontology; Visit Provider Nurse Practitioner Gerontology
DX: R06.01 Orthopnea (principal); R06.02 Shortness of breath; Z95.0 Presence of cardiac pacemaker; I10 Essential (primary) hypertension; R42 Dizziness and giddiness
CPT/HCPCS: 36415; 71046; 80053; 83880; 85025

== ENCOUNTER → 2023-06-10 | Outpatient (CLI) | payer MEDICARE, SELFPAY ==
[2023-06-10 11:13] LABS: Anion Gap 7 (5-15); BUN 26 mg/dL (7-18); BUN/Creat Ratio 26.4 RATIO (10-20); Calcium,Total 9.7 mg/dL (8.5-10.1); Chloride 107 mmol/L (98-107); Creatinine, Serum 0.98 mg/dL (0.55-1.02); EST Glomerular Filtration Rate 58 mL/min (>60); Est Glom Filt Rate - Afr Amer 70 mL/min (>60); Glucose 98 mg/dL (74-106); Potassium 3.3 mmol/L (3.5-5.1); Sodium Level 140 mmol/L (136-145)
--- OUTSIDE RECORDS SUMMARY | 2023-06-10 11:13 | XMS RPT_ITS | CCD ---
Author Name Unknown Address [address] [place] [address] Organization [facility] Care Team Providers Care Supervisor [employer] Name Role Phone Prabhjot Krishnamurthy MD Unavailable [phone] Cliff Núñez Unavailable Unavailable ROCCO Mar, Rani Santiago Unavailable Unavailable ROCCO Mar, Rani Santiago Unavailable Unavailable Cliff Núñez Unavailable Unavailable Prabhjot Krishnamurthy MD Unavailable [phone] ROCCO Palacios, Kalee Santiago Unavailable Unavailabl e Medications Completed/Discontinued Medications Medication Drug Class(es) Dates Sig (Normalized) Sig (Original) aspirin 81 mg delayed release oral tablet (7 sources) Nonsteroidal Anti-inflammatory Drug Start: 11-26-2016 take 1 tablet by mouth once daily ASPIRIN EC 81 MG TBEC One tablet by mouth daily ASPIRIN [id number] Rani Mar RN digoxin 0.125 mg oral tablet (7 sources) Cardiac Glycoside Start: 11-26-2016 take 1 tablet by mouth once daily DIGOXIN 125 MCG TABS One tablet by mouth daily DIGOXIN [id number] Rani Mar RN estradiol 0.1 mg/ml vaginal cream (7 sources) Estrogen Start: 11-26-2016 ESTRACE 0.1 MG/GM CREA Take as directed ESTRADIOL [id number] Rani Mar RN Problems Problem Classification Problem [...] Time Vital Sign Value Performing Clinician Pratima nela 11-27-2016 13:52-0400 Heart rate 69 /min Prabhjot Krishnamurthy MD [facility] Work Phone: 11-27-2016 10:06-0400 BMI (Body Mass Index) 34.38 kg/m2 Harumi DeFinis [facility] Work Phone: 11-27-2016 10:06-0400 BP Diastolic 80 mm[Hg] Harumi DeFinis [facility] Work Phone: 11-27-2016 10:06-0400 BP Systolic 118 mm[Hg] Harumi DeFinis [facility] Work Phone: 11-27-2016 10:06-0400 Height 167.64 cm Harumi DeFinis [facility] Work Phone: 11-27-2016 10:06-0400 Pulse [...] Author Start: 07-02-2017 End: 07-02-2017 Appointment Appointment [facility] Work Phone: Start: 11-27-2016 End: 11-27-2016 Appointment Appointment [facility] Work Phone: Start: 11-27-2016 End: 11-28-2016 Digoxin *Digoxin (Drug Assay) [facility] Work Phone: Start: 11-27-2016 End: 11-27-2016 Electrocardiogram, complete EKG (In office) [facility] Work Phone: Start: 11-27-2016 End: 11-27-2016 Follow Up Appt 6 months Follow Up Appt 6 months [facility] Work Phone: Start: 11-27-2016 End: 11-27-2016 Magnesium *Magnesium [facility] Work Phone: Start: 11-27-2016 End: [...] BE BASED ON THE PRIMARY CLINICAL RECORDS. [employer] provides no warranty or guarantee of the accuracy or completeness of information in this document.
== END | disposition home or self-care (01) ==
LOC: MFPLAB 09:09
PROVIDERS: Nurse Practitioner Gerontology; PCP Family Medicine; Visit Provider Family Medicine
DX: R06.00 Dyspnea, unspecified (principal)
CPT/HCPCS: 36415; 80048

== ENCOUNTER → 2023-06-15 | Outpatient (CLI) | payer MEDICARE, SELFPAY ==
[2023-06-15 13:10] LABS: Anion Gap 6 (5-15); BUN 20 mg/dL (7-18); BUN/Creat Ratio 21.8 RATIO (10-20); Calcium,Total 9.9 mg/dL (8.5-10.1); Chloride 111 mmol/L (98-107); Creatinine, Serum 0.92 mg/dL (0.55-1.02); EST Glomerular Filtration Rate 63 mL/min (>60); Est Glom Filt Rate - Afr Amer 76 mL/min (>60); Glucose 91 mg/dL (74-106); Potassium 3.9 mmol/L (3.5-5.1); Sodium Level 140 mmol/L (136-145)
== END | disposition home or self-care (01) ==
LOC: MFPLAB 09:20
PROVIDERS: Nurse Practitioner Gerontology; PCP Family Medicine; Visit Provider Family Medicine
DX: N18.30 Chronic kidney disease, stage 3 unspecified (principal); E87.6 Hypokalemia
CPT/HCPCS: 36415; 80048

== ENCOUNTER → 2023-06-18 | Outpatient (CLI) | payer MEDICARE, SELFPAY ==
--- OUTSIDE RECORDS SUMMARY | 2023-06-18 11:02 | XMS RPT_ITS | CCD ---
Author Name Unknown Address [address] [place] [address] Organization [facility] Care Team Providers Care Supervisor Dry Cleaning Name Role Phone Prabhjot Krishnamurthy MD Unavailable [...] TBEC One tablet by mouth daily ASPIRIN [id number] Rani Mar RN digoxin 0.125 mg oral tablet (7 sources) Cardiac Glycoside Start: 11-26-2016 take 1 tablet by mouth once daily DIGOXIN 125 MCG TABS One tablet by mouth daily DIGOXIN [id number] Rani Mar RN estradiol 0.1 mg/ml vaginal cream (7 sources) Estrogen Start: 11-26-2016 ESTRACE 0.1 MG/GM CREA Take as directed ESTRADIOL [id number] Rani Mar RN Problems Problem Classification Problem [...] Heart rate 69 /min Prabhjot Krishnamurthy MD [facility] Work Phone: 11-27-2016 10:06-0400 BMI (Body Mass Index) 34.38 kg/m2 Harumi DeFinis [facility] Work Phone: 11-27-2016 10:06-0400 BP Diastolic 80 mm[Hg] Harumi DeFinis [facility] Work Phone: 11-27-2016 10:06-0400 BP Systolic 118 mm[Hg] Harumi DeFinis [facility] Work Phone: 11-27-2016 10:06-0400 Height 167.64 cm Harumi DeFinis [facility] Work Phone: 11-27-2016 10:06-0400 Pulse (Heart Rate) 64 /min Harumi DeFinis [facility] Work Phone: 11-27-2016 10:06-0400 Respiratory Rate 16 /min Harumi DeFinis [facility] Work Phone: 11-27-2016 10:06-0400 Weight 96.62 kg Harumi DeFinis [facility] Work Phone: Procedures Date Procedure [...] Phone: Start: 11-27-2016 End: 11-27-2016 Appointment Appointment [facility] Work Phone: Start: 11-27-2016 End: 11-28-2016 Digoxin *Digoxin (Drug Assay) [facility] Work Phone: Start: 11-27-2016 End: 11-27-2016 Electrocardiogram, complete EKG (In office) [facility] Work Phone: Start: 11-27-2016 End: 11-27-2016 Follow Up Appt 6 months Follow Up Appt 6 months [facility] Work Phone: Start: 11-27-2016 End: 11-27-2016 Magnesium *Magnesium [facility] Work Phone: Start: 11-27-2016 [...] BE BASED ON THE PRIMARY CLINICAL RECORDS. [employer] provides no warranty or guarantee of the accuracy or completeness of information in this document.
[2023-06-18 12:10] LABS: Absolute Lymphocyte Count 1.73 X10^3/uL (0.83-4.51); Absolute Neutrophil Count 4.7 X10^3/uL (2.0-7.7); Basophil# 0.03 X10^3/uL; Basophil% 0.4 % (0-1); Eosinophil# 0.26 X10^3/uL; Eosinophils% 3.6 % (0-5); Hematocrit 42.9 % (37-47); Hemoglobin 13.6 g/dL (12.0-15.0); Lymphocyte # 1.73 X10^3/ul (0.83-4.51); Lymphocyte % 23.9 % (19-41); Mean Corp Hgb Conc 31.7 g/dL (32-36); Mean Corpuscular Hgb 29.5 pg (27.0-32.0); Mean Corpuscular Volume 93.1 fL (81-99); Mean Platelet Vol. 9.9 fl (6.2-12.0); Monocyte# 0.47 X10^3/uL; Monocyte% 6.5 % (0-10); NRBC Flagged by Analyzer 0 % (0-5); Neutrophil # 4.74 X10^3/uL (2.7-7.7); Neutrophil % 65.3 % (47-70); Platelet Count 289 K/mm3 (150-450); RBC Distribution Width CV 13.8 % (11.6-14.6); RBC Distribution Width SD 46.6 fl (35.1-43.9); Red Blood Count 4.61 M/mm3 (4.2-5.4); White Blood Count 7.3 K/mm3 (4.4-11.0)
[2023-06-18 12:45] LABS: Vitamin D,25 Hydroxy 51.9 ng/mL
[2023-06-18 13:15] LABS: AST(SGOT) 20 U/L (15-37); Alanine Aminotransfer ALT/SGPT 21 U/L (13-56); Albumin, Serum 3.8 g/dL (3.2-5.0); Alkaline Phosphatase 105 U/L (45-117); Anion Gap 11 (5-15); BUN 24 mg/dL (7-18); Calcium,Total 9.9 mg/dL (8.5-10.1); Chloride 105 mmol/L (98-107); Cholesterol 169 mg/dL (200); Creatinine, Serum 1.09 mg/dL (0.55-1.02); EST Glomerular Filtration Rate 52 mL/min (>60); Est Glom Filt Rate - Afr Amer 63 mL/min (>60); Globulin 3.7 g/dL (2.2-4.2); Glucose 85 mg/dL (74-106); High Density Lipoprotein 91 mg/dL; Magnesium 2.1 mg/dL (1.6-2.6); Potassium 3.8 mmol/L (3.5-5.1); Protein, Total 7.5 g/dL (6.4-8.2); Sodium Level 141 mmol/L (136-145); Triglycerides 84 mg/dL; Very Low Density Lipoprotein 17 mg/dL (5-40)
[2023-06-18 13:32] LABS: Protein, Urine (Random) 23.9 mg/dL (<11.9); Protein:Creat Ratio 101 mg/g CRE (0-200)
[2023-06-18 14:08] LABS: Hemoglobin A1c 5.2 % (3.8-5.6)
[2023-06-18 15:07] LABS: PTHIN 117.1 pg/mL (18.4-80.1)
== END | disposition home or self-care (01) ==
LOC: MFPLAB 10:38
PROVIDERS: PCP Family Medicine; Visit Provider Family Medicine
DX: N18.30 Chronic kidney disease, stage 3 unspecified (principal); N25.81 Secondary hyperparathyroidism of renal origin; E78.5 Hyperlipidemia, unspecified; R73.02 Impaired glucose tolerance (oral); E83.42 Hypomagnesemia; E55.9 Vitamin D deficiency, unspecified
CPT/HCPCS: 36415; 80053; 80061; 82306; 82570; 83036; 83735; 83970; 84156; 85025

== ENCOUNTER → 2023-06-23 | Outpatient (CLI) | payer MEDICARE, SELFPAY ==
[2023-06-23 10:55] LABS: Anion Gap 5 (5-15); BUN 23 mg/dL (7-18); BUN/Creat Ratio 20.9 RATIO (10-20); Calcium,Total 9.5 mg/dL (8.5-10.1); Chloride 107 mmol/L (98-107); EST Glomerular Filtration Rate 51 mL/min (>60); Est Glom Filt Rate - Afr Amer 62 mL/min (>60); Glucose 81 mg/dL (74-106); Potassium 3.5 mmol/L (3.5-5.1); Sodium Level 142 mmol/L (136-145)
== END | disposition home or self-care (01) ==
LOC: LAB 10:19
PROVIDERS: PCP Family Medicine; Referring Provider Nurse Practitioner Gerontology; Visit Provider Nurse Practitioner Gerontology
DX: R06.00 Dyspnea, unspecified (principal)
CPT/HCPCS: 36415; 80048

== ENCOUNTER → 2023-07-02 | Outpatient (CLI) | payer MEDICARE, SELFPAY ==
--- NOTE | 2023-07-02 12:58 | ECHOD_ITS ---
Reason For Study: DYSPNEA Procedure This was a 2D Doppler, Color Flow transthoracic echocardiogram. Exam performed in department. Left Ventricle Normal LV size. Left ventricular systolic function is normal. The estimated ejection fraction is 60 %. No regional wall motion abnormalities noted. Right Ventricle Normal RV size. ICD or pacer leads identified within the right ventricle. Normal systolic function. Atria The left atrium is moderately enlarged. Normal right atrium. Mitral Valve Normal mitral valve. Mild-Moderate (1-2+) eccentric mitral valve insufficiency. Tricuspid Valve Normal tricuspid valve. Mild to moderate (1-2+) tricuspid valve insufficiency. Pulmonary artery systolic pressure is 35 mmHg. Aortic Valve Trisinus/trileaflet aortic valve. Pulmonic Valve Normal pulmonic valve. Mild (1+) pulmonic valve insufficiency. Great Vessels Normal aortic root. The pulmonary artery is normal size. Inferior vena cava collapse with respiration. Pericardium/Pleural No pericardial effusion. MMode/2D Measurements & Calculations LVIDd: 5.7 cm IVSd: 1.1 cm Ao root diam: 3.3 cm LVIDs: 4.1 cm LVPWd: 1.2 cm RVDd: 4.0 cm FS: 27.8 % LAV(MOD-bp): 91.2 ml LVAd ap4: 36.2 cm2 SV(MOD-sp4): 79.0 ml LAV(MOD-bp) Indexed: 46.6 ml/m2 LVLd ap4: 8.2 cm LAV(MOD-sp2): 71.5 ml EDV(MOD-sp4): 128.4 ml LAV(MOD-sp4): 100.5 ml EDV(sp4-el): 135.6 ml LVAs ap4: 20.5 cm2 LVLs ap4: 6.9 cm ESV(MOD-sp4): 49.4 ml ESV(sp4-el): 51.3 ml EF(MOD-sp4): 61.5 % EF(sp4-el): 62.1 % SV(sp4-el): 84.3 ml LA A4 area: 29.2 cm2 LA dimension(2D): 5.4 cm RA A4 area: 16.1 cm2 TAPSE: 1.9 cm Time Measurements MV dec time: 0.19 sec Doppler Measurements & Calculations MV E max carlitos: 100.5 cm/sec Lat Peak E' Carlitos: 5.2 cm/sec Med Peak E' Carlitos: 4.0 cm/sec MV A max carlitos: 98.6 cm/sec E/E' lat: 19.4 E/E' med: 25.3 MV E/A: 1.0 MV V2 max: 114.1 cm/sec Ao V2 max: 160.7 cm/sec MV max P.2 mmHg MV dec slope: 549.1 cm/sec2 Ao max P.3 mmHg MV V2 mean: 82.7 cm/sec Ao V2 mean: 115.5 cm/sec MV mean P.0 mmHg Ao mean P.1 mmHg MV V2 VTI: 36.1 cm Ao V2 VTI: 38.6 cm AV (velocity ratio): 0.74 LV V1 max: 121.4 cm/sec PA V2 max: 130.2 cm/sec TR max carlitos: 274.9 cm/sec LV V1 max P.9 mmHg PA V2 mean: 95.9 cm/sec TR max P.2 mmHg LV V1 mean P.8 mmHg LV V1 mean: 92.6 cm/sec LV V1 VTI: 28.4 cm ECHO/Echo Complete Interpretation Summary Normal LV size. Left ventricular systolic function is normal. The estimated ejection fraction is 60 %. The left atrium is moderately enlarged. Pulmonary artery systolic pressure is 35 mmHg. Ordering Physician: Elaina Aldridge Referring Physician: Elaina Aldridge Performed By: Suzanna Brown RCS
== END | disposition home or self-care (01) ==
PROVIDERS: PCP Family Medicine; Referring Provider Nurse Practitioner Gerontology; Visit Provider Nurse Practitioner Gerontology
DX: R06.00 Dyspnea, unspecified (principal); I34.0 Nonrheumatic mitral (valve) insufficiency
CPT/HCPCS: 93306

== ENCOUNTER → 2023-09-18 | Outpatient (CLI) | payer MEDICARE, SELFPAY ==
[2023-09-18 13:03] LABS: Albumin, Serum 3.7 g/dL (3.2-5.0); BUN 24 mg/dL (7-18); Calcium,Total 9.7 mg/dL (8.5-10.1); Chloride 108 mmol/L (98-107); EST Glomerular Filtration Rate 57 mL/min (>60); Est Glom Filt Rate - Afr Amer 69 mL/min (>60); Glucose 93 mg/dL (74-106); Phosphorus 2.6 mg/dL (2.5-4.9); Potassium 3.6 mmol/L (3.5-5.1); Sodium Level 142 mmol/L (136-145)
== END | disposition home or self-care (01) ==
LOC: LAB 12:13
PROVIDERS: PCP Family Medicine; Referring Provider Internal Medicine Nephrology; Visit Provider Internal Medicine Nephrology
DX: N18.30 Chronic kidney disease, stage 3 unspecified (principal)
CPT/HCPCS: 36415; 80069

== ENCOUNTER → 2023-10-12 | Outpatient (CLI) | payer MEDICARE, SELFPAY ==
[2023-10-12 09:58] LABS: Mucous, Urine 0 SEEN /hpf (<or=2+); Red Blood Cells-Urine 0 SEEN /hpf (0-5)
[2023-10-12 12:16] LABS: Color, Urine Yellow (Yellow); Glucose, Dipstick Normal (Normal); Ketone-Dipstick Negative (Negative); Leukocyte Esterase-Dipstick 100 /ul (Negative); Nitrite-Dipstick Negative (Negative); Occult Blood-Urine Negative /ul (Negative); Protein-Dipstick Negative (Negative); Specific Gravity, Urine 1.005 (1.002-1.030); Urine Bilirubin Dipstick Negative (Negative); Urine Clarity Sl. Cloudy (Clear); Urine Urobilinogen Normal (Normal)
[2023-10-12 12:20] LABS: Absolute Lymphocyte Count 1.58 X10^3/uL (0.83-4.51); Absolute Neutrophil Count 5.1 X10^3/uL (2.0-7.7); Basophil# 0.04 X10^3/uL; Basophil% 0.5 % (0-1); Eosinophil# 0.26 X10^3/uL; Eosinophils% 3.5 % (0-5); Hematocrit 44.6 % (37-47); Hemoglobin 14.1 g/dL (12.0-15.0); Lymphocyte # 1.58 X10^3/ul (0.83-4.51); Lymphocyte % 21.1 % (19-41); Mean Corp Hgb Conc 31.6 g/dL (32-36); Mean Corpuscular Volume 91.8 fL (81-99); Monocyte# 0.52 X10^3/uL; NRBC Flagged by Analyzer 0 % (0-5); Neutrophil # 5.07 X10^3/uL (2.7-7.7); Neutrophil % 67.8 % (47-70); Platelet Count 284 K/mm3 (150-450); RBC Distribution Width CV 14.1 % (11.6-14.6); RBC Distribution Width SD 47.6 fl (35.1-43.9); Red Blood Count 4.86 M/mm3 (4.2-5.4); White Blood Count 7.5 K/mm3 (4.4-11.0)
[2023-10-12 12:30] LABS: Hemoglobin A1c 5.2 % (3.8-5.6)
[2023-10-12 12:32] LABS: Vitamin D,25 Hydroxy 54.2 ng/mL
[2023-10-12 12:37] LABS: AST(SGOT) 19 U/L (15-37); Alanine Aminotransfer ALT/SGPT 19 U/L (13-56); Albumin, Serum 3.7 g/dL (3.2-5.0); Alkaline Phosphatase 112 U/L (45-117); Anion Gap 7 (5-15); BUN 20 mg/dL (7-18); BUN/Creat Ratio 18.9 RATIO (10-20); Calcium,Total 9.8 mg/dL (8.5-10.1); Chloride 107 mmol/L (98-107); Cholesterol 171 mg/dL (200); Creatinine, Serum 1.06 mg/dL (0.55-1.02); EST Glomerular Filtration Rate 53 mL/min (>60); Est Glom Filt Rate - Afr Amer 65 mL/min (>60); Globulin 3.7 g/dL (2.2-4.2); Glucose 94 mg/dL (74-106); High Density Lipoprotein 93 mg/dL; Magnesium 2.1 mg/dL (1.6-2.6); Potassium 4.1 mmol/L (3.5-5.1); Protein, Total 7.4 g/dL (6.4-8.2); Sodium Level 138 mmol/L (136-145); Triglycerides 98 mg/dL; Very Low Density Lipoprotein 20 mg/dL (5-40)
[2023-10-12 12:38] LABS: Bacteria RARE /hpf (None Seen); Squamous Epithelial Cells - UA 0-5 SEEN /hpf (5-10); White Blood Cells 0-5 SEEN /hpf (0-5)
== END | disposition home or self-care (01) ==
LOC: MFPLAB 09:52
PROVIDERS: PCP Family Medicine; Visit Provider Family Medicine
DX: I10 Essential (primary) hypertension (principal); E55.9 Vitamin D deficiency, unspecified; R73.02 Impaired glucose tolerance (oral)
CPT/HCPCS: 36415; 80053; 80061; 81001; 82306; 83036; 83735; 85025

== ENCOUNTER → 2023-10-27 | Outpatient (CLI) | payer MEDICARE, SELFPAY ==
--- NOTE | 2023-10-27 13:58 | RAD_ITS ---
STUDY: X-RAY - SACRUM/COCCYX REASON FOR EXAM: Female, 78 years old. Pain/injury. TECHNIQUE: 3 views of the sacrum and coccyx were obtained. COMPARISON: None. FINDINGS: There is mild pubic symphysis arthrosis. There is mild degenerative arthrosis of the bilateral sacroiliac joints. Normal visualized sacral ala and fused sacral bodies. Normal sacrococcygeal junction with a normal angulation. Normal coccygeal segments. The presacral soft tissue structures are unremarkable. There is no demonstrated fracture or destructive osseous process. 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 No demonstrated fracture. Electronically Signed: Venancio Huertas MD at 15:32 EDT ,
== END | disposition home or self-care (01) ==
LOC: MTRAD 13:58
PROVIDERS: PCP Family Medicine; Referring Provider Nurse Practitioner Family; Visit Provider Nurse Practitioner Family
DX: M53.3 Sacrococcygeal disorders, not elsewhere classified (principal)
CPT/HCPCS: 72220

== ENCOUNTER → 2024-01-08 | Outpatient (CLI) | payer MEDICARE, SELFPAY ==
--- NOTE | 2024-01-08 10:56 | CDU_ITS ---
Reason For Study: CAROTID STENOSIS Rt. Velocities/BP Lt. Velocities/BP Prox CCA 85.3/13.5 cm/sec. Prox CCA 84.6/14.6 cm/sec. Mid CCA 110.2/15.7 cm/sec. Mid CCA 95.7/13.4 cm/sec. Dist CCA 79.8/16.0 cm/sec. Dist CCA 103.9/17.9 cm/sec. Prox ICA 105.1/20.4 cm/sec. Prox ICA 155.8/37.1 cm/sec. Mid ICA 102.7/20.4 cm/sec. Mid ICA 128.9/23.0 cm/sec. Dist ICA 134.4/30.3 cm/sec. Dist ICA 69.0/19.7 cm/sec. Rt. ICA/CCA = 134.4/110.2=1.2. Lt. ICA/CCA = 155.8/103.9=1.5. Prox ECA 94.1/6.2 cm/sec. Prox ECA 106.3/4.4 cm/sec. Rt. Vert. 15.9/26.3 cm/sec. Lt. Vert. 69.9/17.1 cm/sec. Right Extracranial There is intimal thickening but no significant atherosclerotic plaque noted in the right common carotid artery. There is heterogeneous, irregular atherosclerotic plaque noted in the right internal carotid artery. The atherosclerotic plaque causes acoustic shadowing. There is homogeneous, smooth atherosclerotic plaque noted in the right external carotid artery. Antegrade flow is noted in the right vertebral artery. Left Extracranial There is homogeneous, smooth atherosclerotic plaque noted in the left common carotid artery. There is heterogeneous, irregular atherosclerotic plaque noted in the left internal carotid artery. There is homogeneous, smooth atherosclerotic plaque noted in the left external carotid artery. Antegrade flow is noted in the left vertebral artery. VL/Carotid Duplex Ultrasound Interpretation Summary Moderate (50-69%) stenosis right extracranial internal carotid. Moderate (50-69%) stenosis left extracranial internal carotid. Patent and antegrade vertebrals bilaterally. Ordering Physician: Erick Mireles Referring Physician: Donny Herndon Performed By: Syl Mora RDCS, RVT
== END | disposition home or self-care (01) ==
LOC: CVS 10:55
PROVIDERS: PCP Family Medicine; Referring Provider Surgery Trauma Surgery; Visit Provider Surgery Trauma Surgery
DX: I65.23 Occlusion and stenosis of bilateral carotid arteries (principal)
CPT/HCPCS: 93880

== ENCOUNTER → 2024-06-23 | Outpatient (CLI) | payer MEDICARE, SELFPAY ==
[2024-06-23 11:04] LABS: Bacteria 0 SEEN /hpf (None Seen); Mucous, Urine 0 SEEN /hpf (<or=2+); Squamous Epithelial Cells - UA 0 SEEN /hpf (5-10); White Blood Cells 0 SEEN /hpf (0-5)
[2024-06-23 12:36] LABS: Absolute Lymphocyte Count 1.51 X10^3/uL (0.83-4.51); Absolute Neutrophil Count 4.5 X10^3/uL (2.0-7.7); Basophil# 0.04 X10^3/uL; Basophil% 0.6 % (0-1); Eosinophil# 0.25 X10^3/uL; Eosinophils% 3.7 % (0-5); Hematocrit 42.8 % (37-47); Hemoglobin 13.8 g/dL (12.0-15.0); Lymphocyte # 1.51 X10^3/ul (0.83-4.51); Lymphocyte % 22.3 % (19-41); Mean Corp Hgb Conc 32.2 g/dL (32-36); Mean Corpuscular Hgb 29.4 pg (27.0-32.0); Mean Corpuscular Volume 91.3 fL (81-99); Monocyte# 0.45 X10^3/uL; Monocyte% 6.6 % (0-10); NRBC Flagged by Analyzer 0 % (0-5); Neutrophil # 4.52 X10^3/uL (2.7-7.7); Neutrophil % 66.7 % (47-70); Platelet Count 256 K/mm3 (150-450); RBC Distribution Width CV 14.4 % (11.6-14.6); RBC Distribution Width SD 47.8 fl (35.1-43.9); Red Blood Count 4.69 M/mm3 (4.2-5.4); White Blood Count 6.8 K/mm3 (4.4-11.0)
[2024-06-23 12:51] LABS: Color, Urine Yellow (Yellow); Glucose, Dipstick Normal (Normal); Ketone-Dipstick Negative (Negative); Leukocyte Esterase-Dipstick Negative /ul (Negative); Nitrite-Dipstick Negative (Negative); Occult Blood-Urine Negative /ul (Negative); Protein-Dipstick Negative (Negative); Urine Bilirubin Dipstick Negative (Negative); Urine Clarity Clear (Clear); Urine Urobilinogen Normal (Normal)
[2024-06-23 13:06] LABS: Red Blood Cells-Urine 0 SEEN /hpf (0-5)
[2024-06-23 13:33] LABS: ALB/GLOB Ratio 1.7 RATIO (0.9-2.4); AST(SGOT) 23 U/L (<=31); Alanine Aminotransfer ALT/SGPT 15 U/L (<=34); Albumin, Serum 4.3 g/dL (3.4-4.8); Alkaline Phosphatase 103 U/L (35-104); Anion Gap 15 (5-15); BUN 20 mg/dL (4-19); Calcium,Total 9.6 mg/dL (7.6-11.0); Carbon Dioxide 20.3 mmol/L (21.0-32.0); Chloride 106 mmol/L (98-108); Cholesterol 168 mg/dL (<=200); Creatinine, Serum 1.03 mg/dL (0.70-1.20); EST Glomerular Filtration Rate 56 (>60); Globulin 2.6 g/dL (2.2-4.2); Glucose 93 mg/dL (70-99); High Density Lipoprotein 100 mg/dL; Low Density Lipoprotein Calc. 55 mg/dL; Magnesium 1.9 mg/dL (1.5-2.2); Potassium 3.9 mmol/L (3.3-5.1); Protein, Total 6.9 g/dL (5.9-8.4); Sodium Level 141 mmol/L (133-145); Triglycerides 64 mg/dL; Very Low Density Lipoprotein 13 mg/dL (5-40); cholesterol:hdl ratio screen 1.68
[2024-06-23 13:34] LABS: Vitamin D,25 Hydroxy 54.7 ng/mL (30-100)
[2024-06-23 13:50] LABS: Protein, Urine (Random) < 6.0 mg/dL (0.0-12.0); Protein:Creat Ratio UNABLE TO CALCULATE mg/g CRE (0-200)
[2024-06-23 19:39] LABS: Hemoglobin A1c 5.7 % (<=5.6)
== END | disposition home or self-care (01) ==
LOC: MFPLAB 09:57
PROVIDERS: PCP Family Medicine; Referring Provider Family Medicine; Visit Provider Family Medicine
DX: R73.02 Impaired glucose tolerance (oral) (principal); N18.30 Chronic kidney disease, stage 3 unspecified; E78.5 Hyperlipidemia, unspecified; E83.42 Hypomagnesemia
CPT/HCPCS: 36415; 80053; 80061; 81001; 82306; 82570; 83036; 83735; 84156; 85025

== ENCOUNTER → 2024-10-19 | Outpatient (CLI) | payer MEDICARE, SELFPAY ==
[2024-10-19 11:23] LABS: Mucous, Urine 0 SEEN /hpf (<or=2+)
[2024-10-19 12:47] LABS: Hematocrit 43.0 % (37-47); Hemoglobin 13.8 g/dL (12.0-15.0); Immature Granulocytes Count 0.010 X10^3/uL (0.0-0.0); Mean Corp Hgb Conc 32.1 g/dL (32-36); Mean Corpuscular Volume 92.3 fL (81-99); Mean Platelet Vol. 9.8 fl (6.2-12.0); NRBC Flagged by Analyzer 0 % (0-5); Platelet Count 270 K/mm3 (150-450); RBC Distribution Width CV 14.3 % (11.6-14.6); RBC Distribution Width SD 48.6 fl (35.1-43.9); Red Blood Count 4.66 M/mm3 (4.2-5.4); White Blood Count 6.9 K/mm3 (4.4-11.0)
[2024-10-19 13:04] LABS: Color, Urine Yellow (Yellow); Glucose, Dipstick Normal (Normal); Ketone-Dipstick Negative (Negative); Leukocyte Esterase-Dipstick 100 /ul (Negative); Nitrite-Dipstick Negative (Negative); Occult Blood-Urine Negative /ul (Negative); Protein-Dipstick 30 mg/dl (Negative); Specific Gravity, Urine 1.020 (1.002-1.030); Urine Bilirubin Dipstick Negative (Negative)
[2024-10-19 13:43] LABS: PTHIN 136 pg/mL (11-61)
[2024-10-19 14:02] LABS: Red Blood Cells-Urine 0-5 SEEN /hpf (0-5); Squamous Epithelial Cells - UA 0-5 SEEN /hpf (5-10)
[2024-10-19 14:05] LABS: AST(SGOT) 23 U/L (<=31); Alanine Aminotransfer ALT/SGPT 16 U/L (<=34); Albumin, Serum 4.3 g/dL (3.4-4.8); Alkaline Phosphatase 101 U/L (35-104); Anion Gap 14 (5-15); BUN 25 mg/dL (4-19); BUN/Creat Ratio 23.6 RATIO (10-20); Calcium,Total 9.7 mg/dL (7.6-11.0); Carbon Dioxide 22.0 mmol/L (21.0-32.0); Chloride 107 mmol/L (98-108); Cholesterol 154 mg/dL (<=200); Globulin 2.7 g/dL (2.2-4.2); Glucose 85 mg/dL (70-99); Low Density Lipoprotein Calc. 55 mg/dL; Magnesium 2.0 mg/dL (1.5-2.2); Potassium 4.0 mmol/L (3.3-5.1); Triglycerides 84 mg/dL; Very Low Density Lipoprotein 17 mg/dL (5-40); Vitamin D,25 Hydroxy 61.8 ng/mL (30-100); cholesterol:hdl ratio screen 1.88
== END | disposition home or self-care (01) ==
LOC: MFPLAB 11:19
PROVIDERS: PCP Family Medicine; Referring Provider Family Medicine; Visit Provider Family Medicine
DX: M85.80 Other specified disorders of bone density and structure, unspecified site (principal); E78.5 Hyperlipidemia, unspecified; E83.42 Hypomagnesemia; R73.02 Impaired glucose tolerance (oral); I10 Essential (primary) hypertension; N25.81 Secondary hyperparathyroidism of renal origin
CPT/HCPCS: 36415; 80053; 80061; 81001; 82306; 83036; 83735; 83970; 85025

== ENCOUNTER 2025-01-06 09:03 | Emergency (ER) | payer MEDICARE, SELFPAY ==
[2025-01-06 09:05] VITALS: BP 137/93; PULSE 83; RESP 12; TEMP 36.9; O2SAT 95; BMI 34.4
[2025-01-06 09:57] LABS: Mucous, Urine 0 SEEN /hpf (<or=2+); Red Blood Cells-Urine 0 SEEN /hpf (0-5)
[2025-01-06] MEDS: 0.9% Normal Saline (1000mL) 1,000 ML 1000 ML IV (09:57)
[2025-01-06 10:01] LABS: Hematocrit 41.6 % (37-47); Hemoglobin 13.8 g/dL (12.0-15.0); Immature Granulocytes Count 0.010 X10^3/uL (0.0-0.0); Mean Corp Hgb Conc 33.2 g/dL (32-36); Mean Corpuscular Volume 90.0 fL (81-99); Mean Platelet Vol. 9.3 fl (6.2-12.0); NRBC Flagged by Analyzer 0 % (0-5); Platelet Count 206 K/mm3 (150-450); RBC Distribution Width CV 14.0 % (11.6-14.6); RBC Distribution Width SD 46.2 fl (35.1-43.9); Red Blood Count 4.62 M/mm3 (4.2-5.4); White Blood Count 5.8 K/mm3 (4.4-11.0)
--- NOTE | 2025-01-06 10:03 | EX.ED.DYSGE1 ---
HPI History of Present Illness Chief Complaint: Weakness Narrative Narrative: Chief complaint and HPI: 79-year-old female with past medical history of CKD, HTN, HLD, proximal SVT presents for evaluation of nausea, vomiting, diarrhea. Patient states on Thursday she ate out for a meal. She said later that evening she developed nausea, vomiting, diarrhea. Concerned she has food poisoning. vomiting and diarrhea nonbloody. Nausea and vomiting have resolved however states she still has diarrhea if not taking Imodium. States she has been feeling weak. She denies any fever, chills, URI symptoms, shortness of breath, chest pain, abdominal pain, dysuria. Review of systems: See HPI Medications: As listed on the chart Allergies: As listed on the chart PFSH: Per chart Vital signs: As listed on the chart. Reviewed. Physical exam: Gen: A&O x3, NAD Head: Normocephalic, atraumatic Eyes: No sclera icterus, conjunctiva clear ENT: Dry mucous membranes Neck: Trachea midline CV: RRR, no murmurs Resp: Lungs CTA BL, no w/r/c GI: Abd soft, non-distended, non-tender, no r/r/g Musc: Full ROM, no deformity Skin: Warm, dry Neuro: Alert, oriented, grossly intact, sensation intact Psych: Cooperative, appropriate mood and affect [facility] Medical History Bilateral carotid artery stenosis CKD (chronic kidney disease) stage 3, GFR 30-59 ml/min Dizziness Essential hypertension Hiatal hernia with gastroesophageal reflux Hiatal hernia with GERD and esophagitis Hyperlipidemia Mitral valve insufficiency Obesity 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 Paroxysmal SVT (supraventricular tachycardia) Presence of cardiac pacemaker Sick sinus syndrome Home Medications ?Medication ?Instructions ?Recorded ?Last Taken ?Type aspirin 81 mg tablet,delayed 81 mg PO QDAY 11/25/17 05/05/23 History release coenzyme Q10 100 mg capsule (Co 100 mg PO QDAY #1 cap 11/25/17 Unknown Rx Q-10) cholecalciferol (vitamin D3) 125 5,000 unit PO DAILY 02/03/19 Unknown History mcg (5,000 unit) tablet ascorbic acid (vitamin C) 1,000 mg 1 g PO DAILY 07/15/21 Unknown History tablet estradiol 0.01% (0.1 mg/gram) 1 g vaginal 2XW 07/15/21 Unknown History vaginal cream (Estrace) [id number] 8 mg-folic 400 1 tab PO DAILY 07/15/21 Unknown History mcg-K 50 mcg-lutein 300 mcg tablet (Centrum Silver Women) rosuvastatin 20 mg tablet 20 mg PO DAILY 07/15/21 Unknown History turmeric root extract 1,053 mg 1,053 mg PO BID 02/17/22 Unknown History tablet vitamin B complex 1 tab PO DAILY 02/17/22 Unknown History magnesium glycinate 400 mg PO DAILY 09/29/22 Unknown History amlodipine 2.5 mg tablet 2.5 mg PO DAILY #90 tabs 02/05/24 Unknown Rx potassium chloride 10 mEq 10 meq PO DAILY #90 tabs 02/05/24 Unknown Rx tablet,extended release furosemide 40 mg tablet (Lasix) 40 mg PO DAILY #90 tabs 06/21/24 Unknown Rx metoprolol succinate 25 mg 25 mg PO QDAY #90 tabs 06/21/24 Unknown Rx tablet,extended release 24 hr flecainide 50 mg tablet 50 mg PO Q12H #180 tabs 07/18/24 Unknown Rx Allergy/AdvReac Type Severity Reaction Status Date / Time nickel AdvReac Mild Rash Verified 01/06/25 12:02 Family History Mother CAD (coronary artery disease) Brother Aortic aneurysm Father CAD (coronary artery disease) Other CKD (chronic kidney disease) stage 3, GFR 30-59 ml/min Surgical History History of cholecystectomy Hx of appendectomy Social History Smoking Status: Former smoker how long ago did patient quit smokin years ago alcohol intake: current alcohol intake frequency: holidays/special occasions only Alcohol type: hard liquor substance use type: does not use caffeine: Yes Type: carbonated beverages and tea what type of physical activity do you participate in: none seatbelt use: always do you feel safe at home: Yes EXAM Physical Exam Const Vital Signs: 01/06/25 09:04 01/06/25 09:05 01/06/25 10:04 Temperature 98.5 F Temperature Source Temporal Pulse Rate 83 Respiratory Rate 12 Respiratory Effort Normal Non-Labored Respiratory Pattern Normal Blood Pressure 137/93 H 108/76 Blood Pressure Mean 107 86 Pulse Ox 95 Oxygen Delivery Method Room Air 01/06/25 11:00 01/06/25 11:06 Temperature 98 F Temperature Source Temporal Pulse Rate 65 67 Respiratory Rate 18 12 Respiratory Effort Respiratory Pattern Blood Pressure 101/74 108/76 Blood Pressure Mean 83 86 Pulse Ox 95 97 Oxygen Delivery Method Room Air MDM MDM MDM Narrative Medical decision making narrative: 79-year-old female with past medical history of CKD, HTN, HLD, proximal SVT presents for evaluation of nausea, vomiting, diarrhea. Patient states on Thursday she ate out for a meal. She said later that evening she developed nausea, vomiting, diarrhea. Concerned she has food poisoning. vomiting and diarrhea nonbloody. Nausea and vomiting have resolved however states she still has diarrhea if not taking Imodium. States she has been feeling weak. Differential diagnosis includes but is not limited to viral gastroenteritis, food poisoning, electrolyte abnormality, dehydration, UTI. Patient's abdominal exam is unremarkable therefore I do not think any CT abdomen pelvis is needed at this time. Low suspicion for parasites or C. difficile given that patient has not been on any recent antibiotics however if patient has a bowel movement here in the emergency department will obtain stool cultures and C. difficile. NS bolus and Zofran ordered for symptoms. CBC without leukocytosis or anemia. CMP relatively unremarkable without BEN, transaminitis. Lipase unremarkable. UA negative for UTI as well as ketones. C. difficile negative. Gastrointestinal panel pending. Low suspicion for any bacterial infection for patient's diarrhea therefore she will not be placed on antibiotics. Imodium as needed for diarrhea. Recommended fluid intake and bland foods. Follow-up with PCP. Return precautions explained. She confirmed understand the plan. Patient stable to discharge home. Impression: 1. Diarrhea 2. Nausea and vomiting Lab Data Labs: Laboratory Results - last 24 hr 01/06/25 01/06/25 09:42 12:27 WBC 5.8 RBC 4.62 Hgb 13.8 Hct 41.6 MCV 90.0 MCH 29.9 MCHC 33.2 RDW Std Deviation 46.2 H RDW Coeff of [place] 14.0 Plt Count 206 MPV 9.3 Immature Gran % (Auto) 0.200 Neut % (Auto) 69.4 Lymph % (Auto) 18.5 L Morrill % (Auto) 7.8 Eos % (Auto) 3.8 Baso % (Auto) 0.3 Absolute Neuts (auto) 4.0 Absolute Lymphs (auto) 1.07 Nucleated RBC % 0 Sodium 141 Potassium 3.8 Chloride 109 H Carbon Dioxide 20.0 L Anion Gap 11 BUN 14 Creatinine 0.89 Estim Creat Clear Calc 61.09 Est GFR (MDRD) Non-Af 66 BUN/Creatinine Ratio 15.2 Glucose 88 Calcium 8.8 Magnesium 1.8 Total Bilirubin 0.30 AST 31 ALT 29 Alkaline Phosphatase 88 Total Protein 6.1 Albumin 3.9 Globulin 2.2 Albumin/Globulin Ratio 1.8 Lipase 25 Urine Color Yellow Urine Clarity Clear Urine pH 6.0 Ur Specific [place] 1.010 Urine Protein 15 H Urine Glucose (UA) Normal Urine Ketones Negative Urine Occult Blood Negative Urine Nitrite Negative Urine Bilirubin Negative Urine Urobilinogen Normal Ur Leukocyte Esterase Negative Urine RBC 0 SEEN Urine WBC 0 SEEN Ur Squamous Epith Cells 0-5 SEEN Urine Bacteria 0 SEEN Urine Mucus 0 SEEN Discharge Plan Triage Chief Complaint: Weakness ED Provider: Wallace Loo Dx/Rx/DC Orders Clinical Impression: Diarrhea, Nausea & vomiting Instructions: ED Diarrhea, Unknown Cause, ED Diet Vomiting Diarrhea Prescriptions: No Action estradiol [Estrace] 0.01 % (0.1 mg/gram) cream 1 g VAGINAL 2XW rosuvastatin 20 mg tablet 20 mg PO DAILY Centrum Silver Women 8 mg iron-400 mcg-300 mcg tablet 1 tab PO DAILY ascorbic acid (vitamin C) 1,000 mg tablet 1 g PO DAILY vitamin B complex Tablet 1 tab PO DAILY turmeric root extract 1,053 mg tablet 1,053 mg PO BID magnesium glycinate 100 mg magnesium capsule 400 mg PO DAILY amlodipine 2.5 mg tablet 2.5 mg PO DAILY Qty: 90 3RF potassium chloride 10 mEq tablet extended release 10 meq PO DAILY Qty: 90 3RF cholecalciferol (vitamin D3) 5,000 UNIT tablet 5,000 unit PO DAILY aspirin 81 mg tablet,delayed release (DR/EC) 81 mg PO QDAY coenzyme Q10 [Co Q-10] 100 mg capsule 100 mg PO QDAY Qty: 1 0RF furosemide [Lasix] 40 mg tablet 40 mg PO DAILY Qty: 90 3RF metoprolol succinate 25 mg tablet extended release 24 hr 25 mg PO QDAY Qty: 90 3RF flecainide 50 mg tablet 50 mg PO Q12H Qty: 180 3RF Primary Care Provider: Donny Herndon Referrals: Donny Herndon MD [Primary Care Provider, [facility]] Activity Restrictions/Additional Instructions: Follow-up with primary care physician. Drink plenty of fluids. Return back to ED if symptoms change or worsen. Print Language: Swedish Disposition Disposition: Home, Self Care
[2025-01-06 10:04] VITALS: BP 108/76
[2025-01-06 10:42] LABS: AST(SGOT) 31 U/L (<=31); Alanine Aminotransfer ALT/SGPT 29 U/L (<=34); Albumin, Serum 3.9 g/dL (3.4-4.8); Alkaline Phosphatase 88 U/L (35-104); Anion Gap 11 (5-15); BUN 14 mg/dL (4-19); BUN/Creat Ratio 15.2 RATIO (10-20); Calcium,Total 8.8 mg/dL (7.6-11.0); Carbon Dioxide 20.0 mmol/L (21.0-32.0); Chloride 109 mmol/L (98-108); Estimated Creatinine Clearance 61.09 ml/min (50-250); Globulin 2.2 g/dL (2.2-4.2); Glucose 88 mg/dL (70-99); Lipase 25 U/L (13-75); Potassium 3.8 mmol/L (3.3-5.1)
[2025-01-06 11:00] VITALS: BP 101/74; PULSE 65; RESP 18; O2SAT 95
[2025-01-06 11:02] LABS: Magnesium 1.8 mg/dL (1.5-2.2)
[2025-01-06 11:06] VITALS: BP 108/76; PULSE 67; RESP 12; TEMP 36.6; O2SAT 97
[2025-01-06 12:34] LABS: Color, Urine Yellow (Yellow); Glucose, Dipstick Normal (Normal); Ketone-Dipstick Negative (Negative); Leukocyte Esterase-Dipstick Negative /ul (Negative); Nitrite-Dipstick Negative (Negative); Occult Blood-Urine Negative /ul (Negative); Protein-Dipstick 15 mg/dl (Negative); Specific Gravity, Urine 1.010 (1.002-1.030); Urine Bilirubin Dipstick Negative (Negative)
[2025-01-06 12:41] LABS: Squamous Epithelial Cells - UA 0-5 SEEN /hpf (5-10)
[2025-01-06 13:00] VITALS: PULSE 61; RESP 16; O2SAT 96
[2025-01-06 13:37] VITALS: BP 110/88; PULSE 61; RESP 16; TEMP 36.5; O2SAT 96
== END 2025-01-06 13:38 | disposition home or self-care (01) ==
PROVIDERS: Emergency Provider Surgery; PCP Family Medicine; Visit Provider Surgery
DX: R19.7 Diarrhea, unspecified (principal); N18.30 Chronic kidney disease, stage 3 unspecified; R53.1 Weakness; Z87.891 Personal history of nicotine dependence; E78.5 Hyperlipidemia, unspecified; I12.9 Hypertensive chronic kidney disease with stage 1 through stage 4 chronic kidney disease, or unspecified chronic kidney disease; Z90.49 Acquired absence of other specified parts of digestive tract; R11.2 Nausea with vomiting, unspecified; Z95.0 Presence of cardiac pacemaker
CPT/HCPCS: 80053; 81001; 83690; 83735; 85025; 87493; 96361; 96374; 99284; A4216; J2405

== ENCOUNTER → 2025-01-16 | Outpatient (CLI) | payer MEDICARE, SELFPAY ==
--- NOTE | 2025-01-16 12:42 | CDU_ITS ---
Reason For Study Reason For Study: Carotid Stenosis Rt. Velocities/BP Lt. Velocities/BP Prox CCA 92/14 cm/sec. Prox CCA 97/18 cm/sec. Mid CCA 81/16 cm/sec. Mid CCA 88/16 cm/sec. Dist CCA 72/15 cm/sec. Dist CCA 94/17 cm/sec. Prox ICA 94/20 cm/sec. Prox ICA 136/34 cm/sec. Mid ICA 84/24 cm/sec. Mid ICA 127/23 cm/sec. Dist ICA 100/28 cm/sec. Dist ICA 97/25 cm/sec. Rt. ICA/CCA = 1.2. Lt. ICA/CCA = 1.5. Prox ECA 103/8 cm/sec. Prox ECA 122/7 cm/sec. Rt. Vert. 15/0 cm/sec. Lt. Vert. 66/20 cm/sec. Right Extracranial There is heterogeneous, irregular atherosclerotic plaque noted in the right common carotid artery. There is heterogeneous, irregular atherosclerotic plaque noted in the right internal carotid artery. There is no significant atherosclerotic plaque noted in the right external carotid artery. Pre-steal waveform noted Rt Vert A. Left Extracranial There is heterogeneous, irregular atherosclerotic plaque noted in the left common carotid artery. There is heterogeneous, irregular atherosclerotic plaque noted in the left internal carotid artery. There is intimal thickening but no significant atherosclerotic plaque noted in the left external carotid artery. Antegrade flow is noted in the left vertebral artery. Procedure Carotid Duplex 85066. This is a Carotid Duplex examination using B-mode, color flow and specral Doppler. Exam performed in department. VL/Carotid Duplex Ultrasound Interpretation Summary Mild (<50%) stenosis right extracranial internal carotid. Moderate (50-69%) stenosis left extracranial internal carotid. The Right vertebral is patent with pre-steal morphology. The Left vertebral is patent and antegrade. Ordering Physician: Eula Cross Referring Physician: Donny Herndon Performed By: Linda Walter, JACINTO, RVT
== END | disposition home or self-care (01) ==
LOC: CVS 12:42
PROVIDERS: PCP Family Medicine; Referring Provider Physician Assistant; Visit Provider Physician Assistant
DX: I65.23 Occlusion and stenosis of bilateral carotid arteries (principal)
CPT/HCPCS: 93880